=== PATIENT | female | born 1955 | race African-American/Black ===

== ENCOUNTER 2016-09-26 03:07 | Emergency (ER) | payer OTHER, MEDICAID ==
[~2016-09-26] VITALS: Ht 170.2 cm; Wt 50.0 kg
[~2016-09-26 03:07] MED LIST: CARV3 PO; CHOL200016 PO; ESCI20TA PO; FERR-89 PO; FOLI1 PO; FURO20 PO; LEVO50 PO; LISI2.5T2 PO; MAGOX PO; MIRT15 PO; MULT1CAP32 PO; OMEP20CA10 PO; POTA20TA11 PO; SPIR25TA4 PO; TRAZ-144 PO
[2016-09-26] MEDS ORDERED: TRAM50TA4 PO (03:34)
[2016-09-26] MEDS ORDERED: HYDR-309 PO (03:34)
[2016-09-26] MEDS ORDERED: KETOROLAC TROMETHAMINE 60 MG/2 ML VIAL IM ONE (04:30)
[2016-09-26 05:16] VITALS: BP 136/95
[2017-01-24] MEDS ORDERED: CEFO1VIA IV (16:10)
[2017-01-24] MEDS ORDERED: HEPA500017 SQ (16:12)
[2017-01-24] MEDS ORDERED: PROM5SYR2 PO (16:15)
== END 2016-09-26 05:44 | disposition home or self-care (01) ==
LOC: EMS 03:09
DX: Z76.0 Encounter for issue of repeat prescription (principal); G89.29 Other chronic pain; R51 Headache; F12.10 Cannabis abuse, uncomplicated; Z95.0 Presence of cardiac pacemaker; I50.9 Heart failure, unspecified; K21.9 Gastro-esophageal reflux disease without esophagitis; I10 Essential (primary) hypertension; E03.9 Hypothyroidism, unspecified; Z79.899 Other long term (current) drug therapy
CPT/HCPCS: 96372; 99283; J1885

== ENCOUNTER 2016-10-08 15:16 | Inpatient (IN) | payer OTHER ==
[~2016-10-08] VITALS: Ht 167.6 cm; Wt 53.5 kg
[~2016-10-08 15:16] MED LIST changes: +HYDR-309 PO; +TRAM50TA4 PO
[2016-10-08] MEDS ORDERED: SODIUM CHLORIDE 0.9% 1,000 ML IV ONE (16:45)
[2016-10-08] MEDS ORDERED: HYDROmorphone 2 MG/ML SYRINGE IVP ONE (16:45)
[2016-10-08 17:24] LABS: BASOPHILS # (AUTO) 0.03 K/uL (0.00-0.20); BASOPHILS % (AUTO) 0.6 % (0.0-2.0); EOSINOPHILS # (AUTO) 0.02 K/uL (0.00-0.70); EOSINOPHILS % (AUTO) 0.42 % (1.0-6.0); HEMATOCRIT 40.2 % (36-46); HEMOGLOBIN 13.1 g/dL (12.0-16.0); LYMPHOCYTES # (AUTO) 2.4 K/uL (1.0-4.8); LYMPHOCYTES % (AUTO) 51.6 % (22.0-44.0); MEAN CORPUSCULAR HEMOGLOBIN 29.2 pg (26.0-34.0); MEAN CORPUSCULAR HGB CONC 32.6 G/dL (31.0-37.0); MEAN CORPUSCULAR VOLUME 90 fL (80-100); MONOCYTES # (AUTO) 0.4 K/uL (0.1-1.0); NEUTROPHILS # (AUTO) 1.8 K/uL (1.8-7.7); NEUTROPHILS % (AUTO) 38.4 % (40.0-70.0); PLATELET COUNT (AUTO) 174 K/uL (150-450); RED BLOOD CELL COUNT(AUTO) 4.48 MIL/uL (4.00-5.20); RED CELL DISTRIBUTION WIDTH 17.2 % (11.5-14.5); WHITE BLOOD COUNT (AUTO) 4.7 K/uL (4.5-11.0)
[2016-10-08 17:31] LABS: INR 1.3 (0.9-1.1); PROTHROMBIN TIME 13.4 SEC (9.4-11.6)
[2016-10-08 17:35] LABS: ANION GAP 15 mmol/L (8-16); CALCIUM, TOTAL 7.7 mg/dL (8.8-10.5); CARBON DIOXIDE 18 mmol/L (22-29); CHLORIDE 106 mmol/L (98-107); CREATININE 0.88 mg/dL (0.60-1.30); GLOMERULAR FILTR. RATE CALC > 60 mL/min (>60); POTASSIUM 3.8 mmol/L (3.5-5.1); SODIUM SERUM 139 mmol/L (136-145); UREA NITROGEN, BLOOD 16 mg/dL (7-18)
[2016-10-08 17:39] LABS: ALANINE AMINOTRANSFERASE 54 U/L (12-78); ALBUMIN 3.5 g/dL (3.4-5.0); ASPARTATE AMINOTRANSFERASE 59 U/L (15-37); BILIRUBIN,TOTAL 1.5 mg/dL (0.1-1.0); TOTAL PROTEIN, SERUM 7.4 g/dL (6.4-8.2)
[2016-10-08 18:05] LABS: RBC MORPHOLOGY COMMENT ABNORMAL RBC MORPH
[2016-10-08] MEDS ORDERED: ONDANSETRON HCL 4 MG/2 ML VIAL IVP PRN (18:45)
[2016-10-08] MEDS ORDERED: ZOLPIDEM TARTRATE 5 MG TABLET PO PRN (18:45)
[2016-10-08] MEDS ORDERED: OxyCODONE HCL/ACETAMINOPHEN 5-325 MG TABLET PO PRN (18:45)
[2016-10-08 21:42] VITALS: BP 141/92
[2016-10-08 23:47] VITALS: BP 134/88
[2016-10-08] MEDS: HEPARIN SODIUM,PORCINE 5,000 UNITS/ML VIAL SQ SCH (23:51)
[2016-10-09 04:34] VITALS: BP 137/73
[2016-10-09] MEDS: HYDROmorphone 2 MG/ML SYRINGE IVP PRN ×5 (04:48→23:58)
[2016-10-09] MEDS: LEVOTHYROXINE SODIUM 50 MCG TABLET PO SCH (05:39)
[2016-10-09 07:08] VITALS: BP 109/69
[2016-10-09 07:13] LABS: BASOPHILS % (AUTO) 0.3 % (0.0-2.0); EOSINOPHILS % (AUTO) 0.4 % (1.0-6.0); HEMATOCRIT 41.7 % (36-46); HEMOGLOBIN 13.3 g/dL (12.0-16.0); LYMPHOCYTES # (AUTO) 1.7 K/uL (1.0-4.8); LYMPHOCYTES % (AUTO) 27.2 % (22.0-44.0); MEAN CORPUSCULAR HEMOGLOBIN 28.7 pg (26.0-34.0); MEAN CORPUSCULAR HGB CONC 31.8 G/dL (31.0-37.0); MEAN CORPUSCULAR VOLUME 90 fL (80-100); MONOCYTES # (AUTO) 0.6 K/uL (0.1-1.0); MONOCYTES % (AUTO) 9.9 % (2.0-9.0); NEUTROPHILS # (AUTO) 3.8 K/uL (1.8-7.7); NEUTROPHILS % (AUTO) 62.2 % (40.0-70.0); PLATELET COUNT (AUTO) 157 K/uL (150-450); RED BLOOD CELL COUNT(AUTO) 4.62 MIL/uL (4.00-5.20); RED CELL DISTRIBUTION WIDTH 17.5 % (11.5-14.5); WHITE BLOOD COUNT (AUTO) 6.1 K/uL (4.5-11.0)
[2016-10-09] MEDS: HEPARIN SODIUM,PORCINE 5,000 UNITS/ML VIAL SQ SCH ×3 (08:30→23:50)
[2016-10-09] MEDS: PANTOPRAZOLE SODIUM 40 MG DR TABLET PO SCH (08:30)
[2016-10-09] MEDS: FUROSEMIDE 20 MG TABLET PO SCH (08:30)
[2016-10-09] MEDS: FOLIC ACID 1 MG TABLET PO SCH (08:30)
[2016-10-09] MEDS: SPIRONOLACTONE 25 MG TABLET PO SCH (08:30)
[2016-10-09] MEDS: MAGNESIUM OXIDE 400 MG TABLET PO SCH (08:30)
[2016-10-09] MEDS: FERROUS SULFATE 325 MG EC TABLET PO SCH ×3 (08:30→17:18)
[2016-10-09] MEDS: CHOLECALCIFEROL (VIT D3) 2,000 UNITS TABLET PO SCH (08:31)
[2016-10-09] MEDS: LISINOPRIL 5 MG TABLET PO SCH (08:31)
[2016-10-09] MEDS: ESCITALOPRAM OXALATE 20 MG TABLET PO SCH (08:31)
[2016-10-09] MEDS: CARVEDILOL 3.125 MG TABLET PO SCH (08:31)
[2016-10-09 12:02] VITALS: BP 122/81
[2016-10-09 16:03] VITALS: BP 121/79
[2016-10-09 19:19] VITALS: BP 123/82
[2016-10-09] MEDS: TraZODone HCL 50 MG TABLET PO SCH (20:05)
[2016-10-09] MEDS: MIRTAZAPINE 15 MG TABLET PO SCH (20:06)
[2016-10-09] MEDS ORDERED: 0.9% SODIUM CHLORIDE 10 ML SYRINGE IVP PRN (21:15)
[2016-10-09 23:26] VITALS: BP 140/87
[2016-10-10 04:13] VITALS: BP 134/84
[2016-10-10] MEDS: HYDROmorphone 2 MG/ML SYRINGE IVP PRN ×3 (05:36→18:45)
[2016-10-10] MEDS: LEVOTHYROXINE SODIUM 50 MCG TABLET PO SCH (05:36)
[2016-10-10 07:44] VITALS: BP 146/89
[2016-10-10] MEDS: FERROUS SULFATE 325 MG EC TABLET PO SCH ×3 (08:00→17:30)
[2016-10-10] MEDS: HEPARIN SODIUM,PORCINE 5,000 UNITS/ML VIAL SQ SCH (08:00)
[2016-10-10] MEDS: PANTOPRAZOLE SODIUM 40 MG DR TABLET PO SCH (08:08)
[2016-10-10] MEDS: CHOLECALCIFEROL (VIT D3) 2,000 UNITS TABLET PO SCH (08:08)
[2016-10-10] MEDS: ESCITALOPRAM OXALATE 20 MG TABLET PO SCH (08:09)
[2016-10-10] MEDS: LISINOPRIL 5 MG TABLET PO SCH (08:09)
[2016-10-10] MEDS: FOLIC ACID 1 MG TABLET PO SCH (08:09)
[2016-10-10] MEDS: CARVEDILOL 3.125 MG TABLET PO SCH (08:09)
[2016-10-10] MEDS: MAGNESIUM OXIDE 400 MG TABLET PO SCH (08:09)
[2016-10-10] MEDS: FUROSEMIDE 20 MG TABLET PO SCH (08:09)
[2016-10-10] MEDS: SPIRONOLACTONE 25 MG TABLET PO SCH (08:10)
[2016-10-10] MEDS ORDERED: SODIUM CL IRRIG SOLN BAG 3,000 ML IRRIG ONE (09:06)
[2016-10-10] MEDS ORDERED: TRANEXAMIC ACID 1,000 MG in DEXTROSE 5%-WATER 50 ML IV ONE (09:30)
[2016-10-10] MEDS ORDERED: SODIUM CHLORIDE 0.9% 250 ML IV ONE (10:33)
[2016-10-10] MEDS ORDERED: VANCOMYCIN HCL 1 GM/VIAL ONE (11:13)
[2016-10-10] MEDS: BUPIVACAINE HCL/PF 0.5% 30 ML VIAL ONE ×2 (11:15→11:35)
[2016-10-10] MEDS ORDERED: MORPHINE SULFATE 4 MG/ML SYRINGE IVP ONE (12:00)
[2016-10-10] MEDS ORDERED: ROCURONIUM BROMIDE 10 MG/ML 5 ML VIAL IVP ONE (12:00)
[2016-10-10] MEDS ORDERED: FentaNYL CITRATE-PF 250 MCG/5 ML VIAL IVP ONE (12:00)
[2016-10-10] MEDS ORDERED: MIDAZOLAM HCL 2 MG/2 ML VIAL IVP ONE (12:00)
[2016-10-10] MEDS ORDERED: LIDOCAINE HCL/PF 2% 5 ML VIAL INJ ONE (12:00)
[2016-10-10] MEDS ORDERED: 0.9% SODIUM CHLORIDE 10 ML VIAL IVP ONE (12:00)
[2016-10-10] MEDS ORDERED: MORPHINE SULFATE/PF 0.5 MG/ML 10 ML AMP IVP ONE (12:00)
[2016-10-10] MEDS ORDERED: SUCCINYLCHOLINE CHLORIDE 20 MG/ML 10 ML VIAL IVP ONE (12:00)
[2016-10-10] MEDS ORDERED: PHENYLEPHRINE HCL 10 MG/ML VIAL IVP ONE (12:00)
[2016-10-10] MEDS ORDERED: FUROSEMIDE 40 MG/4 ML VIAL ONE (12:17)
[2016-10-10] MEDS ORDERED: SODIUM CHLORIDE 0.9% 1,000 ML IV ONE (12:33)
[2016-10-10 12:35] LABS: ABG A-A DIFF O2 454.3 mmHg (10-20.0); ABG BASE EXCESS -8.4 mmol/L (-2.0-3.0); ABG HCO3 17.7 mmol/L (22.0-26.0); ABG OXYHEMOGLOBIN 97.6 % (94.0-100.0); ABG PCO2 52 mmHg (35-45); TEMPERATURE, FAHRENHEIT, BG 99.6 FAHREN (96.0-98.6)
[2016-10-10 12:44] LABS: ABG PH 7.197 (7.35-7.450)
[2016-10-10 12:45] LABS: BASOPHILS % (AUTO) 0.2 % (0.0-2.0); EOSINOPHILS % (AUTO) 0.3 % (1.0-6.0); HEMATOCRIT 36.7 % (36-46); HEMOGLOBIN 11.6 g/dL (12.0-16.0); LYMPHOCYTES # (AUTO) 1.6 K/uL (1.0-4.8); LYMPHOCYTES % (AUTO) 14.1 % (22.0-44.0); MEAN CORPUSCULAR HEMOGLOBIN 28.9 pg (26.0-34.0); MEAN CORPUSCULAR HGB CONC 31.7 G/dL (31.0-37.0); MEAN CORPUSCULAR VOLUME 91 fL (80-100); MONOCYTES # (AUTO) 0.7 K/uL (0.1-1.0); MONOCYTES % (AUTO) 6.4 % (2.0-9.0); NEUTROPHILS # (AUTO) 9.1 K/uL (1.8-7.7); PLATELET COUNT (AUTO) 125 K/uL (150-450); RED BLOOD CELL COUNT(AUTO) 4.03 MIL/uL (4.00-5.20); RED CELL DISTRIBUTION WIDTH 16.8 % (11.5-14.5); WHITE BLOOD COUNT (AUTO) 11.5 K/uL (4.5-11.0)
[2016-10-10] MEDS: PHENYLEPHRINE 200 MG/D5%-WATER 250 ML IV PRN ×3 (14:06→14:27)
[2016-10-10 16:00] VITALS: BP 135/64
[2016-10-10] MEDS: CeFAZolin 2 GM/DEXTROSE 50 ML IV SCH ×2 (18:20→23:20)
[2016-10-10 18:45] VITALS: BP 108/57
[2016-10-10 19:00] VITALS: BP 98/49
[2016-10-10 20:00] VITALS: BP 93/65
[2016-10-10] MEDS: MIRTAZAPINE 15 MG TABLET PO SCH (21:44)
[2016-10-10] MEDS: TraZODone HCL 50 MG TABLET PO SCH (21:44)
[2016-10-11] VITALS (18 sets, daily range): BP systolic 73–164; BP diastolic 43–77
[2016-10-11] MEDS ORDERED: SODIUM CHLORIDE 0.9% 250 ML IV ONE (02:21)
[2016-10-11] MEDS: CeFAZolin 2 GM/DEXTROSE 50 ML IV SCH (05:06)
[2016-10-11 05:22] LABS: BASOPHILS # (AUTO) 0.01 K/uL (0.00-0.20); BASOPHILS % (AUTO) 0.1 % (0.0-2.0); EOSINOPHILS # (AUTO) 0.12 K/uL (0.00-0.70); EOSINOPHILS % (AUTO) 1.17 % (1.0-6.0); HEMATOCRIT 29.9 % (36-46); HEMOGLOBIN 9.8 g/dL (12.0-16.0); LYMPHOCYTES # (AUTO) 1.3 K/uL (1.0-4.8); LYMPHOCYTES % (AUTO) 12.9 % (22.0-44.0); MEAN CORPUSCULAR HEMOGLOBIN 29.5 pg (26.0-34.0); MEAN CORPUSCULAR HGB CONC 32.8 G/dL (31.0-37.0); MEAN CORPUSCULAR VOLUME 90 fL (80-100); MONOCYTES # (AUTO) 1.2 K/uL (0.1-1.0); MONOCYTES % (AUTO) 11.4 % (2.0-9.0); NEUTROPHILS # (AUTO) 7.5 K/uL (1.8-7.7); NEUTROPHILS % (AUTO) 74.4 % (40.0-70.0); PLATELET COUNT (AUTO) 103 K/uL (150-450); RED BLOOD CELL COUNT(AUTO) 3.32 MIL/uL (4.00-5.20); WHITE BLOOD COUNT (AUTO) 10.1 K/uL (4.5-11.0)
[2016-10-11] MEDS: ACETAMINOPHEN 325 MG TABLET PO PRN (05:26)
[2016-10-11] MEDS: LEVOTHYROXINE SODIUM 50 MCG TABLET PO SCH (05:26)
[2016-10-11 05:30] LABS: ANION GAP 10 mmol/L (8-16); CALCIUM, TOTAL 6.7 mg/dL (8.8-10.5); CARBON DIOXIDE 23 mmol/L (22-29); CHLORIDE 104 mmol/L (98-107); CREATININE 0.81 mg/dL (0.60-1.30); GLOMERULAR FILTR. RATE CALC > 60 mL/min (>60); POTASSIUM 3.6 mmol/L (3.5-5.1); SODIUM SERUM 137 mmol/L (136-145); UREA NITROGEN, BLOOD 12 mg/dL (7-18)
[2016-10-11] MEDS: PHENYLEPHRINE 200 MG/D5%-WATER 250 ML IV PRN ×2 (05:41→23:39)
[2016-10-11] MEDS: CHOLECALCIFEROL (VIT D3) 2,000 UNITS TABLET PO SCH (08:56)
[2016-10-11] MEDS: ESCITALOPRAM OXALATE 20 MG TABLET PO SCH (08:56)
[2016-10-11] MEDS: FOLIC ACID 1 MG TABLET PO SCH (08:56)
[2016-10-11] MEDS: FERROUS SULFATE 325 MG EC TABLET PO SCH ×3 (08:56→16:59)
[2016-10-11] MEDS: MAGNESIUM OXIDE 400 MG TABLET PO SCH (08:56)
[2016-10-11] MEDS: ENOXAPARIN SODIUM 40 MG/0.4 ML PF SYRINGE SQ SCH (08:57)
[2016-10-11] MEDS: PANTOPRAZOLE SODIUM 40 MG DR TABLET PO SCH (08:57)
[2016-10-11] MEDS: FUROSEMIDE 20 MG TABLET PO SCH (08:58)
[2016-10-11] MEDS: SPIRONOLACTONE 25 MG TABLET PO SCH (08:58)
[2016-10-11] MEDS: LISINOPRIL 5 MG TABLET PO SCH (08:58)
[2016-10-11] MEDS: CARVEDILOL 3.125 MG TABLET PO SCH (08:58)
[2016-10-11] MEDS: HYDROmorphone 2 MG/ML SYRINGE IVP PRN ×4 (10:45→21:16)
[2016-10-11] MEDS: OxyCODONE HCL/ACETAMINOPHEN 5-325 MG TABLET PO PRN ×2 (12:50→16:59)
[2016-10-11] MEDS: TraZODone HCL 50 MG TABLET PO SCH (21:10)
[2016-10-11] MEDS: MIRTAZAPINE 15 MG TABLET PO SCH (21:10)
[2016-10-12] VITALS (17 sets, daily range): BP systolic 91–134; BP diastolic 49–70
[2016-10-12] MEDS: HYDROmorphone 2 MG/ML SYRINGE IVP PRN ×3 (03:21→15:48)
[2016-10-12] MEDS: ACETAMINOPHEN 325 MG TABLET PO PRN ×2 (04:22→21:24)
[2016-10-12] MEDS: OxyCODONE HCL/ACETAMINOPHEN 5-325 MG TABLET PO PRN ×3 (05:29→20:23)
[2016-10-12 05:31] LABS: ANION GAP 8 mmol/L (8-16); BASOPHILS % (AUTO) 0.3 % (0.0-2.0); CALCIUM, TOTAL 7.2 mg/dL (8.8-10.5); CARBON DIOXIDE 25 mmol/L (22-29); CHLORIDE 101 mmol/L (98-107); CREATININE 0.86 mg/dL (0.60-1.30); EOSINOPHILS % (AUTO) 1.7 % (1.0-6.0); GLOMERULAR FILTR. RATE CALC > 60 mL/min (>60); HEMATOCRIT 25.5 % (36-46); HEMOGLOBIN 8.2 g/dL (12.0-16.0); LYMPHOCYTES # (AUTO) 1.1 K/uL (1.0-4.8); MEAN CORPUSCULAR HEMOGLOBIN 29.4 pg (26.0-34.0); MEAN CORPUSCULAR HGB CONC 32.2 G/dL (31.0-37.0); MEAN CORPUSCULAR VOLUME 91 fL (80-100); MONOCYTES # (AUTO) 1.3 K/uL (0.1-1.0); MONOCYTES % (AUTO) 17.3 % (2.0-9.0); NEUTROPHILS # (AUTO) 4.9 K/uL (1.8-7.7); NEUTROPHILS % (AUTO) 65.7 % (40.0-70.0); PLATELET COUNT (AUTO) 81 K/uL (150-450); POTASSIUM 3.9 mmol/L (3.5-5.1); RED CELL DISTRIBUTION WIDTH 16.9 % (11.5-14.5); SODIUM SERUM 134 mmol/L (136-145); UREA NITROGEN, BLOOD 10 mg/dL (7-18); WHITE BLOOD COUNT (AUTO) 7.5 K/uL (4.5-11.0)
[2016-10-12] MEDS: LEVOTHYROXINE SODIUM 50 MCG TABLET PO SCH (06:03)
[2016-10-12] MEDS: LISINOPRIL 5 MG TABLET PO SCH (08:42)
[2016-10-12] MEDS: ENOXAPARIN SODIUM 40 MG/0.4 ML PF SYRINGE SQ SCH (08:43)
[2016-10-12] MEDS: MAGNESIUM OXIDE 400 MG TABLET PO SCH (08:53)
[2016-10-12] MEDS: CHOLECALCIFEROL (VIT D3) 2,000 UNITS TABLET PO SCH (08:53)
[2016-10-12] MEDS: FUROSEMIDE 20 MG TABLET PO SCH (08:53)
[2016-10-12] MEDS: SPIRONOLACTONE 25 MG TABLET PO SCH (08:54)
[2016-10-12] MEDS: ESCITALOPRAM OXALATE 20 MG TABLET PO SCH (08:55)
[2016-10-12] MEDS: FOLIC ACID 1 MG TABLET PO SCH (08:56)
[2016-10-12] MEDS: FERROUS SULFATE 325 MG EC TABLET PO SCH ×3 (08:56→20:23)
[2016-10-12] MEDS: PANTOPRAZOLE SODIUM 40 MG DR TABLET PO SCH (08:56)
[2016-10-12] MEDS: CARVEDILOL 3.125 MG TABLET PO SCH (08:57)
[2016-10-12] MEDS ORDERED: FUROSEMIDE 20 MG/2 ML VIAL IVP ONE (13:30)
[2016-10-12] MEDS: MIRTAZAPINE 15 MG TABLET PO SCH (20:23)
[2016-10-12] MEDS: TraZODone HCL 50 MG TABLET PO SCH (21:00)
[2016-10-13] VITALS (19 sets, daily range): BP systolic 90–113; BP diastolic 47–80
[2016-10-13] MEDS ORDERED: SODIUM CHLORIDE 0.9% 250 ML IV ONE (02:30)
[2016-10-13] MEDS: OxyCODONE HCL/ACETAMINOPHEN 5-325 MG TABLET PO PRN ×5 (03:32→21:33)
[2016-10-13] MEDS: LEVOTHYROXINE SODIUM 50 MCG TABLET PO SCH (06:04)
[2016-10-13 07:20] LABS: BASOPHILS # (AUTO) 0.01 K/uL (0.00-0.20); BASOPHILS % (AUTO) 0.2 % (0.0-2.0); EOSINOPHILS # (AUTO) 0.13 K/uL (0.00-0.70); EOSINOPHILS % (AUTO) 1.81 % (1.0-6.0); HEMATOCRIT 32.2 % (36-46); HEMOGLOBIN 10.7 g/dL (12.0-16.0); LYMPHOCYTES # (AUTO) 1.5 K/uL (1.0-4.8); LYMPHOCYTES % (AUTO) 20.6 % (22.0-44.0); MEAN CORPUSCULAR HEMOGLOBIN 29.5 pg (26.0-34.0); MEAN CORPUSCULAR HGB CONC 33.2 G/dL (31.0-37.0); MEAN CORPUSCULAR VOLUME 89 fL (80-100); MONOCYTES # (AUTO) 1.2 K/uL (0.1-1.0); MONOCYTES % (AUTO) 17.1 % (2.0-9.0); NEUTROPHILS # (AUTO) 4.3 K/uL (1.8-7.7); NEUTROPHILS % (AUTO) 60.3 % (40.0-70.0); PLATELET COUNT (AUTO) 83 K/uL (150-450); RED BLOOD CELL COUNT(AUTO) 3.62 MIL/uL (4.00-5.20); RED CELL DISTRIBUTION WIDTH 16.9 % (11.5-14.5); WHITE BLOOD COUNT (AUTO) 7.1 K/uL (4.5-11.0)
[2016-10-13 08:06] LABS: ALANINE AMINOTRANSFERASE 14 U/L (12-78); ALBUMIN 2.1 g/dL (3.4-5.0); ANION GAP 10 mmol/L (8-16); ASPARTATE AMINOTRANSFERASE 18 U/L (15-37); BILIRUBIN,TOTAL 0.9 mg/dL (0.1-1.0); CALCIUM, TOTAL 7.6 mg/dL (8.8-10.5); CARBON DIOXIDE 26 mmol/L (22-29); CHLORIDE 104 mmol/L (98-107); CREATININE 0.74 mg/dL (0.60-1.30); GLOMERULAR FILTR. RATE CALC > 60 mL/min (>60); POTASSIUM 4.4 mmol/L (3.5-5.1); SODIUM SERUM 140 mmol/L (136-145); TOTAL PROTEIN, SERUM 5.5 g/dL (6.4-8.2); UREA NITROGEN, BLOOD 10 mg/dL (7-18)
[2016-10-13] MEDS: SPIRONOLACTONE 25 MG TABLET PO SCH (09:00)
[2016-10-13] MEDS: LISINOPRIL 5 MG TABLET PO SCH (09:00)
[2016-10-13] MEDS: FUROSEMIDE 20 MG TABLET PO SCH (09:00)
[2016-10-13] MEDS: FERROUS SULFATE 325 MG EC TABLET PO SCH ×3 (09:21→17:13)
[2016-10-13] MEDS: CARVEDILOL 3.125 MG TABLET PO SCH (09:21)
[2016-10-13] MEDS: FOLIC ACID 1 MG TABLET PO SCH (09:21)
[2016-10-13] MEDS: CHOLECALCIFEROL (VIT D3) 2,000 UNITS TABLET PO SCH (09:21)
[2016-10-13] MEDS: ESCITALOPRAM OXALATE 20 MG TABLET PO SCH (09:22)
[2016-10-13] MEDS: PANTOPRAZOLE SODIUM 40 MG DR TABLET PO SCH (09:22)
[2016-10-13] MEDS: MAGNESIUM OXIDE 400 MG TABLET PO SCH (09:22)
[2016-10-13] MEDS ORDERED: MAGNESIUM SULFATE 4 GM/WATER 100 ML IV PRN (19:15)
[2016-10-13] MEDS ORDERED: MAGNESIUM OXIDE 400 MG TABLET PO PRN (19:15)
[2016-10-13] MEDS: TraZODone HCL 50 MG TABLET PO SCH (21:00)
[2016-10-13] MEDS ORDERED: SODIUM CHLORIDE 0.9% 100 ML ONE (21:05)
[2016-10-13] MEDS: MIRTAZAPINE 15 MG TABLET PO SCH (21:33)
[2016-10-13] MEDS: MAGNESIUM SULFATE 2 GM in DEXTROSE 5%-WATER 50 ML IV PRN (21:45)
[2016-10-14] VITALS (7 sets, daily range): BP systolic 97–112; BP diastolic 46–72
[2016-10-14] MEDS: OxyCODONE HCL/ACETAMINOPHEN 5-325 MG TABLET PO PRN ×4 (02:01→14:51)
[2016-10-14] MEDS: LEVOTHYROXINE SODIUM 50 MCG TABLET PO SCH (06:14)
[2016-10-14] MEDS: MAGNESIUM OXIDE 400 MG TABLET PO SCH (08:13)
[2016-10-14] MEDS: FERROUS SULFATE 325 MG EC TABLET PO SCH ×3 (08:13→17:56)
[2016-10-14] MEDS: FUROSEMIDE 20 MG TABLET PO SCH (08:13)
[2016-10-14] MEDS: SPIRONOLACTONE 25 MG TABLET PO SCH (08:13)
[2016-10-14] MEDS: FOLIC ACID 1 MG TABLET PO SCH (08:14)
[2016-10-14] MEDS: PANTOPRAZOLE SODIUM 40 MG DR TABLET PO SCH (08:14)
[2016-10-14] MEDS: CHOLECALCIFEROL (VIT D3) 2,000 UNITS TABLET PO SCH (08:14)
[2016-10-14] MEDS: ESCITALOPRAM OXALATE 20 MG TABLET PO SCH (08:14)
[2016-10-14] MEDS: LISINOPRIL 5 MG TABLET PO SCH (12:35)
[2016-10-14] MEDS: CARVEDILOL 3.125 MG TABLET PO SCH (12:35)
[2016-10-14] MEDS: MIRTAZAPINE 15 MG TABLET PO SCH (19:57)
[2016-10-14] MEDS: TraZODone HCL 50 MG TABLET PO SCH (19:57)
[2016-10-14] MEDS: ACETAMINOPHEN 325 MG TABLET PO PRN (19:58)
[2016-10-15] MEDS: OxyCODONE HCL/ACETAMINOPHEN 5-325 MG TABLET PO PRN ×2 (04:25→15:42)
[2016-10-15 05:47] VITALS: BP 97/43
[2016-10-15 05:59] LABS: BASOPHILS % (AUTO) 0.6 % (0.0-2.0); EOSINOPHILS % (AUTO) 1.7 % (1.0-6.0); HEMATOCRIT 32.4 % (36-46); HEMOGLOBIN 10.4 g/dL (12.0-16.0); LYMPHOCYTES # (AUTO) 1.5 K/uL (1.0-4.8); LYMPHOCYTES % (AUTO) 19.6 % (22.0-44.0); MEAN CORPUSCULAR HEMOGLOBIN 28.7 pg (26.0-34.0); MEAN CORPUSCULAR HGB CONC 32.1 G/dL (31.0-37.0); MEAN CORPUSCULAR VOLUME 89 fL (80-100); MONOCYTES # (AUTO) 1.9 K/uL (0.1-1.0); MONOCYTES % (AUTO) 24.3 % (2.0-9.0); NEUTROPHILS # (AUTO) 4.2 K/uL (1.8-7.7); NEUTROPHILS % (AUTO) 53.8 % (40.0-70.0); PLATELET COUNT (AUTO) 157 K/uL (150-450); RED BLOOD CELL COUNT(AUTO) 3.62 MIL/uL (4.00-5.20); RED CELL DISTRIBUTION WIDTH 16.3 % (11.5-14.5); WHITE BLOOD COUNT (AUTO) 7.8 K/uL (4.5-11.0)
[2016-10-15] MEDS: LEVOTHYROXINE SODIUM 50 MCG TABLET PO SCH (06:16)
[2016-10-15 06:21] LABS: ALANINE AMINOTRANSFERASE 13 U/L (12-78); ALBUMIN 2.1 g/dL (3.4-5.0); ASPARTATE AMINOTRANSFERASE 19 U/L (15-37); CHLORIDE 99 mmol/L (98-107); CREATININE 0.82 mg/dL (0.60-1.30); GLOMERULAR FILTR. RATE CALC > 60 mL/min (>60); POTASSIUM 4.7 mmol/L (3.5-5.1); TOTAL PROTEIN, SERUM 6.1 g/dL (6.4-8.2); UREA NITROGEN, BLOOD 15 mg/dL (7-18)
[2016-10-15 07:15] VITALS: BP 92/62
[2016-10-15 07:27] LABS: ANION GAP 12 mmol/L (8-16); CARBON DIOXIDE 27 mmol/L (22-29); SODIUM SERUM 138 mmol/L (136-145)
[2016-10-15] MEDS: PANTOPRAZOLE SODIUM 40 MG DR TABLET PO SCH (08:39)
[2016-10-15] MEDS: FOLIC ACID 1 MG TABLET PO SCH (08:39)
[2016-10-15] MEDS: ACETAMINOPHEN 325 MG TABLET PO PRN ×2 (08:39→12:08)
[2016-10-15] MEDS: MAGNESIUM OXIDE 400 MG TABLET PO SCH (08:39)
[2016-10-15] MEDS: FERROUS SULFATE 325 MG EC TABLET PO SCH ×3 (08:39→18:02)
[2016-10-15] MEDS: CHOLECALCIFEROL (VIT D3) 2,000 UNITS TABLET PO SCH (08:40)
[2016-10-15] MEDS: ESCITALOPRAM OXALATE 20 MG TABLET PO SCH (08:40)
[2016-10-15] MEDS: LISINOPRIL 5 MG TABLET PO SCH (09:00)
[2016-10-15] MEDS: FUROSEMIDE 20 MG TABLET PO SCH (09:00)
[2016-10-15] MEDS: SPIRONOLACTONE 25 MG TABLET PO SCH (09:00)
[2016-10-15] MEDS: CARVEDILOL 3.125 MG TABLET PO SCH (09:00)
[2016-10-15 11:12] VITALS: BP 97/66
[2016-10-15] MEDS: MAGNESIUM SULFATE 2 GM in DEXTROSE 5%-WATER 50 ML IV PRN (15:27)
[2016-10-15 16:09] VITALS: BP 102/69
[2016-10-15] MEDS ORDERED: ENOXAPARIN SODIUM 40 MG/0.4 ML PF SYRINGE SQ ONE (19:00)
[2017-01-24] MEDS ORDERED: CEFO1VIA IV (16:10)
[2017-01-24] MEDS ORDERED: HEPA500017 SQ (16:12)
[2017-01-24] MEDS ORDERED: PROM5SYR2 PO (16:15)
== END 2016-10-15 19:15 | DRG 469 ==
LOC: EMS 15:18 → 6N 21:00 → ICU 10-10 15:37 → 5N 10-12 17:25 → 6N 10-14 18:45
PROVIDERS: ADMIT Hospitalist; ATTEND Hospitalist
PROC: 0LQK0ZZ Repair Left Hip Tendon, Open Approach (ICD-10-PCS; 2016-10-10)
PROC: 0SRS0JZ Replacement of Left Hip Joint, Femoral Surface with Synthetic Substitute, Open Approach (ICD-10-PCS; principal; 2016-10-10 10:40)
PROC: 30233N1 Transfusion of Nonautologous Red Blood Cells into Peripheral Vein, Percutaneous Approach (ICD-10-PCS; 2016-10-12)
DX: S72.002A Fracture of unspecified part of neck of left femur, initial encounter for closed fracture (principal); E43 Unspecified severe protein-calorie malnutrition; I50.22 Chronic systolic (congestive) heart failure; R64 Cachexia; Z68.1 Body mass index [BMI] 19.9 or less, adult; K74.60 Unspecified cirrhosis of liver; E03.9 Hypothyroidism, unspecified; Y90.7 Blood alcohol level of 200-239 mg/100 ml; D64.9 Anemia, unspecified; E11.9 Type 2 diabetes mellitus without complications; D69.6 Thrombocytopenia, unspecified; F12.90 Cannabis use, unspecified, uncomplicated; I25.10 Atherosclerotic heart disease of native coronary artery without angina pectoris; I25.5 Ischemic cardiomyopathy; I70.0 Atherosclerosis of aorta; K75.9 Inflammatory liver disease, unspecified; K21.9 Gastro-esophageal reflux disease without esophagitis; G89.29 Other chronic pain; F10.229 Alcohol dependence with intoxication, unspecified; B19.20 Unspecified viral hepatitis C without hepatic coma; I11.0 Hypertensive heart disease with heart failure; K80.20 Calculus of gallbladder without cholecystitis without obstruction; W18.39XA Other fall on same level, initial encounter; Z79.1 Long term (current) use of non-steroidal anti-inflammatories (NSAID); Z95.810 Presence of automatic (implantable) cardiac defibrillator; Z79.899 Other long term (current) drug therapy; Z98.890 Other specified postprocedural states; Y93.89 Activity, other specified; Y92.89 Other specified places as the place of occurrence of the external cause; Y99.8 Other external cause status
CPT/HCPCS: 51702; 73503; 73552; 82805; 83735; 86850; 86900; 86901; 86920; 87081; 88300; 93005; 93306; 96361; 96374; 97110; 97116; 97161; 97530; 99285; G0480; J0330; J0690; J1170; J1644; J1650; J1940; J2250; J2270; J2274; J2370; J3010; J3370; J3475; J3490; J7030; J7050; J7060; P9016

== ENCOUNTER 2016-10-16 01:24 | Emergency (ER) | payer OTHER, MEDICAID ==
[~2016-10-16] VITALS: Ht 170.2 cm; Wt 49.1 kg
[2016-10-16 02:34] LABS: EOSINOPHILS % (AUTO) 1.9 % (1.0-6.0); LYMPHOCYTES # (AUTO) 0.9 K/uL (1.0-4.8); MONOCYTES # (AUTO) 0.9 K/uL (0.1-1.0); NEUTROPHILS # (AUTO) 2.3 K/uL (1.8-7.7); RED CELL DISTRIBUTION WIDTH 16.1 % (11.5-14.5)
[2016-10-16 02:38] LABS: BASOPHILS % (AUTO) 0.4 % (0.0-2.0); HEMATOCRIT 49.5 % (36-46); LYMPHOCYTES % (AUTO) 22.4 % (22.0-44.0); MEAN CORPUSCULAR HEMOGLOBIN 28.6 pg (26.0-34.0); MEAN CORPUSCULAR HGB CONC 32.4 G/dL (31.0-37.0); MEAN CORPUSCULAR VOLUME 89 fL (80-100); MONOCYTES % (AUTO) 21.4 % (2.0-9.0); NEUTROPHILS % (AUTO) 53.9 % (40.0-70.0); PLATELET COUNT (AUTO) 123 K/uL (150-450); RED BLOOD CELL COUNT(AUTO) 5.59 MIL/uL (4.00-5.20); WHITE BLOOD COUNT (AUTO) 4.2 K/uL (4.5-11.0)
[2016-10-16 02:42] LABS: ANION GAP 4 mmol/L (8-16); CALCIUM, TOTAL 8.3 mg/dL (8.8-10.5); CARBON DIOXIDE 32 mmol/L (22-29); CHLORIDE 98 mmol/L (98-107); CREATININE 0.76 mg/dL (0.60-1.30); GLOMERULAR FILTR. RATE CALC > 60 mL/min (>60); POTASSIUM 4.6 mmol/L (3.5-5.1); SODIUM SERUM 134 mmol/L (136-145); UREA NITROGEN, BLOOD 15 mg/dL (7-18)
[2016-10-16 02:48] LABS: ALANINE AMINOTRANSFERASE 12 U/L (12-78); ALBUMIN 2.3 g/dL (3.4-5.0); ASPARTATE AMINOTRANSFERASE 19 U/L (15-37); BILIRUBIN,TOTAL 1.2 mg/dL (0.1-1.0); TOTAL PROTEIN, SERUM 6.6 g/dL (6.4-8.2)
[2016-10-16 02:50] LABS: LACTIC ACID 1.5 mmol/L (0.4-2.0)
[2016-10-16 03:01] LABS: B-TYPE NATRIURETIC PEPTIDE 112 pg/mL (0-100)
[2016-10-16] MEDS ORDERED: CefTRIAXone 1 GM/DEXTROSE 50 ML IV ONE (03:45)
[2016-10-16] MEDS ORDERED: ONDANSETRON HCL 4 MG/2 ML VIAL IVP ONE (03:45)
[2016-10-16] MEDS ORDERED: HYDROmorphone 2 MG/ML SYRINGE IVP ONE (03:45)
[2016-10-16 03:53] LABS: APPEARANCE,URINE CLEAR (CLEAR); GLUCOSE, URINE (UA) NEGATIVE (NEGATIVE); KETONES,URINE NEGATIVE (NEGATIVE); LEUKOCYTE ESTERASE ,URINE NEGATIVE (NEGATIVE); OCCULT BLOOD,URINE NEGATIVE (NEGATIVE); PH,URINE 7.5 (5.0-8.0); PROTEIN,URINE NEGATIVE (NEGATIVE)
[2016-10-16 04:15] LABS: RBC,URINE None Seen /HPF (0-2); WBC,URINE None Seen /HPF (0-5)
[2016-10-16 04:25] LABS: INR 1.2 (0.9-1.1); PROTHROMBIN TIME 12.4 SEC (9.4-11.6)
[2016-10-16] MEDS ORDERED: IOVERSOL 350 MG/ML 100 ML VIAL ONE (06:09)
[2016-10-16] MEDS ORDERED: SODIUM CHLORIDE 0.9% 100 ML ONE (06:09)
[2016-10-16] MEDS ORDERED: HYDROCODONE/ACETAMINOPHEN 5-325 MG TABLET PO ONE (12:00)
[2016-10-16 12:06] VITALS: BP 104/75
[2017-01-24] MEDS ORDERED: CEFO1VIA IV (16:10)
[2017-01-24] MEDS ORDERED: HEPA500017 SQ (16:12)
[2017-01-24] MEDS ORDERED: PROM5SYR2 PO (16:15)
== END 2016-10-16 13:38 | disposition home or self-care (01) ==
LOC: EMS 01:25
DX: J40 Bronchitis, not specified as acute or chronic (principal); R50.9 Fever, unspecified; F12.90 Cannabis use, unspecified, uncomplicated
CPT/HCPCS: 36415; 71010; 71275; 80053; 81001; 83605; 83690; 83880; 84484; 85025; 85379; 85610; 85730; 87040; 93005; 96365; 96375; 99285; J0696; J1170; J2405; J7050; Q9967

== ENCOUNTER 2016-11-05 05:47 | Emergency (ER) | payer OTHER, MEDICAID ==
[~2016-11-05] VITALS: Ht 170.2 cm; Wt 50.0 kg
[~2016-11-05 05:47] MED LIST changes: -FERR-89 PO; +FERS325 PO
[2016-11-05] MEDS ORDERED: ASPI81TA2 PO (06:05)
[2016-11-05] MEDS ORDERED: OxyCODONE HCL/ACETAMINOPHEN 5-325 MG TABLET PO ONE (07:15)
[2016-11-05 07:22] VITALS: BP 109/64
== END 2016-11-05 07:24 | disposition home or self-care (01) ==
LOC: EMS 05:50
DX: S72.002A Fracture of unspecified part of neck of left femur, initial encounter for closed fracture (principal); G89.29 Other chronic pain; I25.10 Atherosclerotic heart disease of native coronary artery without angina pectoris; E05.90 Thyrotoxicosis, unspecified without thyrotoxic crisis or storm; K21.9 Gastro-esophageal reflux disease without esophagitis; I11.0 Hypertensive heart disease with heart failure; I50.9 Heart failure, unspecified; F12.90 Cannabis use, unspecified, uncomplicated; Z79.82 Long term (current) use of aspirin; Z95.0 Presence of cardiac pacemaker; X58.XXXA Exposure to other specified factors, initial encounter; Y93.89 Activity, other specified; Y92.89 Other specified places as the place of occurrence of the external cause; Y99.8 Other external cause status
CPT/HCPCS: 99283

== ENCOUNTER 2017-02-14 09:00 | Emergency (ER) | payer OTHER ==
[~2017-02-14] VITALS: Ht 170.2 cm; Wt 47.7 kg
[~2017-02-14 09:00] MED LIST changes: +ASPI81TA2 PO; +CEFO1VIA IV; +FERR-89 PO; -FERS325 PO; -FURO20 PO; +HEPA500017 SQ; -HYDR-309 PO; +PROM5SYR2 PO; -SPIR25TA4 PO
[2017-02-14] MEDS ORDERED: HYDROCODONE/ACETAMINOPHEN 10-325 MG TABLET PO ONE (10:45)
[2017-02-14] MEDS ORDERED: ONDANSETRON HCL 4 MG TABLET PO ONE (10:45)
[2017-02-14 10:59] LABS: BASOPHILS % (AUTO) 0.9 % (0.0-2.0); EOSINOPHILS % (AUTO) 5.2 % (1.0-6.0); HEMATOCRIT 32.9 % (36-46); HEMOGLOBIN 10.9 g/dL (12.0-16.0); LYMPHOCYTES # (AUTO) 1.6 K/uL (1.0-4.8); LYMPHOCYTES % (AUTO) 28.7 % (22.0-44.0); MEAN CORPUSCULAR HEMOGLOBIN 28.4 pg (26.0-34.0); MEAN CORPUSCULAR HGB CONC 33.1 G/dL (31.0-37.0); MEAN CORPUSCULAR VOLUME 86 fL (80-100); MONOCYTES # (AUTO) 0.8 K/uL (0.1-1.0); MONOCYTES % (AUTO) 13.9 % (2.0-9.0); NEUTROPHILS # (AUTO) 2.9 K/uL (1.8-7.7); NEUTROPHILS % (AUTO) 51.3 % (40.0-70.0); PLATELET COUNT (AUTO) 184 K/uL (150-450); RED BLOOD CELL COUNT(AUTO) 3.83 MIL/uL (4.00-5.20); RED CELL DISTRIBUTION WIDTH 16.3 % (11.5-14.5); WHITE BLOOD COUNT (AUTO) 5.7 K/uL (4.5-11.0)
[2017-02-14 11:08] LABS: ANION GAP 5 mmol/L (8-16); CALCIUM, TOTAL 7.2 mg/dL (8.8-10.5); CARBON DIOXIDE 29 mmol/L (22-29); CHLORIDE 105 mmol/L (98-107); CREATININE 0.76 mg/dL (0.60-1.30); GLOMERULAR FILTR. RATE CALC > 60 mL/min (>60); SODIUM SERUM 139 mmol/L (136-145); UREA NITROGEN, BLOOD 6 mg/dL (7-18)
[2017-02-14 11:14] LABS: ALANINE AMINOTRANSFERASE 10 U/L (12-78); ALBUMIN 1.9 g/dL (3.4-5.0); ASPARTATE AMINOTRANSFERASE 16 U/L (15-37); BILIRUBIN,TOTAL 0.4 mg/dL (0.1-1.0); TOTAL PROTEIN, SERUM 6.2 g/dL (6.4-8.2)
[2017-02-14 11:59] LABS: ERYTHROCYTE SEDIMENTATION RATE 36 MM/HR (0-20)
[2017-02-14 12:15] VITALS: BP 108/72
== END 2017-02-14 13:07 | disposition home or self-care (01) ==
LOC: EMS 09:02
DX: S86.912A Strain of unspecified muscle(s) and tendon(s) at lower leg level, left leg, initial encounter (principal); S46.812A Strain of other muscles, fascia and tendons at shoulder and upper arm level, left arm, initial encounter; I11.0 Hypertensive heart disease with heart failure; I50.9 Heart failure, unspecified; Z95.0 Presence of cardiac pacemaker; K21.9 Gastro-esophageal reflux disease without esophagitis; F12.90 Cannabis use, unspecified, uncomplicated; Z79.82 Long term (current) use of aspirin; Z88.8 Allergy status to other drugs, medicaments and biological substances; Z79.899 Other long term (current) drug therapy; X58.XXXA Exposure to other specified factors, initial encounter; Y93.9 Activity, unspecified; Y92.9 Unspecified place or not applicable; Y99.9 Unspecified external cause status
CPT/HCPCS: 36415; 71020; 73562; 80053; 85025; 85651; 86140; 99285; Q0162

== ENCOUNTER 2017-02-21 13:52 | Emergency (ER) | payer OTHER ==
[~2017-02-21] VITALS: Ht 160 cm; Wt 63.6 kg
[2017-02-21] MEDS ORDERED: HYDROCODONE/ACETAMINOPHEN 5-325 MG TABLET PO ONE (17:00)
[2017-02-21 17:26] VITALS: BP 132/74
== END 2017-02-21 17:38 | disposition home or self-care (01) ==
LOC: EMS 13:55
DX: G89.29 Other chronic pain (principal); M25.552 Pain in left hip; F12.10 Cannabis abuse, uncomplicated; Z95.0 Presence of cardiac pacemaker; E03.9 Hypothyroidism, unspecified; I50.9 Heart failure, unspecified; K21.9 Gastro-esophageal reflux disease without esophagitis; I11.0 Hypertensive heart disease with heart failure; Z79.899 Other long term (current) drug therapy
CPT/HCPCS: 99283

== ENCOUNTER 2017-04-09 05:59 | Emergency (ER) | payer OTHER ==
[~2017-04-09] VITALS: Ht 170.2 cm; Wt 59.1 kg
[~2017-04-09 05:59] MED LIST changes: -ASPI81TA2 PO; -HEPA500017 SQ; -MAGOX PO; -POTA20TA11 PO; -PROM5SYR2 PO
[2017-04-09] MEDS ORDERED: TRAZ-144 PO (06:16)
[2017-04-09 06:22] LABS: GLUCOSE,POINT OF CARE 135 MG/DL (70-110)
[2017-04-09] MEDS ORDERED: DEXTROSE 5%-LACTATED RINGERS 1,000 ML IV ONE (06:45)
[2017-04-09 06:57] LABS: BASOPHILS # (AUTO) 0.02 K/uL (0.00-0.20); BASOPHILS % (AUTO) 0.5 % (0.0-2.0); EOSINOPHILS # (AUTO) 0.04 K/uL (0.00-0.70); EOSINOPHILS % (AUTO) 0.87 % (1.0-6.0); HEMATOCRIT 25.4 % (36-46); HEMOGLOBIN 8.4 g/dL (12.0-16.0); LYMPHOCYTES # (AUTO) 2.1 K/uL (1.0-4.8); LYMPHOCYTES % (AUTO) 50.9 % (22.0-44.0); MEAN CORPUSCULAR HEMOGLOBIN 30.5 pg (26.0-34.0); MEAN CORPUSCULAR HGB CONC 33.2 G/dL (31.0-37.0); MEAN CORPUSCULAR VOLUME 92 fL (80-100); MONOCYTES # (AUTO) 0.5 K/uL (0.1-1.0); MONOCYTES % (AUTO) 12.9 % (2.0-9.0); NEUTROPHILS # (AUTO) 1.4 K/uL (1.8-7.7); NEUTROPHILS % (AUTO) 34.8 % (40.0-70.0); PLATELET COUNT (AUTO) 88 K/uL (150-450); RED BLOOD CELL COUNT(AUTO) 2.77 MIL/uL (4.00-5.20); RED CELL DISTRIBUTION WIDTH 20.4 % (11.5-14.5); WHITE BLOOD COUNT (AUTO) 4.1 K/uL (4.5-11.0)
[2017-04-09 07:07] LABS: ANION GAP 18 mmol/L (8-16); CALCIUM, TOTAL 7.1 mg/dL (8.8-10.5); CARBON DIOXIDE 17 mmol/L (22-29); CHLORIDE 108 mmol/L (98-107); CREATININE 1.29 mg/dL (0.60-1.30); GLOMERULAR FILTR. RATE CALC 51 mL/min (>60); POTASSIUM 3.9 mmol/L (3.5-5.1); SODIUM SERUM 143 mmol/L (136-145); UREA NITROGEN, BLOOD 16 mg/dL (7-18)
[2017-04-09 07:09] LABS: INR 1.2 (0.9-1.1); PROTHROMBIN TIME 13.1 SEC (9.4-11.6)
[2017-04-09 07:13] LABS: ALANINE AMINOTRANSFERASE 23 U/L (12-78); ALBUMIN 2.5 g/dL (3.4-5.0); ASPARTATE AMINOTRANSFERASE 52 U/L (15-37); BILIRUBIN,TOTAL 0.4 mg/dL (0.1-1.0); CHOL/HDL RATIO 1.6 (3.9-5.7); TOTAL PROTEIN, SERUM 5.9 g/dL (6.4-8.2)
[2017-04-09] MEDS ORDERED: BARIUM SULFATE 0.1% SUSPENSION 450 ML BOTTLE PO ONE (07:15)
[2017-04-09] MEDS ORDERED: ONDANSETRON HCL 4 MG/2 ML VIAL IVP ONE (07:15)
[2017-04-09] MEDS ORDERED: MORPHINE SULFATE 4 MG/ML SYRINGE IVP ONE (07:15)
[2017-04-09] MEDS ORDERED: PANTOPRAZOLE SODIUM 40 MG/VIAL IVP ONE (08:45)
[2017-04-09] MEDS ORDERED: OCTREOTIDE ACETATE 100 MCG/ML VIAL IVP ONE (08:45)
[2017-04-09] MEDS ORDERED: IOVERSOL 350 MG/ML 100 ML VIAL ONE (08:49)
[2017-04-09] MEDS ORDERED: SODIUM CHLORIDE 0.9% 100 ML ONE (08:49)
[2017-04-09 09:35] LABS: APPEARANCE,URINE CLEAR (CLEAR); GLUCOSE, URINE (UA) NEGATIVE (NEGATIVE); KETONES,URINE NEGATIVE (NEGATIVE); LEUKOCYTE ESTERASE ,URINE SMALL (NEGATIVE); OCCULT BLOOD,URINE SMALL (NEGATIVE); PH,URINE 5.5 (5.0-8.0); PROTEIN,URINE NEGATIVE (NEGATIVE)
[2017-04-09 10:00] LABS: ADD UA MICROSCOPIC YES; FINE GRANULAR CASTS,URINE 0-2 /LPF (None Seen); SQUAMOUS EPITHELIAL CELL,UR Few /LPF (None Seen)
[2017-04-09 13:30] VITALS: BP 93/58
[2017-04-09 13:44] VITALS: BP 95/57
[2017-04-09 13:52] VITALS: BP 90/65
== END 2017-04-09 14:17 | disposition short-term general hospital (02) ==
LOC: EMS 06:01
DX: K92.2 Gastrointestinal hemorrhage, unspecified (principal); D64.9 Anemia, unspecified; D69.6 Thrombocytopenia, unspecified; K70.9 Alcoholic liver disease, unspecified; K83.8 Other specified diseases of biliary tract; I11.0 Hypertensive heart disease with heart failure; I50.9 Heart failure, unspecified; E03.9 Hypothyroidism, unspecified; F12.90 Cannabis use, unspecified, uncomplicated; K21.9 Gastro-esophageal reflux disease without esophagitis; Z95.0 Presence of cardiac pacemaker
CPT/HCPCS: 36415; 36430; 71010; 74177; 80053; 80061; 81001; 82271; 82962; 84484; 85025; 85610; 85730; 86850; 86900; 86901; 86920; 93005; 96365; 96366; 96375; 99291; C9113; J2270; J2354; J2405; J7050; P9016; Q9967

== ENCOUNTER 2017-05-12 05:25 | Inpatient (IN) | payer OTHER ==
[~2017-05-12] VITALS: Ht 170.2 cm; Wt 45.6 kg
[~2017-05-12 05:25] MED LIST changes: -CEFO1VIA IV; -TRAM50TA4 PO
[2017-05-12] MEDS ORDERED: SODIUM CHLORIDE 0.9% 1,000 ML IV ONE ×3 (05:45→08:30)
[2017-05-12 06:17] LABS: BASOPHILS # (AUTO) 0.03 K/uL (0.00-0.20); BASOPHILS % (AUTO) 0.4 % (0.0-2.0); EOSINOPHILS # (AUTO) 0.03 K/uL (0.00-0.70); EOSINOPHILS % (AUTO) 0.46 % (1.0-6.0); HEMATOCRIT 38.5 % (36-46); HEMOGLOBIN 12.9 g/dL (12.0-16.0); LYMPHOCYTES % (AUTO) 29.3 % (22.0-44.0); MEAN CORPUSCULAR HEMOGLOBIN 31.3 pg (26.0-34.0); MEAN CORPUSCULAR HGB CONC 33.6 G/dL (31.0-37.0); MEAN CORPUSCULAR VOLUME 93 fL (80-100); MONOCYTES # (AUTO) 0.4 K/uL (0.1-1.0); NEUTROPHILS # (AUTO) 4.4 K/uL (1.8-7.7); NEUTROPHILS % (AUTO) 63.9 % (40.0-70.0); PLATELET COUNT (AUTO) 95 K/uL (150-450); RED BLOOD CELL COUNT(AUTO) 4.13 MIL/uL (4.00-5.20); RED CELL DISTRIBUTION WIDTH 17.3 % (11.5-14.5); WHITE BLOOD COUNT (AUTO) 6.8 K/uL (4.5-11.0)
[2017-05-12 07:04] LABS: INR 1.2 (0.9-1.1); PROTHROMBIN TIME 12.5 SEC (9.4-11.6)
[2017-05-12 07:05] LABS: ANION GAP 14 mmol/L (8-16); CALCIUM, TOTAL 7.7 mg/dL (8.8-10.5); CARBON DIOXIDE 18 mmol/L (22-29); CHLORIDE 106 mmol/L (98-107); CREATININE 2.01 mg/dL (0.60-1.30); GLOMERULAR FILTR. RATE CALC 30 mL/min (>60); POTASSIUM 4.3 mmol/L (3.5-5.1); SODIUM SERUM 138 mmol/L (136-145); UREA NITROGEN, BLOOD 19 mg/dL (7-18)
[2017-05-12 07:11] LABS: ALANINE AMINOTRANSFERASE 24 U/L (12-78); ALBUMIN 2.8 g/dL (3.4-5.0); ASPARTATE AMINOTRANSFERASE 33 U/L (15-37); BILIRUBIN,TOTAL 0.7 mg/dL (0.1-1.0); CREATINE KINASE, TOTAL 35 U/L (26-192); TOTAL PROTEIN, SERUM 6.4 g/dL (6.4-8.2)
[2017-05-12 07:27] LABS: APPEARANCE,URINE TURBID (CLEAR); GLUCOSE, URINE (UA) NEGATIVE (NEGATIVE); KETONES,URINE 15 mg/dL (NEGATIVE); LEUKOCYTE ESTERASE ,URINE MODERATE (NEGATIVE); OCCULT BLOOD,URINE SMALL (NEGATIVE); PROTEIN,URINE POS 1+ (NEGATIVE)
[2017-05-12] MEDS ORDERED: ACETAMINOPHEN 325 MG TABLET PO ONE (07:30)
[2017-05-12 07:31] LABS: RBC MORPHOLOGY COMMENT ABNORMAL RBC MORPH
[2017-05-12 07:49] LABS: ADD UA MICROSCOPIC YES
[2017-05-12 07:52] LABS: RENAL EPITHELIAL CELLS,URINE Moderate /LPF (None Seen); SQUAMOUS EPITHELIAL CELL,UR Moderate /LPF (None Seen)
[2017-05-12] MEDS ORDERED: CefTRIAXone 1 GM/DEXTROSE 50 ML IV ONE (08:00)
[2017-05-12] MEDS ORDERED: ONDANSETRON HCL 4 MG/2 ML VIAL IVP PRN (08:30)
[2017-05-12] MEDS ORDERED: ACETAMINOPHEN 325 MG TABLET PO PRN ×2 (08:30→11:30)
[2017-05-12 10:32] VITALS: BP 97/63
[2017-05-12 11:40] VITALS: BP 98/68
[2017-05-12] MEDS ORDERED: INFLUENZA VIRUS VACCINE QVS 2017-18 (3YR+)/PF 60 MCG/0.5 ML SYRINGE IM ONE (12:00)
[2017-05-12] MEDS: FERROUS SULFATE 325 MG EC TABLET PO SCH ×2 (12:58→17:03)
[2017-05-12 15:20] VITALS: BP 105/76
[2017-05-12] MEDS: HYDROCODONE/ACETAMINOPHEN 5-325 MG TABLET PO PRN (15:35)
[2017-05-12] MEDS ORDERED: HEPARIN SODIUM,PORCINE 5,000 UNITS/ML VIAL SQ SCH (16:00)
[2017-05-12] MEDS: OMEPRAZOLE 20 MG CAPSULE PO SCH (17:03)
[2017-05-12] MEDS: MIRTAZAPINE 15 MG TABLET PO SCH (19:55)
[2017-05-12] MEDS: TraZODone HCL 50 MG TABLET PO SCH (19:55)
[2017-05-12 20:30] VITALS: BP 92/50
[2017-05-12 23:34] VITALS: BP 98/55
[2017-05-13 04:45] VITALS: BP 94/62
[2017-05-13] MEDS: HYDROCODONE/ACETAMINOPHEN 5-325 MG TABLET PO PRN ×2 (04:54→21:20)
[2017-05-13] MEDS: LEVOTHYROXINE SODIUM 50 MCG TABLET PO SCH (05:54)
[2017-05-13 07:35] VITALS: BP 90/51
[2017-05-13] MEDS: CHOLECALCIFEROL (VIT D3) 2,000 UNITS TABLET PO SCH (08:01)
[2017-05-13] MEDS: FOLIC ACID 1 MG TABLET PO SCH (08:01)
[2017-05-13] MEDS: FERROUS SULFATE 325 MG EC TABLET PO SCH ×3 (08:01→17:26)
[2017-05-13] MEDS: OMEPRAZOLE 20 MG CAPSULE PO SCH (08:01)
[2017-05-13] MEDS: ESCITALOPRAM OXALATE 20 MG TABLET PO SCH (08:01)
[2017-05-13] MEDS: CefTRIAXone 1 GM/DEXTROSE 50 ML IV SCH (08:29)
[2017-05-13] MEDS ORDERED: OMEPRAZOLE 20 MG CAPSULE PO SCH (09:00)
[2017-05-13 11:27] VITALS: BP 94/73
[2017-05-13 16:22] VITALS: BP 90/58
[2017-05-13 19:47] VITALS: BP 111/58
[2017-05-13] MEDS: MIRTAZAPINE 15 MG TABLET PO SCH (20:02)
[2017-05-13] MEDS: TraZODone HCL 50 MG TABLET PO SCH (20:02)
[2017-05-14] VITALS: BP 101/52
[2017-05-14 04:29] VITALS: BP 97/51
[2017-05-14] MEDS: LEVOTHYROXINE SODIUM 50 MCG TABLET PO SCH (07:05)
[2017-05-14 07:35] VITALS: BP 111/53
[2017-05-14] MEDS: HYDROCODONE/ACETAMINOPHEN 5-325 MG TABLET PO PRN ×3 (07:50→21:17)
[2017-05-14] MEDS: FERROUS SULFATE 325 MG EC TABLET PO SCH ×3 (07:50→17:51)
[2017-05-14] MEDS: CefTRIAXone 1 GM/DEXTROSE 50 ML IV SCH (07:50)
[2017-05-14] MEDS: OMEPRAZOLE 20 MG CAPSULE PO SCH (08:00)
[2017-05-14] MEDS: FOLIC ACID 1 MG TABLET PO SCH (08:00)
[2017-05-14] MEDS: ESCITALOPRAM OXALATE 20 MG TABLET PO SCH (08:00)
[2017-05-14] MEDS: CHOLECALCIFEROL (VIT D3) 2,000 UNITS TABLET PO SCH (08:00)
[2017-05-14 11:35] VITALS: BP 127/58
[2017-05-14 15:39] VITALS: BP 100/51
[2017-05-14 20:04] VITALS: BP 96/54
[2017-05-14] MEDS: MIRTAZAPINE 15 MG TABLET PO SCH (20:04)
[2017-05-14] MEDS: TraZODone HCL 50 MG TABLET PO SCH (20:05)
[2017-05-15 00:23] VITALS: BP 91/51
[2017-05-15 03:28] VITALS: BP 116/67
[2017-05-15] MEDS: HYDROCODONE/ACETAMINOPHEN 5-325 MG TABLET PO PRN ×3 (03:35→15:43)
[2017-05-15] MEDS: LEVOTHYROXINE SODIUM 50 MCG TABLET PO SCH (05:45)
[2017-05-15 07:33] VITALS: BP 105/57
[2017-05-15] MEDS: CefTRIAXone 1 GM/DEXTROSE 50 ML IV SCH (08:08)
[2017-05-15] MEDS: FERROUS SULFATE 325 MG EC TABLET PO SCH ×2 (08:09→11:46)
[2017-05-15] MEDS: ESCITALOPRAM OXALATE 20 MG TABLET PO SCH (08:09)
[2017-05-15] MEDS: OMEPRAZOLE 20 MG CAPSULE PO SCH (08:09)
[2017-05-15] MEDS: FOLIC ACID 1 MG TABLET PO SCH (08:09)
[2017-05-15] MEDS ORDERED: SODIUM CHLORIDE 0.9% 250 ML IV ONE (08:14)
[2017-05-15] MEDS ORDERED: MULTIVITAMINS, THERAPEUTIC TABLET PO SCH (09:00)
[2017-05-15] MEDS: CHOLECALCIFEROL (VIT D3) 2,000 UNITS TABLET PO SCH (09:23)
[2017-05-15 11:37] VITALS: BP 93/50
[2017-05-15] MEDS ORDERED: ACET-66 PO (14:51)
[2017-05-15] MEDS ORDERED: HYDR-4061 PO (14:53)
[2017-05-15] MEDS ORDERED: CEFT1FRO3 IV (14:54)
[2017-05-15 15:38] VITALS: BP 117/68
[2017-08-27] MEDS ORDERED: OMEP20 PO (11:56)
[2017-08-27] MEDS ORDERED: SLOWK8 PO (11:56)
[2017-08-27] MEDS ORDERED: MIRT15 PO (11:56)
[2017-08-27] MEDS ORDERED: FURO20 PO (12:08)
[2017-08-30] MEDS ORDERED: LOSA25TA21 PO (14:28)
[2017-08-30] MEDS ORDERED: CARV12 PO (14:29)
== END 2017-05-15 17:00 | DRG 280 ==
LOC: EMS 05:27 → 5S 09:24
PROVIDERS: ADMIT Family Medicine; ATTEND Family Medicine
PROC: 3E0234Z Introduction of Serum, Toxoid and Vaccine into Muscle, Percutaneous Approach (ICD-10-PCS; principal; 2017-05-12)
DX: I21.4 Non-ST elevation (NSTEMI) myocardial infarction (principal); N17.0 Acute kidney failure with tubular necrosis; I13.0 Hypertensive heart and chronic kidney disease with heart failure and stage 1 through stage 4 chronic kidney disease, or unspecified chronic kidney disease; I50.22 Chronic systolic (congestive) heart failure; N39.0 Urinary tract infection, site not specified; E86.0 Dehydration; E05.90 Thyrotoxicosis, unspecified without thyrotoxic crisis or storm; M19.90 Unspecified osteoarthritis, unspecified site; G89.4 Chronic pain syndrome; F10.20 Alcohol dependence, uncomplicated; K76.9 Liver disease, unspecified; K21.9 Gastro-esophageal reflux disease without esophagitis; N18.9 Chronic kidney disease, unspecified; E03.9 Hypothyroidism, unspecified; E78.5 Hyperlipidemia, unspecified; F12.90 Cannabis use, unspecified, uncomplicated; I25.10 Atherosclerotic heart disease of native coronary artery without angina pectoris; I25.5 Ischemic cardiomyopathy; Z95.810 Presence of automatic (implantable) cardiac defibrillator; Z23 Encounter for immunization
CPT/HCPCS: 51702; 83605; 87086; 90471; 93005; 93306; 96361; 96365; 96366; 96375; 97116; 97163; 97166; 97530; 99291; J0696; J7030; J7050

== ENCOUNTER 2017-06-03 11:01 | Inpatient (IN) | payer OTHER ==
[~2017-06-03] VITALS: Ht 170.2 cm; Wt 47.7 kg
[~2017-06-03 11:01] MED LIST changes: +ACET-66 PO; +CEFT1FRO3 IV; +HYDR-4061 PO; -LISI2.5T2 PO
[2017-06-03] MEDS ORDERED: SILVER SULFADIAZINE 1% 25 GM CREAM TP ONE (11:30)
[2017-06-03] MEDS ORDERED: HYDROmorphone 2 MG/ML SYRINGE IVP ONE (11:45)
[2017-06-03 12:11] LABS: EOSINOPHILS % (AUTO) 1.5 % (1.0-6.0); HEMATOCRIT 35.7 % (36-46); HEMOGLOBIN 11.6 g/dL (12.0-16.0); LYMPHOCYTES # (AUTO) 2.2 K/uL (1.0-4.8); LYMPHOCYTES % (AUTO) 34.1 % (22.0-44.0); MEAN CORPUSCULAR HEMOGLOBIN 30.4 pg (26.0-34.0); MEAN CORPUSCULAR HGB CONC 32.3 G/dL (31.0-37.0); MEAN CORPUSCULAR VOLUME 94 fL (80-100); MONOCYTES # (AUTO) 0.3 K/uL (0.1-1.0); MONOCYTES % (AUTO) 5.4 % (2.0-9.0); NEUTROPHILS # (AUTO) 3.7 K/uL (1.8-7.7); PLATELET COUNT (AUTO) 143 K/uL (150-450); RED CELL DISTRIBUTION WIDTH 16.4 % (11.5-14.5); WHITE BLOOD COUNT (AUTO) 6.4 K/uL (4.5-11.0)
[2017-06-03 12:32] LABS: B-TYPE NATRIURETIC PEPTIDE 434 pg/mL (0-100)
[2017-06-03 12:49] LABS: LACTIC ACID 2.1 mmol/L (0.4-2.0)
[2017-06-03 13:08] LABS: ANION GAP 9 mmol/L (8-16); CALCIUM, TOTAL 7.9 mg/dL (8.8-10.5); CARBON DIOXIDE 25 mmol/L (22-29); CHLORIDE 107 mmol/L (98-107); GLOMERULAR FILTR. RATE CALC > 60 mL/min (>60); POTASSIUM 4.9 mmol/L (3.5-5.1); SODIUM SERUM 141 mmol/L (136-145); UREA NITROGEN, BLOOD 7 mg/dL (7-18)
[2017-06-03 13:11] LABS: ALANINE AMINOTRANSFERASE 15 U/L (12-78); ALBUMIN 2.7 g/dL (3.4-5.0); ASPARTATE AMINOTRANSFERASE 19 U/L (15-37); BILIRUBIN,TOTAL 0.3 mg/dL (0.1-1.0); TOTAL PROTEIN, SERUM 6.2 g/dL (6.4-8.2)
[2017-06-03] MEDS ORDERED: ACETAMINOPHEN 325 MG TABLET PO PRN ×2 (13:30→16:45)
[2017-06-03] MEDS ORDERED: ONDANSETRON HCL 4 MG/2 ML VIAL IVP PRN (13:30)
[2017-06-03] MEDS ORDERED: VANCOMYCIN HCL 1 GM/D5% WATER 200 ML IV ONE (13:30)
[2017-06-03] MEDS ORDERED: 0.9% SODIUM CHLORIDE 10 ML SYRINGE IVP PRN ×2 (13:30→16:45)
[2017-06-03 14:07] LABS: REFLEX LACTIC ACID? YES YES
[2017-06-03] MEDS ORDERED: SODIUM CHLORIDE 0.9% 500 ML IV ONE (14:26)
[2017-06-03 15:20] VITALS: BP 152/84
[2017-06-03] MEDS ORDERED: -PHARMACY VACCINE NOTE- MISC ONE ×2 (16:00)
[2017-06-03] MEDS: CHOLECALCIFEROL (VIT D3) 1,000 UNITS TABLET PO SCH (16:45)
[2017-06-03] MEDS: OMEPRAZOLE 20 MG CAPSULE PO SCH (16:45)
[2017-06-03] MEDS ORDERED: VANCOMYCIN HCL 1 GM/D5% WATER 200 ML IV SCH (16:45)
[2017-06-03] MEDS: FOLIC ACID 1 MG TABLET PO SCH (16:45)
[2017-06-03] MEDS: ESCITALOPRAM OXALATE 20 MG TABLET PO SCH (16:45)
[2017-06-03] MEDS ORDERED: [UNRECOGNIZED DRUG - OTHER] IV SCH (16:45)
[2017-06-03] MEDS: LEVOTHYROXINE SODIUM 50 MCG TABLET PO SCH (16:45)
[2017-06-03 18:07] LABS: ANION GAP 6 mmol/L (8-16); CALCIUM, TOTAL 7.6 mg/dL (8.8-10.5); CARBON DIOXIDE 28 mmol/L (22-29); CHLORIDE 108 mmol/L (98-107); GLOMERULAR FILTR. RATE CALC > 60 mL/min (>60); POTASSIUM 4.5 mmol/L (3.5-5.1); SODIUM SERUM 142 mmol/L (136-145); UREA NITROGEN, BLOOD 6 mg/dL (7-18)
[2017-06-03] MEDS: CARVEDILOL 3.125 MG TABLET PO SCH (18:39)
[2017-06-03] MEDS: MULTIVITAMINS, THERAPEUTIC TABLET PO SCH (18:41)
[2017-06-03] MEDS: FERROUS SULFATE 325 MG EC TABLET PO SCH (18:41)
[2017-06-03] MEDS: HYDROCODONE/ACETAMINOPHEN 5-325 MG TABLET PO PRN (18:46)
[2017-06-03 19:47] VITALS: BP 98/62
[2017-06-03] MEDS: MIRTAZAPINE 15 MG TABLET PO SCH (20:46)
[2017-06-03] MEDS: TraZODone HCL 50 MG TABLET PO SCH (20:46)
[2017-06-03] MEDS: CefTRIAXone 1 GM/DEXTROSE 50 ML IV SCH (23:33)
[2017-06-04] VITALS (7 sets, daily range): BP systolic 98–111; BP diastolic 64–76
[2017-06-04] MEDS: HYDROCODONE/ACETAMINOPHEN 5-325 MG TABLET PO PRN ×3 (04:57→15:03)
[2017-06-04] MEDS: LEVOTHYROXINE SODIUM 50 MCG TABLET PO SCH (06:23)
[2017-06-04 07:32] LABS: BASOPHILS % (AUTO) 0.1 % (0.0-2.0); EOSINOPHILS % (AUTO) 2.1 % (1.0-6.0); HEMOGLOBIN 9.5 g/dL (12.0-16.0); LYMPHOCYTES # (AUTO) 2.2 K/uL (1.0-4.8); LYMPHOCYTES % (AUTO) 49.4 % (22.0-44.0); MEAN CORPUSCULAR HEMOGLOBIN 30.6 pg (26.0-34.0); MEAN CORPUSCULAR HGB CONC 32.8 G/dL (31.0-37.0); MEAN CORPUSCULAR VOLUME 93 fL (80-100); MONOCYTES # (AUTO) 0.4 K/uL (0.1-1.0); MONOCYTES % (AUTO) 9.9 % (2.0-9.0); NEUTROPHILS # (AUTO) 1.7 K/uL (1.8-7.7); NEUTROPHILS % (AUTO) 38.5 % (40.0-70.0); PLATELET COUNT (AUTO) 166 K/uL (150-450); RED BLOOD CELL COUNT(AUTO) 3.11 MIL/uL (4.00-5.20); RED CELL DISTRIBUTION WIDTH 15.7 % (11.5-14.5); WHITE BLOOD COUNT (AUTO) 4.5 K/uL (4.5-11.0)
[2017-06-04] MEDS: MULTIVITAMINS, THERAPEUTIC TABLET PO SCH (07:47)
[2017-06-04] MEDS: VANCOMYCIN HCL 750 MG in DEXTROSE 5%-WATER 150 ML IV SCH ×2 (07:47→20:15)
[2017-06-04] MEDS: ESCITALOPRAM OXALATE 20 MG TABLET PO SCH (07:47)
[2017-06-04] MEDS: OMEPRAZOLE 20 MG CAPSULE PO SCH (07:47)
[2017-06-04] MEDS: CHOLECALCIFEROL (VIT D3) 1,000 UNITS TABLET PO SCH (07:47)
[2017-06-04] MEDS: FOLIC ACID 1 MG TABLET PO SCH (07:48)
[2017-06-04] MEDS: CARVEDILOL 3.125 MG TABLET PO SCH (07:48)
[2017-06-04] MEDS: FERROUS SULFATE 325 MG EC TABLET PO SCH ×3 (07:48→18:22)
[2017-06-04 07:49] LABS: ANION GAP 6 mmol/L (8-16); CALCIUM, TOTAL 7.3 mg/dL (8.8-10.5); CARBON DIOXIDE 26 mmol/L (22-29); CHLORIDE 110 mmol/L (98-107); CREATININE 0.77 mg/dL (0.60-1.30); GLOMERULAR FILTR. RATE CALC > 60 mL/min (>60); POTASSIUM 4.5 mmol/L (3.5-5.1); SODIUM SERUM 142 mmol/L (136-145); UREA NITROGEN, BLOOD 6 mg/dL (7-18)
[2017-06-04] MEDS: MIRTAZAPINE 15 MG TABLET PO SCH (20:15)
[2017-06-04] MEDS: TraZODone HCL 50 MG TABLET PO SCH (20:15)
[2017-06-04] MEDS: CefTRIAXone 1 GM/DEXTROSE 50 ML IV SCH (22:24)
[2017-06-05 04:46] VITALS: BP 117/76
[2017-06-05] MEDS: HYDROCODONE/ACETAMINOPHEN 5-325 MG TABLET PO PRN ×3 (05:42→18:08)
[2017-06-05] MEDS: LEVOTHYROXINE SODIUM 50 MCG TABLET PO SCH (05:42)
[2017-06-05 07:30] LABS: ANION GAP 5 mmol/L (8-16); CALCIUM, TOTAL 7.4 mg/dL (8.8-10.5); CARBON DIOXIDE 27 mmol/L (22-29); CHLORIDE 111 mmol/L (98-107); CREATININE 0.81 mg/dL (0.60-1.30); GLOMERULAR FILTR. RATE CALC > 60 mL/min (>60); SODIUM SERUM 143 mmol/L (136-145); UREA NITROGEN, BLOOD 5 mg/dL (7-18)
[2017-06-05] MEDS: MULTIVITAMINS, THERAPEUTIC TABLET PO SCH (07:44)
[2017-06-05] MEDS: VANCOMYCIN HCL 750 MG in DEXTROSE 5%-WATER 150 ML IV SCH ×2 (07:45→19:52)
[2017-06-05] MEDS: FOLIC ACID 1 MG TABLET PO SCH (07:45)
[2017-06-05] MEDS: CHOLECALCIFEROL (VIT D3) 1,000 UNITS TABLET PO SCH (07:45)
[2017-06-05] MEDS: ESCITALOPRAM OXALATE 20 MG TABLET PO SCH (07:45)
[2017-06-05] MEDS: OMEPRAZOLE 20 MG CAPSULE PO SCH (07:45)
[2017-06-05] MEDS: FERROUS SULFATE 325 MG EC TABLET PO SCH ×3 (07:45→18:03)
[2017-06-05] MEDS: CARVEDILOL 3.125 MG TABLET PO SCH (07:45)
[2017-06-05 08:04] VITALS: BP 104/65
[2017-06-05] MEDS ORDERED: MAGNESIUM SULFATE 4 GM/WATER 100 ML IV PRN (11:15)
[2017-06-05] MEDS ORDERED: MAGNESIUM OXIDE 400 MG TABLET PO PRN (11:15)
[2017-06-05] MEDS ORDERED: MAGNESIUM SULFATE 2 GM in DEXTROSE 5%-WATER 50 ML IV PRN (11:15)
[2017-06-05 11:57] VITALS: BP 98/69
[2017-06-05 20:20] VITALS: BP 101/66
[2017-06-05] MEDS: TraZODone HCL 50 MG TABLET PO SCH (20:26)
[2017-06-05] MEDS: MIRTAZAPINE 15 MG TABLET PO SCH (20:26)
[2017-06-05] MEDS: CefTRIAXone 1 GM/DEXTROSE 50 ML IV SCH (22:57)
[2017-06-05 23:12] VITALS: BP 110/69
[2017-06-06 03:44] VITALS: BP 124/78
[2017-06-06] MEDS: HYDROCODONE/ACETAMINOPHEN 5-325 MG TABLET PO PRN ×4 (04:09→23:14)
[2017-06-06] MEDS: LEVOTHYROXINE SODIUM 50 MCG TABLET PO SCH (06:06)
[2017-06-06 07:10] VITALS: BP 106/68
[2017-06-06] MEDS: VANCOMYCIN HCL 750 MG in DEXTROSE 5%-WATER 150 ML IV SCH ×2 (07:57→19:51)
[2017-06-06] MEDS: OMEPRAZOLE 20 MG CAPSULE PO SCH (07:58)
[2017-06-06] MEDS: CHOLECALCIFEROL (VIT D3) 1,000 UNITS TABLET PO SCH (07:58)
[2017-06-06] MEDS: FERROUS SULFATE 325 MG EC TABLET PO SCH ×3 (07:58→17:09)
[2017-06-06] MEDS: ESCITALOPRAM OXALATE 20 MG TABLET PO SCH (07:58)
[2017-06-06] MEDS: MULTIVITAMINS, THERAPEUTIC TABLET PO SCH (07:58)
[2017-06-06] MEDS: CARVEDILOL 3.125 MG TABLET PO SCH (07:58)
[2017-06-06] MEDS: FOLIC ACID 1 MG TABLET PO SCH (07:59)
[2017-06-06 08:39] LABS: ANION GAP 6 mmol/L (8-16); CARBON DIOXIDE 25 mmol/L (22-29); CHLORIDE 111 mmol/L (98-107); CREATININE 0.88 mg/dL (0.60-1.30); GLOMERULAR FILTR. RATE CALC > 60 mL/min (>60); POTASSIUM 5.6 mmol/L (3.5-5.1); SODIUM SERUM 142 mmol/L (136-145); UREA NITROGEN, BLOOD 4 mg/dL (7-18)
[2017-06-06 11:28] VITALS: BP 112/80
[2017-06-06] MEDS ORDERED: SODIUM POLYSTYRENE SULFONATE 15 GM/60 ML SUSPENSION BOTTLE PO ONE (11:45)
[2017-06-06 16:04] VITALS: BP 97/60
[2017-06-06] MEDS: MIRTAZAPINE 15 MG TABLET PO SCH (20:13)
[2017-06-06] MEDS: TraZODone HCL 50 MG TABLET PO SCH (20:13)
[2017-06-06 20:27] VITALS: BP 101/66
[2017-06-06] MEDS ORDERED: SODIUM CHLORIDE 0.9% 500 ML IV ONE (21:58)
[2017-06-06 23:12] VITALS: BP 103/64
[2017-06-06] MEDS: CefTRIAXone 1 GM/DEXTROSE 50 ML IV SCH (23:15)
[2017-06-07 04:23] VITALS: BP 117/76
[2017-06-07] MEDS: LEVOTHYROXINE SODIUM 50 MCG TABLET PO SCH (06:10)
[2017-06-07] MEDS: HYDROCODONE/ACETAMINOPHEN 5-325 MG TABLET PO PRN ×2 (06:16→13:01)
[2017-06-07 07:00] LABS: ANION GAP 6 mmol/L (8-16); CALCIUM, TOTAL 7.8 mg/dL (8.8-10.5); CARBON DIOXIDE 26 mmol/L (22-29); CHLORIDE 111 mmol/L (98-107); GLOMERULAR FILTR. RATE CALC > 60 mL/min (>60); POTASSIUM 5.6 mmol/L (3.5-5.1); SODIUM SERUM 143 mmol/L (136-145); UREA NITROGEN, BLOOD 4 mg/dL (7-18)
[2017-06-07 07:40] VITALS: BP 124/77
[2017-06-07] MEDS: VANCOMYCIN HCL 750 MG in DEXTROSE 5%-WATER 150 ML IV SCH (09:03)
[2017-06-07] MEDS: OMEPRAZOLE 20 MG CAPSULE PO SCH (09:05)
[2017-06-07] MEDS: CHOLECALCIFEROL (VIT D3) 1,000 UNITS TABLET PO SCH (09:05)
[2017-06-07] MEDS: FERROUS SULFATE 325 MG EC TABLET PO SCH ×2 (09:06→13:36)
[2017-06-07] MEDS: CARVEDILOL 3.125 MG TABLET PO SCH (09:06)
[2017-06-07] MEDS: ESCITALOPRAM OXALATE 20 MG TABLET PO SCH (09:06)
[2017-06-07] MEDS: FOLIC ACID 1 MG TABLET PO SCH (09:06)
[2017-06-07] MEDS: MULTIVITAMINS, THERAPEUTIC TABLET PO SCH (09:06)
[2017-06-07 11:51] VITALS: BP 95/69
[2017-06-07] MEDS ORDERED: CEPH500 PO (14:44)
[2017-06-07 16:22] VITALS: BP 100/65
[2017-08-27] MEDS ORDERED: OMEP20 PO (11:56)
[2017-08-27] MEDS ORDERED: SLOWK8 PO (11:56)
[2017-08-27] MEDS ORDERED: MIRT15 PO (11:56)
[2017-08-27] MEDS ORDERED: FURO20 PO (12:08)
[2017-08-30] MEDS ORDERED: LOSA25TA21 PO (14:28)
[2017-08-30] MEDS ORDERED: CARV12 PO (14:29)
== END 2017-06-07 17:00 | disposition home or self-care (01) | DRG 603 ==
LOC: EMS 11:03 → 6N 13:49
PROVIDERS: ADMIT Family Medicine; ATTEND Family Medicine
DX: L03.116 Cellulitis of left lower limb (principal); I11.0 Hypertensive heart disease with heart failure; E44.0 Moderate protein-calorie malnutrition; I50.9 Heart failure, unspecified; F11.20 Opioid dependence, uncomplicated; Z68.1 Body mass index [BMI] 19.9 or less, adult; L03.115 Cellulitis of right lower limb; I25.10 Atherosclerotic heart disease of native coronary artery without angina pectoris; M19.90 Unspecified osteoarthritis, unspecified site; F10.20 Alcohol dependence, uncomplicated; K21.9 Gastro-esophageal reflux disease without esophagitis; E03.9 Hypothyroidism, unspecified; G89.4 Chronic pain syndrome; I49.9 Cardiac arrhythmia, unspecified; F12.90 Cannabis use, unspecified, uncomplicated; Z95.810 Presence of automatic (implantable) cardiac defibrillator; Z98.891 History of uterine scar from previous surgery; Z79.899 Other long term (current) drug therapy
CPT/HCPCS: 83605; 83735; 87040; 87081; 93005; 96374; 97161; 99285; G0480; J0696; J1170; J3370; J3475; J7040; J7060

== ENCOUNTER 2017-07-19 06:38 | Emergency (ER) | payer OTHER ==
[~2017-07-19] VITALS: Ht 170.2 cm; Wt 53.6 kg
[~2017-07-19 06:38] MED LIST changes: +CEPH500 PO; -HYDR-4061 PO
[2017-07-19] MEDS ORDERED: FURO20 PO (06:51)
[2017-07-19] MEDS ORDERED: IPRATROPIUM BROMIDE 0.5 MG/2.5 ML NEB SOLUTION NEB ONE (07:00)
[2017-07-19] MEDS ORDERED: ALBUTEROL SULFATE 2.5 MG/0.5 ML NEB SOLUTION NEB ONE (07:00)
[2017-07-19 07:30] LABS: BASOPHILS # (AUTO) 0.06 K/uL (0.00-0.20); BASOPHILS % (AUTO) 0.9 % (0.0-2.0); EOSINOPHILS # (AUTO) 0.05 K/uL (0.00-0.70); EOSINOPHILS % (AUTO) 0.73 % (1.0-6.0); HEMATOCRIT 32.4 % (36-46); HEMOGLOBIN 10.3 g/dL (12.0-16.0); LYMPHOCYTES # (AUTO) 1.4 K/uL (1.0-4.8); LYMPHOCYTES % (AUTO) 19.9 % (22.0-44.0); MEAN CORPUSCULAR HEMOGLOBIN 28.2 pg (26.0-34.0); MEAN CORPUSCULAR HGB CONC 31.9 G/dL (31.0-37.0); MEAN CORPUSCULAR VOLUME 88 fL (80-100); MONOCYTES # (AUTO) 0.5 K/uL (0.1-1.0); MONOCYTES % (AUTO) 7.7 % (2.0-9.0); NEUTROPHILS # (AUTO) 4.8 K/uL (1.8-7.7); NEUTROPHILS % (AUTO) 70.8 % (40.0-70.0); PLATELET COUNT (AUTO) 253 K/uL (150-450); RED BLOOD CELL COUNT(AUTO) 3.67 MIL/uL (4.00-5.20); RED CELL DISTRIBUTION WIDTH 16.4 % (11.5-14.5); WHITE BLOOD COUNT (AUTO) 6.8 K/uL (4.5-11.0)
[2017-07-19 07:34] LABS: ANION GAP 8 mmol/L (8-16); CALCIUM, TOTAL 7.1 mg/dL (8.8-10.5); CARBON DIOXIDE 29 mmol/L (22-29); CHLORIDE 108 mmol/L (98-107); CREATININE 0.63 mg/dL (0.60-1.30); GLOMERULAR FILTR. RATE CALC > 60 mL/min (>60); POTASSIUM 3.2 mmol/L (3.5-5.1); SODIUM SERUM 145 mmol/L (136-145); UREA NITROGEN, BLOOD 4 mg/dL (7-18)
[2017-07-19 07:36] LABS: INR 1.2 (0.9-1.1)
[2017-07-19 07:37] LABS: B-TYPE NATRIURETIC PEPTIDE 1390 pg/mL (0-100)
[2017-07-19 07:40] LABS: ALANINE AMINOTRANSFERASE 16 U/L (12-78); ALBUMIN 2.3 g/dL (3.4-5.0); ASPARTATE AMINOTRANSFERASE 24 U/L (15-37); BILIRUBIN,TOTAL 0.3 mg/dL (0.1-1.0); CREATINE KINASE, TOTAL 48 U/L (26-192)
[2017-07-19] MEDS ORDERED: FUROSEMIDE 20 MG TABLET PO ONE (08:30)
[2017-07-19] MEDS ORDERED: POTASSIUM CHLORIDE 20 MEQ ER TABLET PO ONE (08:45)
[2017-07-19 10:40] LABS: APPEARANCE,URINE CLEAR (CLEAR); GLUCOSE, URINE (UA) NEGATIVE (NEGATIVE); KETONES,URINE NEGATIVE (NEGATIVE); LEUKOCYTE ESTERASE ,URINE TRACE (NEGATIVE); OCCULT BLOOD,URINE NEGATIVE (NEGATIVE); PROTEIN,URINE NEGATIVE (NEGATIVE)
[2017-07-19 10:43] LABS: ADD UA MICROSCOPIC YES
[2017-07-19 10:44] LABS: RBC,URINE 0-2 /HPF (0-2); SQUAMOUS EPITHELIAL CELL,UR Few /LPF (None Seen); WBC,URINE 0-2 /HPF (0-5)
[2017-07-19 11:17] VITALS: BP 131/81
[2017-08-27] MEDS ORDERED: MIRT15 PO (11:56)
[2017-08-27] MEDS ORDERED: OMEP20 PO (11:56)
[2017-08-27] MEDS ORDERED: SLOWK8 PO (11:56)
[2017-08-27] MEDS ORDERED: FURO20 PO (12:08)
[2017-08-30] MEDS ORDERED: LOSA25TA21 PO (14:28)
[2017-08-30] MEDS ORDERED: CARV12 PO (14:29)
== END 2017-07-19 11:59 | disposition home or self-care (01) ==
LOC: EMS 06:41
DX: E87.6 Hypokalemia (principal); J98.9 Respiratory disorder, unspecified; I11.0 Hypertensive heart disease with heart failure; I50.9 Heart failure, unspecified; K21.9 Gastro-esophageal reflux disease without esophagitis; F12.90 Cannabis use, unspecified, uncomplicated; E03.9 Hypothyroidism, unspecified; Z95.0 Presence of cardiac pacemaker
CPT/HCPCS: 93005; 94640; 99285

== ENCOUNTER 2017-10-25 11:08 | Emergency (ER) | payer OTHER, MEDICAID ==
[~2017-10-25] VITALS: Ht 170.2 cm; Wt 46.6 kg
[~2017-10-25 11:08] MED LIST changes: -ACET-66 PO; +CARV12 PO; -CARV3 PO; -CEFT1FRO3 IV; -CEPH500 PO; -FERR-89 PO; +FURO20 PO; +LOSA25TA21 PO; -MULT1CAP32 PO; +OMEP20 PO; -OMEP20CA10 PO; +SLOWK8 PO; -TRAZ-144 PO
[2017-10-25] MEDS ORDERED: CARV10CR PO (11:20)
[2017-10-25 12:17] LABS: BASOPHILS % (AUTO) 0.8 % (0.0-2.0); EOSINOPHILS % (AUTO) 1.6 % (1.0-6.0); HEMATOCRIT 38.7 % (36-46); HEMOGLOBIN 12.5 g/dL (12.0-16.0); LYMPHOCYTES # (AUTO) 1.1 K/uL (1.0-4.8); LYMPHOCYTES % (AUTO) 51.2 % (22.0-44.0); MEAN CORPUSCULAR HEMOGLOBIN 29.5 pg (26.0-34.0); MEAN CORPUSCULAR HGB CONC 32.4 G/dL (31.0-37.0); MEAN CORPUSCULAR VOLUME 91 fL (80-100); MONOCYTES # (AUTO) 0.5 K/uL (0.1-1.0); MONOCYTES % (AUTO) 21.2 % (2.0-9.0); NEUTROPHILS # (AUTO) 0.5 K/uL (1.8-7.7); NEUTROPHILS % (AUTO) 25.2 % (40.0-70.0); PLATELET COUNT (AUTO) 92 K/uL (150-450); RED BLOOD CELL COUNT(AUTO) 4.25 MIL/uL (4.00-5.20); RED CELL DISTRIBUTION WIDTH 17.8 % (11.5-14.5)
[2017-10-25 12:30] LABS: ANION GAP 13 mmol/L (8-16); CALCIUM, TOTAL 7.4 mg/dL (8.8-10.5); CARBON DIOXIDE 25 mmol/L (22-29); CHLORIDE 109 mmol/L (98-107); CREATININE 0.74 mg/dL (0.60-1.30); GLOMERULAR FILTR. RATE CALC > 60 mL/min (>60); GLUCOSE,RANDOM 86 mg/dL (70-110); INR 1.2 (0.9-1.1); POTASSIUM 3.6 mmol/L (3.5-5.1); PROTHROMBIN TIME 12.9 SEC (9.4-11.6); SODIUM SERUM 147 mmol/L (136-145); UREA NITROGEN, BLOOD 5 mg/dL (7-18)
[2017-10-25 12:36] LABS: ALANINE AMINOTRANSFERASE 46 U/L (12-78); ALBUMIN 2.8 g/dL (3.4-5.0); ALKALINE PHOSPHATASE 127 U/L (46-116); ASPARTATE AMINOTRANSFERASE 102 U/L (15-37); BILIRUBIN,TOTAL 0.7 mg/dL (0.1-1.0); LIPASE 27 U/L (73-393); TOTAL PROTEIN, SERUM 6.9 g/dL (6.4-8.2)
[2017-10-25 12:44] LABS: B-TYPE NATRIURETIC PEPTIDE 311 pg/mL (0-100)
[2017-10-25 12:56] LABS: THYROID STIMULATING HORMONE 0.25 uIU/mL (0.36-3.74)
[2017-10-25] MEDS ORDERED: ACETAMINOPHEN 500 MG TABLET PO ONE (13:30)
[2017-10-25] MEDS ORDERED: IBUPROFEN 600 MG TABLET PO ONE (16:00)
[2017-10-25 16:36] LABS: APPEARANCE,URINE CLOUDY (CLEAR); BILIRUBIN,URINE NEGATIVE (NEGATIVE); GLUCOSE, URINE (UA) NEGATIVE (NEGATIVE); KETONES,URINE NEGATIVE (NEGATIVE); LEUKOCYTE ESTERASE ,URINE TRACE (NEGATIVE); NITRATE,URINE NEGATIVE (NEGATIVE); OCCULT BLOOD,URINE MODERATE (NEGATIVE); PH,URINE 5.5 (5.0-8.0); PROTEIN,URINE NEGATIVE (NEGATIVE)
[2017-10-25 16:40] LABS: AMPHET/METH SCREEN,URINE NEGATIVE (NEGATIVE); BARBITURATE SCREEN, URINE NEGATIVE (NEGATIVE); BENZODIAZEPINES SCREEN,URINE NEGATIVE (NEGATIVE); CANNABINOID SCREEN,URINE POSITIVE (NEGATIVE); COCAINE SCREEN,URINE NEGATIVE (NEGATIVE); METHADONE SCREEN, URINE NEGATIVE (NEGATIVE); OPIATE SCREEN,URINE NEGATIVE (NEGATIVE)
[2017-10-25 16:41] LABS: PHENCYCLIDINE SCREEN,URINE NEGATIVE (NEGATIVE)
[2017-10-25 17:00] LABS: RBC,URINE 0-2 /HPF (0-2)
[2017-10-25 17:01] LABS: BACTERIA,URINE Rare /HPF (None Seen); SQUAMOUS EPITHELIAL CELL,UR Few /LPF (None Seen); WBC,URINE 0-2 /HPF (0-5)
[2017-10-25 17:10] VITALS: BP 134/80
== END 2017-10-25 17:48 | disposition home or self-care (01) ==
LOC: EMS 11:12
DX: K64.4 Residual hemorrhoidal skin tags (principal); K62.3 Rectal prolapse; K62.5 Hemorrhage of anus and rectum; I11.0 Hypertensive heart disease with heart failure; I50.9 Heart failure, unspecified; E03.9 Hypothyroidism, unspecified; K21.9 Gastro-esophageal reflux disease without esophagitis; F12.90 Cannabis use, unspecified, uncomplicated
CPT/HCPCS: 36415; 74022; 80053; 80307; 81001; 83690; 83880; 84443; 85025; 85610; 85730; 93005; 99285; G0480

== ENCOUNTER 2017-11-21 21:38 | Emergency (ER) | payer OTHER ==
[~2017-11-21] VITALS: Ht 157.5 cm; Wt 61.4 kg
[~2017-11-21 21:38] MED LIST changes: +CARV10CR PO; -CARV12 PO
[2017-11-22] MEDS ORDERED: BACITRACIN 0.9 GM PACKET OINTMENT TP ONE (01:00)
[2017-11-22 01:44] VITALS: BP 125/73
== END 2017-11-22 01:50 | disposition home or self-care (01) ==
LOC: EMS 21:40
DX: S91.201A Unspecified open wound of right great toe with damage to nail, initial encounter (principal); I11.0 Hypertensive heart disease with heart failure; I50.9 Heart failure, unspecified; K21.9 Gastro-esophageal reflux disease without esophagitis; E05.90 Thyrotoxicosis, unspecified without thyrotoxic crisis or storm; G89.29 Other chronic pain; F12.90 Cannabis use, unspecified, uncomplicated; Z95.0 Presence of cardiac pacemaker; W20.8XXA Other cause of strike by thrown, projected or falling object, initial encounter; Y93.89 Activity, other specified; Y92.89 Other specified places as the place of occurrence of the external cause; Y99.8 Other external cause status
CPT/HCPCS: 99284

== ENCOUNTER 2017-11-28 04:43 | Inpatient (IN) | payer OTHER ==
[~2017-11-28] VITALS: Ht 170.2 cm; Wt 47.5 kg
[2017-11-28 05:13] LABS: BASOPHILS % (AUTO) 0.4 % (0.0-2.0); EOSINOPHILS % (AUTO) 0.5 % (1.0-6.0); HEMOGLOBIN 11.7 g/dL (12.0-16.0); LYMPHOCYTES # (AUTO) 4.3 K/uL (1.0-4.8); LYMPHOCYTES % (AUTO) 73.9 % (22.0-44.0); MEAN CORPUSCULAR HGB CONC 31.7 G/dL (31.0-37.0); MEAN CORPUSCULAR VOLUME 95 fL (80-100); MONOCYTES # (AUTO) 0.4 K/uL (0.1-1.0); MONOCYTES % (AUTO) 6.1 % (2.0-9.0); NEUTROPHILS # (AUTO) 1.1 K/uL (1.8-7.7); NEUTROPHILS % (AUTO) 19.1 % (40.0-70.0); PLATELET COUNT (AUTO) 131 K/uL (150-450); RED BLOOD CELL COUNT(AUTO) 3.92 MIL/uL (4.00-5.20); RED CELL DISTRIBUTION WIDTH 16.2 % (11.5-14.5)
[2017-11-28 05:23] LABS: ANION GAP 19 mmol/L (8-16); CALCIUM, TOTAL 6.3 mg/dL (8.8-10.5); CARBON DIOXIDE 17 mmol/L (22-29); CHLORIDE 109 mmol/L (98-107); CREATININE 1.08 mg/dL (0.60-1.30); GLOMERULAR FILTR. RATE CALC > 60 mL/min (>60); GLUCOSE,RANDOM 252 mg/dL (70-110); INR 1.4 (0.9-1.1); POTASSIUM 4.6 mmol/L (3.5-5.1); PROTHROMBIN TIME 14.4 SEC (9.4-11.6); SODIUM SERUM 145 mmol/L (136-145); UREA NITROGEN, BLOOD 10 mg/dL (7-18)
[2017-11-28 05:30] LABS: ALANINE AMINOTRANSFERASE 59 U/L (12-78); ALBUMIN 2.4 g/dL (3.4-5.0); ALKALINE PHOSPHATASE 113 U/L (46-116); ASPARTATE AMINOTRANSFERASE 194 U/L (15-37); BILIRUBIN,TOTAL 0.8 mg/dL (0.1-1.0); TOTAL PROTEIN, SERUM 6.1 g/dL (6.4-8.2)
[2017-11-28] MEDS ORDERED: IPRATROPIUM BROMIDE 0.5 MG/2.5 ML NEB SOLUTION NEB ONE (05:30)
[2017-11-28] MEDS ORDERED: ALBUTEROL SULFATE 2.5 MG/0.5 ML NEB SOLUTION NEB ONE (05:30)
[2017-11-28] MEDS ORDERED: CefTRIAXone SODIUM 1 GM in DEXTROSE 5%-WATER 10 ML IV ONE (05:30)
[2017-11-28 05:32] LABS: B-TYPE NATRIURETIC PEPTIDE 2100 pg/mL (0-100)
[2017-11-28 05:48] LABS: ABG BASE EXCESS -17.3 mmol/L (-2.0-3.0); ABG CARBOXYHEMOGLOBIN 1.5 % (0.0-1.5); ABG HCO3 12.1 mmol/L (22.0-26.0); ABG METHEMOGLOBIN 0.6 % (0.0-1.5); ABG OXYGEN CONTENT 15.8 mL/dL (15.0-23.0); ABG OXYGEN SATURATION 91.6 % (95.0-98.0); ABG OXYHEMOGLOBIN 89.7 % (94.0-100.0); ABG PCO2 35 mmHg (35-45); ABG TOTAL HEMOGLOBIN 12.5 G/dL (12.0-18.0); PO2, ARTERIAL BG 81.9 mmHg (79.0-87.0); SOURCE, BLOOD GAS ARTERIAL; TEMPERATURE, FAHRENHEIT, BG 98.4 FAHREN (96.0-98.6)
[2017-11-28 05:49] LABS: ABG PH 7.142 (7.35-7.450); O2 DEVICE,BLOOD GAS BIPAP (ROOM AIR); SITE, BLOOD GAS RT RADIAL
[2017-11-28] MEDS ORDERED: AZITHROMYCIN 500 MG/NS 250 ML IV ONE (06:15)
[2017-11-28] MEDS ORDERED: FUROSEMIDE 40 MG/4 ML VIAL IVP ONE (06:15)
[2017-11-28] MEDS ORDERED: MORPHINE SULFATE 2 MG/ML SYRINGE IVP ONE (06:45)
[2017-11-28] MEDS ORDERED: ONDANSETRON HCL 4 MG/2 ML VIAL IVP ONE (07:15)
[2017-11-28] MEDS ORDERED: PHENYLEPHRINE 200 MG/D5%-WATER 250 ML IV PRN (07:28)
[2017-11-28 07:42] LABS: LACTIC ACID 5.7 mmol/L (0.4-2.0)
[2017-11-28 07:55] LABS: APPEARANCE,URINE CLEAR (CLEAR); BILIRUBIN,URINE NEGATIVE (NEGATIVE); GLUCOSE, URINE (UA) NEGATIVE (NEGATIVE); KETONES,URINE NEGATIVE (NEGATIVE); LEUKOCYTE ESTERASE ,URINE NEGATIVE (NEGATIVE); NITRATE,URINE NEGATIVE (NEGATIVE); OCCULT BLOOD,URINE NEGATIVE (NEGATIVE); PROTEIN,URINE NEGATIVE (NEGATIVE); UROBILINOGEN,URINE 0.2 mg/dL (<=1.0)
[2017-11-28 08:06] LABS: INFLUENZA TYPE A NEGATIVE FOR TYPE A (NEGATIVE); INFLUENZA TYPE B NEGATIVE FOR TYPE B (NEGATIVE)
[2017-11-28 08:10] LABS: ABG A-A DIFF O2 421.4 mmHg (10-20.0); ABG BASE EXCESS -18.5 mmol/L (-2.0-3.0); ABG CARBOXYHEMOGLOBIN 1.5 % (0.0-1.5); ABG HCO3 11.5 mmol/L (22.0-26.0); ABG METHEMOGLOBIN 0.5 % (0.0-1.5); ABG OXYGEN SATURATION 99.7 % (95.0-98.0); ABG OXYHEMOGLOBIN 97.7 % (94.0-100.0); ABG PCO2 33 mmHg (35-45); ABG PH 7.127 (7.35-7.450); ABG TOTAL HEMOGLOBIN 11.9 G/dL (12.0-18.0); O2 DEVICE,BLOOD GAS VENTILATOR (ROOM AIR); PEEP,BG 5 cm H2O; PO2, ARTERIAL BG 259.2 mmHg (79.0-87.0); SITE, BLOOD GAS RT RADIAL; SOURCE, BLOOD GAS ARTERIAL; VT, ABG 450 ml
[2017-11-28 08:10] LABS: BACTERIA,URINE None Seen /HPF (None Seen); RBC,URINE None Seen /HPF (0-2); WBC,URINE None Seen /HPF (0-5)
[2017-11-28] MEDS ORDERED: PROPOFOL 1000 MG/ISO-OSM 100 ML IV PRN (08:36)
[2017-11-28] MEDS ORDERED: *CLINICAL-LEVOFLOXACIN IVPB DOSING CLINICAL ONE (11:45)
[2017-11-28 12:00] VITALS: BP 121/94
[2017-11-28] MEDS ORDERED: ETOMIDATE 2 MG/ML 10 ML VIAL IVP ONE (12:00)
[2017-11-28] MEDS ORDERED: SUCCINYLCHOLINE CHLORIDE 20 MG/ML 10 ML VIAL IVP ONE (12:00)
[2017-11-28] MEDS ORDERED: SODIUM CHLORIDE 0.9% 250 ML IV ONE ×2 (12:06→23:24)
[2017-11-28] MEDS: PIPERACILLIN/TAZO 3.375 GM/D5W 50 ML IV SCH ×3 (12:13→23:24)
[2017-11-28] MEDS: LEVOFLOXACIN 750 MG/D5% WATER 150 ML IV SCH (12:14)
[2017-11-28 12:48] LABS: CREATINE KINASE, TOTAL 148 U/L (26-192)
[2017-11-28] MEDS: PROPOFOL 1000 MG/ISO-OSM 100 ML IV PRN ×3 (13:16→20:44)
[2017-11-28 16:00] VITALS: BP 111/84
[2017-11-28 18:52] LABS: AMPHET/METH SCREEN,URINE NEGATIVE (NEGATIVE); BARBITURATE SCREEN, URINE NEGATIVE (NEGATIVE); BENZODIAZEPINES SCREEN,URINE NEGATIVE (NEGATIVE); CANNABINOID SCREEN,URINE POSITIVE (NEGATIVE); COCAINE SCREEN,URINE NEGATIVE (NEGATIVE); METHADONE SCREEN, URINE NEGATIVE (NEGATIVE); OPIATE SCREEN,URINE NEGATIVE (NEGATIVE)
[2017-11-28 18:59] LABS: PHENCYCLIDINE SCREEN,URINE NEGATIVE (NEGATIVE)
[2017-11-28 20:00] VITALS: BP 108/78
[2017-11-28 20:24] LABS: CREATINE KINASE MB 2.1 ng/mL (0-5); CREATINE KINASE, TOTAL 114 U/L (26-192)
[2017-11-29] VITALS: BP 118/92
[2017-11-29] MEDS ORDERED: 0.9% SODIUM CHLORIDE 10 ML SYRINGE IVP PRN (01:00)
[2017-11-29] MEDS: PROPOFOL 1000 MG/ISO-OSM 100 ML IV PRN ×5 (01:31→20:30)
[2017-11-29 04:00] VITALS: BP 99/76
[2017-11-29] MEDS: PIPERACILLIN/TAZO 3.375 GM/D5W 50 ML IV SCH ×3 (05:21→18:24)
[2017-11-29 05:22] LABS: BASOPHILS % (AUTO) 0.5 % (0.0-2.0); EOSINOPHILS % (AUTO) 0.5 % (1.0-6.0); HEMATOCRIT 35.3 % (36-46); HEMOGLOBIN 11.3 g/dL (12.0-16.0); LYMPHOCYTES # (AUTO) 1.9 K/uL (1.0-4.8); LYMPHOCYTES % (AUTO) 20.6 % (22.0-44.0); MEAN CORPUSCULAR HEMOGLOBIN 30.5 pg (26.0-34.0); MEAN CORPUSCULAR HGB CONC 32.1 G/dL (31.0-37.0); MEAN CORPUSCULAR VOLUME 95 fL (80-100); MONOCYTES # (AUTO) 0.7 K/uL (0.1-1.0); MONOCYTES % (AUTO) 7.2 % (2.0-9.0); NEUTROPHILS # (AUTO) 6.6 K/uL (1.8-7.7); NEUTROPHILS % (AUTO) 71.2 % (40.0-70.0); RED BLOOD CELL COUNT(AUTO) 3.71 MIL/uL (4.00-5.20); RED CELL DISTRIBUTION WIDTH 15.8 % (11.5-14.5)
[2017-11-29 06:40] LABS: ALANINE AMINOTRANSFERASE 43 U/L (12-78); ALKALINE PHOSPHATASE 82 U/L (46-116); ANION GAP 17 mmol/L (8-16); BILIRUBIN,TOTAL 0.7 mg/dL (0.1-1.0); CARBON DIOXIDE 18 mmol/L (22-29); CHLORIDE 110 mmol/L (98-107); CREATINE KINASE MB 1.4 ng/mL (0-5); CREATINE KINASE, TOTAL 101 U/L (26-192); CREATININE 1.51 mg/dL (0.60-1.30); GLOMERULAR FILTR. RATE CALC 42 mL/min (>60); GLUCOSE,RANDOM 121 mg/dL (70-110); PHOSPHORUS 5.9 mg/dL (2.5-4.9); SODIUM SERUM 145 mmol/L (136-145); THYROID STIMULATING HORMONE 3.21 uIU/mL (0.36-3.74); TOTAL PROTEIN, SERUM 5.2 g/dL (6.4-8.2); UREA NITROGEN, BLOOD 11 mg/dL (7-18)
[2017-11-29 07:10] LABS: ASPARTATE AMINOTRANSFERASE 104 U/L (15-37); B-TYPE NATRIURETIC PEPTIDE 2360 pg/mL (0-100)
[2017-11-29 07:39] LABS: CALCIUM, TOTAL 5.7 mg/dL (8.8-10.5)
[2017-11-29 07:40] LABS: PLATELET COUNT (AUTO) 99 K/uL (150-450)
[2017-11-29 08:00] VITALS: BP 116/87
[2017-11-29] MEDS: FUROSEMIDE 40 MG/4 ML VIAL IVP SCH ×2 (10:01→20:29)
[2017-11-29 12:00] VITALS: BP 140/96
[2017-11-29 12:38] LABS: ABG A-A DIFF O2 98.5 mmHg (10-20.0); ABG CARBOXYHEMOGLOBIN 1.1 % (0.0-1.5); ABG HCO3 20.8 mmol/L (22.0-26.0); ABG METHEMOGLOBIN 0.5 % (0.0-1.5); ABG OXYGEN CONTENT 16.5 mL/dL (15.0-23.0); ABG OXYGEN SATURATION 98.7 % (95.0-98.0); ABG OXYHEMOGLOBIN 97.1 % (94.0-100.0); ABG PCO2 23 mmHg (35-45); ABG PH 7.493 (7.35-7.450); ABG TOTAL HEMOGLOBIN 11.9 G/dL (12.0-18.0); O2 DEVICE,BLOOD GAS VENTILATOR (ROOM AIR); PO2, ARTERIAL BG 124.7 mmHg (79.0-87.0); SITE, BLOOD GAS RT RADIAL; SOURCE, BLOOD GAS ARTERIAL; TEMPERATURE, FAHRENHEIT, BG 97.6 FAHREN (96.0-98.6)
[2017-11-29 12:39] LABS: PEEP,BG 5 cm H2O; VT, ABG 450 ml
[2017-11-29] MEDS ORDERED: SODIUM CHLORIDE 0.9% 250 ML IV ONE ×2 (14:15→20:23)
[2017-11-29] MEDS: LEVOFLOXACIN 750 MG/D5% WATER 150 ML IV SCH (15:04)
[2017-11-29 16:00] VITALS: BP 136/87
[2017-11-29] MEDS ORDERED: SODIUM CHLORIDE 0.9% 2,000 ML IV ONE (18:39)
[2017-11-29 20:00] VITALS: BP 123/88
[2017-11-30] VITALS: BP 134/91
[2017-11-30] MEDS: PIPERACILLIN/TAZO 3.375 GM/D5W 50 ML IV SCH ×5 (00:49→23:43)
[2017-11-30] MEDS: PROPOFOL 1000 MG/ISO-OSM 100 ML IV PRN ×5 (00:50→22:31)
[2017-11-30 04:00] VITALS: BP 136/94
[2017-11-30 05:12] LABS: BASOPHILS % (AUTO) 0.3 % (0.0-2.0); EOSINOPHILS % (AUTO) 1.4 % (1.0-6.0); HEMATOCRIT 35.5 % (36-46); HEMOGLOBIN 11.8 g/dL (12.0-16.0); LYMPHOCYTES # (AUTO) 1.6 K/uL (1.0-4.8); LYMPHOCYTES % (AUTO) 23.1 % (22.0-44.0); MEAN CORPUSCULAR HEMOGLOBIN 30.2 pg (26.0-34.0); MEAN CORPUSCULAR HGB CONC 33.4 G/dL (31.0-37.0); MEAN CORPUSCULAR VOLUME 91 fL (80-100); MONOCYTES # (AUTO) 0.5 K/uL (0.1-1.0); MONOCYTES % (AUTO) 7.7 % (2.0-9.0); NEUTROPHILS # (AUTO) 4.7 K/uL (1.8-7.7); NEUTROPHILS % (AUTO) 67.5 % (40.0-70.0); PLATELET COUNT (AUTO) 90 K/uL (150-450); RED BLOOD CELL COUNT(AUTO) 3.91 MIL/uL (4.00-5.20); RED CELL DISTRIBUTION WIDTH 15.6 % (11.5-14.5)
[2017-11-30 07:17] LABS: ALBUMIN 2.1 g/dL (3.4-5.0); BILIRUBIN,TOTAL 0.8 mg/dL (0.1-1.0); CALCIUM, TOTAL 6.1 mg/dL (8.8-10.5); CREATININE 1.17 mg/dL (0.60-1.30); TOTAL PROTEIN, SERUM 5.6 g/dL (6.4-8.2)
[2017-11-30 07:21] LABS: MAGNESIUM 0.8 mg/dL (1.80-2.40); POTASSIUM 2.9 mmol/L (3.5-5.1)
[2017-11-30] MEDS ORDERED: POTASSIUM CHLORIDE 20 MEQ ER TABLET PO PRN (07:30)
[2017-11-30] MEDS ORDERED: POTASSIUM CHLORIDE 10% 40 MEQ/30 ML LIQUID UDCUP NG PRN (07:30)
[2017-11-30] MEDS: POTASSIUM CHL 10 MEQ/WATER 50 ML IV PRN ×4 (07:39→12:40)
[2017-11-30 08:00] VITALS: BP 139/95
[2017-11-30] MEDS ORDERED: MAGNESIUM SULFATE 4 GM/WATER 100 ML IV ONE (08:00)
[2017-11-30 08:06] LABS: ABG BASE EXCESS -3.2 mmol/L (-2.0-3.0); ABG CARBOXYHEMOGLOBIN 0.7 % (0.0-1.5); ABG HCO3 23.3 mmol/L (22.0-26.0); ABG METHEMOGLOBIN 0.1 % (0.0-1.5); ABG OXYGEN SATURATION 99.2 % (95.0-98.0); ABG OXYHEMOGLOBIN 98.4 % (94.0-100.0); ABG PCO2 22 mmHg (35-45); ABG PH 7.558 (7.35-7.450); ABG TOTAL HEMOGLOBIN 12.1 G/dL (12.0-18.0); PO2, ARTERIAL BG 147.1 mmHg (79.0-87.0); SOURCE, BLOOD GAS ARTERIAL; TEMPERATURE, FAHRENHEIT, BG 98.6 FAHREN (96.0-98.6)
[2017-11-30 08:09] LABS: O2 DEVICE,BLOOD GAS VENTILATOR (ROOM AIR); SITE, BLOOD GAS RT RADIAL; VT, ABG 450 ml
[2017-11-30 08:10] LABS: PEEP,BG 5 cm H2O
[2017-11-30] MEDS: FUROSEMIDE 20 MG/2 ML VIAL IVP SCH (10:38)
[2017-11-30 12:00] VITALS: BP 120/86
[2017-11-30] MEDS: LEVOFLOXACIN 750 MG/D5% WATER 150 ML IV SCH (14:35)
[2017-11-30 16:00] VITALS: BP 133/90
[2017-11-30 20:00] VITALS: BP 117/74
[2017-11-30 23:09] LABS: C.DIFF GDH ANTIGEN, Stool Negative (Negative)
[2017-11-30 23:10] LABS: C.DIFF TOXINS A&B, Stool Negative (Negative)
[2017-12-01] VITALS: BP 119/88
[2017-12-01] MEDS: PROPOFOL 1000 MG/ISO-OSM 100 ML IV PRN ×5 (02:34→21:51)
[2017-12-01 04:00] VITALS: BP 143/93
[2017-12-01 05:36] LABS: ALANINE AMINOTRANSFERASE 21 U/L (12-78); ALKALINE PHOSPHATASE 73 U/L (46-116); ANION GAP 16 mmol/L (8-16); ASPARTATE AMINOTRANSFERASE 30 U/L (15-37); BILIRUBIN,TOTAL 0.7 mg/dL (0.1-1.0); CALCIUM, TOTAL 6.3 mg/dL (8.8-10.5); CARBON DIOXIDE 21 mmol/L (22-29); CHLORIDE 106 mmol/L (98-107); CREATININE 0.97 mg/dL (0.60-1.30); GLOMERULAR FILTR. RATE CALC > 60 mL/min (>60); GLUCOSE,RANDOM 86 mg/dL (70-110); POTASSIUM 3.4 mmol/L (3.5-5.1); SODIUM SERUM 143 mmol/L (136-145); TOTAL PROTEIN, SERUM 5.8 g/dL (6.4-8.2); UREA NITROGEN, BLOOD 7 mg/dL (7-18)
[2017-12-01] MEDS: PIPERACILLIN/TAZO 3.375 GM/D5W 50 ML IV SCH ×3 (05:53→16:57)
[2017-12-01 06:00] LABS: BASOPHILS % (AUTO) 0.3 % (0.0-2.0); EOSINOPHILS % (AUTO) 2.9 % (1.0-6.0); HEMATOCRIT 36.1 % (36-46); LYMPHOCYTES # (AUTO) 1.6 K/uL (1.0-4.8); LYMPHOCYTES % (AUTO) 29.7 % (22.0-44.0); MEAN CORPUSCULAR HEMOGLOBIN 30.2 pg (26.0-34.0); MEAN CORPUSCULAR HGB CONC 33.2 G/dL (31.0-37.0); MEAN CORPUSCULAR VOLUME 91 fL (80-100); MONOCYTES # (AUTO) 0.5 K/uL (0.1-1.0); MONOCYTES % (AUTO) 9.2 % (2.0-9.0); NEUTROPHILS # (AUTO) 3.1 K/uL (1.8-7.7); NEUTROPHILS % (AUTO) 57.9 % (40.0-70.0); PLATELET COUNT (AUTO) 88 K/uL (150-450); RED BLOOD CELL COUNT(AUTO) 3.97 MIL/uL (4.00-5.20); RED CELL DISTRIBUTION WIDTH 16.1 % (11.5-14.5)
[2017-12-01 08:00] VITALS: BP 125/84
[2017-12-01] MEDS ORDERED: MAGNESIUM SULFATE 4 GM/WATER 100 ML IV PRN (08:00)
[2017-12-01] MEDS ORDERED: MAGNESIUM GLUCONATE 1 GM/5 ML LIQUID 22 ML UDCUP GT PRN (08:00)
[2017-12-01] MEDS: MAGNESIUM OXIDE 400 MG TABLET PO PRN ×3 (08:59→16:57)
[2017-12-01] MEDS: FUROSEMIDE 20 MG/2 ML VIAL IVP SCH (08:59)
[2017-12-01] MEDS: POTASSIUM CHLORIDE 10% 40 MEQ/30 ML LIQUID UDCUP NG PRN (08:59)
[2017-12-01 09:11] LABS: B-TYPE NATRIURETIC PEPTIDE 981 pg/mL (0-100)
[2017-12-01] MEDS: LEVOFLOXACIN 750 MG/D5% WATER 150 ML IV SCH (11:50)
[2017-12-01 12:00] VITALS: BP 120/76
[2017-12-01 13:43] LABS: ABG A-A DIFF O2 77.1 mmHg (10-20.0); ABG BASE EXCESS 0.3 mmol/L (-2.0-3.0); ABG CARBOXYHEMOGLOBIN 0.9 % (0.0-1.5); ABG HCO3 25.2 mmol/L (22.0-26.0); ABG METHEMOGLOBIN 0.3 % (0.0-1.5); ABG OXYGEN CONTENT 17.3 mL/dL (15.0-23.0); ABG OXYGEN SATURATION 98.2 % (95.0-98.0); ABG PCO2 33 mmHg (35-45); ABG PH 7.476 (7.35-7.450); ABG TOTAL HEMOGLOBIN 12.5 G/dL (12.0-18.0); PO2, ARTERIAL BG 134.4 mmHg (79.0-87.0); SOURCE, BLOOD GAS ARTERIAL; TEMPERATURE, FAHRENHEIT, BG 97.9 FAHREN (96.0-98.6)
[2017-12-01 13:44] LABS: O2 DEVICE,BLOOD GAS VENTILATOR (ROOM AIR); PEEP,BG 5 cm H2O; SITE, BLOOD GAS LFT BRACHIAL; VT, ABG 450 ml
[2017-12-01] MEDS ORDERED: SODIUM CHLORIDE 0.9% 250 ML IV ONE (14:16)
[2017-12-01 16:00] VITALS: BP 102/72
[2017-12-01 20:00] VITALS: BP 106/64
[2017-12-02] VITALS: BP 106/65
[2017-12-02] MEDS: PIPERACILLIN/TAZO 3.375 GM/D5W 50 ML IV SCH ×5 (00:32→23:31)
[2017-12-02] MEDS: PROPOFOL 1000 MG/ISO-OSM 100 ML IV PRN ×2 (03:57→08:48)
[2017-12-02 04:00] VITALS: BP 101/71
[2017-12-02 05:26] LABS: BASOPHILS % (AUTO) 0.5 % (0.0-2.0); EOSINOPHILS % (AUTO) 3.6 % (1.0-6.0); HEMATOCRIT 35.4 % (36-46); HEMOGLOBIN 11.7 g/dL (12.0-16.0); LYMPHOCYTES # (AUTO) 1.6 K/uL (1.0-4.8); LYMPHOCYTES % (AUTO) 36.3 % (22.0-44.0); MEAN CORPUSCULAR HEMOGLOBIN 29.7 pg (26.0-34.0); MEAN CORPUSCULAR VOLUME 90 fL (80-100); MONOCYTES # (AUTO) 0.5 K/uL (0.1-1.0); MONOCYTES % (AUTO) 12.2 % (2.0-9.0); NEUTROPHILS # (AUTO) 2.1 K/uL (1.8-7.7); NEUTROPHILS % (AUTO) 47.4 % (40.0-70.0); PLATELET COUNT (AUTO) 89 K/uL (150-450); RED BLOOD CELL COUNT(AUTO) 3.92 MIL/uL (4.00-5.20); RED CELL DISTRIBUTION WIDTH 16.1 % (11.5-14.5)
[2017-12-02 05:41] LABS: ALANINE AMINOTRANSFERASE 19 U/L (12-78); ALBUMIN 1.9 g/dL (3.4-5.0); ALKALINE PHOSPHATASE 69 U/L (46-116); ANION GAP 12 mmol/L (8-16); ASPARTATE AMINOTRANSFERASE 26 U/L (15-37); BILIRUBIN,TOTAL 0.6 mg/dL (0.1-1.0); CALCIUM, TOTAL 6.9 mg/dL (8.8-10.5); CARBON DIOXIDE 23 mmol/L (22-29); CHLORIDE 106 mmol/L (98-107); CREATININE 0.98 mg/dL (0.60-1.30); GLOMERULAR FILTR. RATE CALC > 60 mL/min (>60); GLUCOSE,RANDOM 115 mg/dL (70-110); POTASSIUM 3.3 mmol/L (3.5-5.1); SODIUM SERUM 141 mmol/L (136-145); TOTAL PROTEIN, SERUM 5.8 g/dL (6.4-8.2); UREA NITROGEN, BLOOD 7 mg/dL (7-18)
[2017-12-02] MEDS: POTASSIUM CHLORIDE 10% 40 MEQ/30 ML LIQUID UDCUP NG PRN (06:20)
[2017-12-02] MEDS ORDERED: SODIUM CHLORIDE 0.9% 250 ML IV ONE (07:29)
[2017-12-02 08:00] VITALS: BP 119/77
[2017-12-02] MEDS: FUROSEMIDE 20 MG/2 ML VIAL IVP SCH (08:45)
[2017-12-02 12:00] VITALS: BP 131/90
[2017-12-02] MEDS: LEVOFLOXACIN 750 MG/D5% WATER 150 ML IV SCH (12:06)
[2017-12-02 12:20] LABS: ABG A-A DIFF O2 64.5 mmHg (10-20.0); ABG BASE EXCESS -1.5 mmol/L (-2.0-3.0); ABG CARBOXYHEMOGLOBIN 0.7 % (0.0-1.5); ABG HCO3 23.8 mmol/L (22.0-26.0); ABG METHEMOGLOBIN 0.1 % (0.0-1.5); ABG OXYGEN CONTENT 17.9 mL/dL (15.0-23.0); ABG OXYHEMOGLOBIN 98.2 % (94.0-100.0); ABG PCO2 33 mmHg (35-45); ABG PH 7.449 (7.35-7.450); ABG TOTAL HEMOGLOBIN 12.8 G/dL (12.0-18.0); PO2, ARTERIAL BG 146.5 mmHg (79.0-87.0); SOURCE, BLOOD GAS ARTERIAL; TEMPERATURE, FAHRENHEIT, BG 98.6 FAHREN (96.0-98.6)
[2017-12-02 12:21] LABS: CPAP, BG 0 cm H2O; O2 DEVICE,BLOOD GAS VENTILATOR (ROOM AIR); PEEP,BG 0 cm H2O; PRESSURE SUPPORT, BG 8 cm H2O; SITE, BLOOD GAS RT RADIAL; SPONTANEOUS VT, BG 590 ml; VENT MODE, BG SPONTANEOUS (ROOM AIR)
[2017-12-02 16:00] VITALS: BP 108/70
[2017-12-02 20:00] VITALS: BP 110/69
[2017-12-02] MEDS: ACETAMINOPHEN 325 MG TABLET PO PRN (21:36)
[2017-12-03] VITALS (7 sets, daily range): BP systolic 102–136; BP diastolic 61–76
[2017-12-03 05:33] LABS: BASOPHILS % (AUTO) 0.2 % (0.0-2.0); EOSINOPHILS % (AUTO) 4.2 % (1.0-6.0); HEMATOCRIT 36.3 % (36-46); HEMOGLOBIN 11.8 g/dL (12.0-16.0); LYMPHOCYTES # (AUTO) 1.4 K/uL (1.0-4.8); LYMPHOCYTES % (AUTO) 30.5 % (22.0-44.0); MEAN CORPUSCULAR HEMOGLOBIN 29.6 pg (26.0-34.0); MEAN CORPUSCULAR HGB CONC 32.5 G/dL (31.0-37.0); MEAN CORPUSCULAR VOLUME 91 fL (80-100); MONOCYTES # (AUTO) 0.9 K/uL (0.1-1.0); MONOCYTES % (AUTO) 20.3 % (2.0-9.0); NEUTROPHILS # (AUTO) 2.1 K/uL (1.8-7.7); NEUTROPHILS % (AUTO) 44.8 % (40.0-70.0); PLATELET COUNT (AUTO) 82 K/uL (150-450); RED BLOOD CELL COUNT(AUTO) 3.99 MIL/uL (4.00-5.20); RED CELL DISTRIBUTION WIDTH 15.8 % (11.5-14.5)
[2017-12-03 05:45] LABS: ALANINE AMINOTRANSFERASE 16 U/L (12-78); ALBUMIN 2.1 g/dL (3.4-5.0); ALKALINE PHOSPHATASE 63 U/L (46-116); ANION GAP 10 mmol/L (8-16); ASPARTATE AMINOTRANSFERASE 27 U/L (15-37); BILIRUBIN,TOTAL 0.9 mg/dL (0.1-1.0); CALCIUM, TOTAL 7.7 mg/dL (8.8-10.5); CARBON DIOXIDE 24 mmol/L (22-29); CHLORIDE 107 mmol/L (98-107); CREATININE 0.79 mg/dL (0.60-1.30); GLOMERULAR FILTR. RATE CALC > 60 mL/min (>60); GLUCOSE,RANDOM 88 mg/dL (70-110); POTASSIUM 3.5 mmol/L (3.5-5.1); SODIUM SERUM 141 mmol/L (136-145); TOTAL PROTEIN, SERUM 6.2 g/dL (6.4-8.2); UREA NITROGEN, BLOOD 4 mg/dL (7-18)
[2017-12-03] MEDS: PIPERACILLIN/TAZO 3.375 GM/D5W 50 ML IV SCH ×4 (06:06→23:44)
[2017-12-03] MEDS: FUROSEMIDE 20 MG/2 ML VIAL IVP SCH (09:17)
[2017-12-03] MEDS: MAGNESIUM SULFATE 2 GM in DEXTROSE 5%-WATER 50 ML IV PRN (09:20)
[2017-12-03] MEDS: LEVOFLOXACIN 750 MG/D5% WATER 150 ML IV SCH (12:13)
[2017-12-03 13:37] LABS: C.DIFF TOXINS A&B, Stool Negative (Negative)
[2017-12-03 13:41] LABS: C.DIFF GDH ANTIGEN, Stool Positive (Negative)
[2017-12-03] MEDS: ACETAMINOPHEN 325 MG TABLET PO PRN (15:49)
[2017-12-03] MEDS ORDERED: SODIUM CHLORIDE 0.9% 100 ML ONE (17:09)
[2017-12-04 04:39] VITALS: BP 114/70
[2017-12-04] MEDS: PIPERACILLIN/TAZO 3.375 GM/D5W 50 ML IV SCH ×4 (05:52→23:21)
[2017-12-04 07:37] VITALS: BP 109/63
[2017-12-04] MEDS: ACETAMINOPHEN 325 MG TABLET PO PRN (07:50)
[2017-12-04] MEDS: FUROSEMIDE 20 MG/2 ML VIAL IVP SCH (07:51)
[2017-12-04] MEDS ORDERED: SODIUM CHLORIDE 0.9% 250 ML IV ONE (08:35)
[2017-12-04] MEDS: MAGNESIUM SULFATE 2 GM in DEXTROSE 5%-WATER 50 ML IV PRN (08:38)
[2017-12-04 11:26] VITALS: BP 102/66
[2017-12-04] MEDS: LEVOFLOXACIN 750 MG/D5% WATER 150 ML IV SCH (12:58)
[2017-12-04 15:50] VITALS: BP 121/69
[2017-12-04 19:52] VITALS: BP 136/71
[2017-12-04 23:34] VITALS: BP 113/73
[2017-12-05 05:10] VITALS: BP 107/64
[2017-12-05] MEDS: PIPERACILLIN/TAZO 3.375 GM/D5W 50 ML IV SCH ×3 (05:30→19:05)
[2017-12-05 07:21] VITALS: BP 125/65
[2017-12-05 07:48] LABS: BASOPHILS % (AUTO) 0.6 % (0.0-2.0); EOSINOPHILS % (AUTO) 2.6 % (1.0-6.0); HEMOGLOBIN 11.9 g/dL (12.0-16.0); LYMPHOCYTES # (AUTO) 1.5 K/uL (1.0-4.8); LYMPHOCYTES % (AUTO) 29.9 % (22.0-44.0); MEAN CORPUSCULAR HEMOGLOBIN 29.8 pg (26.0-34.0); MEAN CORPUSCULAR HGB CONC 33.1 G/dL (31.0-37.0); MEAN CORPUSCULAR VOLUME 90 fL (80-100); MONOCYTES % (AUTO) 20.5 % (2.0-9.0); NEUTROPHILS # (AUTO) 2.4 K/uL (1.8-7.7); NEUTROPHILS % (AUTO) 46.4 % (40.0-70.0); PLATELET COUNT (AUTO) 97 K/uL (150-450); RED BLOOD CELL COUNT(AUTO) 3.99 MIL/uL (4.00-5.20); RED CELL DISTRIBUTION WIDTH 15.3 % (11.5-14.5)
[2017-12-05] MEDS: FUROSEMIDE 20 MG/2 ML VIAL IVP SCH (08:02)
[2017-12-05 08:03] LABS: ANION GAP 10 mmol/L (8-16); CALCIUM, TOTAL 8.2 mg/dL (8.8-10.5); CARBON DIOXIDE 25 mmol/L (22-29); CHLORIDE 104 mmol/L (98-107); CREATININE 0.81 mg/dL (0.60-1.30); GLOMERULAR FILTR. RATE CALC > 60 mL/min (>60); GLUCOSE,RANDOM 96 mg/dL (70-110); POTASSIUM 3.2 mmol/L (3.5-5.1); SODIUM SERUM 139 mmol/L (136-145); UREA NITROGEN, BLOOD 7 mg/dL (7-18)
[2017-12-05] MEDS: CARVEDILOL 3.125 MG TABLET PO SCH ×2 (09:34→21:00)
[2017-12-05] MEDS: VALSARTAN 40 MG TABLET PO SCH ×2 (11:30→21:00)
[2017-12-05 11:45] VITALS: BP 93/56
[2017-12-05] MEDS: ACETAMINOPHEN 325 MG TABLET PO PRN (13:18)
[2017-12-05] MEDS: LEVOFLOXACIN 750 MG/D5% WATER 150 ML IV SCH (13:19)
[2017-12-05 15:17] VITALS: BP 103/53
[2017-12-05 19:24] VITALS: BP 102/70
[2017-12-06] MEDS: PIPERACILLIN/TAZO 3.375 GM/D5W 50 ML IV SCH ×3 (00:13→12:09)
[2017-12-06 00:14] VITALS: BP 97/59
[2017-12-06 05:44] VITALS: BP 97/59
[2017-12-06 06:48] LABS: BASOPHILS % (AUTO) 0.6 % (0.0-2.0); EOSINOPHILS % (AUTO) 2.8 % (1.0-6.0); HEMATOCRIT 36.8 % (36-46); LYMPHOCYTES # (AUTO) 1.8 K/uL (1.0-4.8); LYMPHOCYTES % (AUTO) 38.8 % (22.0-44.0); MEAN CORPUSCULAR HEMOGLOBIN 29.7 pg (26.0-34.0); MEAN CORPUSCULAR HGB CONC 32.7 G/dL (31.0-37.0); MEAN CORPUSCULAR VOLUME 91 fL (80-100); MONOCYTES % (AUTO) 21.1 % (2.0-9.0); NEUTROPHILS # (AUTO) 1.7 K/uL (1.8-7.7); NEUTROPHILS % (AUTO) 36.7 % (40.0-70.0); PLATELET COUNT (AUTO) 105 K/uL (150-450); RED BLOOD CELL COUNT(AUTO) 4.06 MIL/uL (4.00-5.20); RED CELL DISTRIBUTION WIDTH 15.7 % (11.5-14.5)
[2017-12-06 07:28] LABS: ALANINE AMINOTRANSFERASE 12 U/L (12-78); ALKALINE PHOSPHATASE 56 U/L (46-116); ANION GAP 11 mmol/L (8-16); ASPARTATE AMINOTRANSFERASE 22 U/L (15-37); BILIRUBIN,TOTAL 0.8 mg/dL (0.1-1.0); CARBON DIOXIDE 26 mmol/L (22-29); CHLORIDE 102 mmol/L (98-107); GLOMERULAR FILTR. RATE CALC > 60 mL/min (>60); GLUCOSE,RANDOM 91 mg/dL (70-110); POTASSIUM 3.4 mmol/L (3.5-5.1); SODIUM SERUM 139 mmol/L (136-145); TOTAL PROTEIN, SERUM 6.6 g/dL (6.4-8.2); UREA NITROGEN, BLOOD 12 mg/dL (7-18)
[2017-12-06 07:54] VITALS: BP 118/63
[2017-12-06] MEDS: FUROSEMIDE 20 MG/2 ML VIAL IVP SCH (09:00)
[2017-12-06] MEDS: CARVEDILOL 3.125 MG TABLET PO SCH (09:00)
[2017-12-06] MEDS ORDERED: VALSARTAN 40 MG TABLET PO SCH (09:00)
[2017-12-06] MEDS: POTASSIUM CHLORIDE 10% 40 MEQ/30 ML LIQUID UDCUP NG PRN (09:18)
[2017-12-06] MEDS ORDERED: SODIUM CHLORIDE 0.9% 250 ML IV ONE (11:31)
[2017-12-06 12:08] VITALS: BP 91/51
[2017-12-06] MEDS: LEVOFLOXACIN 750 MG/D5% WATER 150 ML IV SCH (13:59)
[2017-12-06 15:42] VITALS: BP 94/68
== END 2017-12-06 17:17 | DRG 870 ==
LOC: EMS 04:44 → ICU 07:15 → 5S 12-03 15:25
PROVIDERS: ADMIT Family Medicine; ATTEND Family Medicine
PROC: 5A1955Z Respiratory Ventilation, Greater than 96 Consecutive Hours (ICD-10-PCS; principal; 2017-11-28)
PROC: 0BH17EZ Insertion of Endotracheal Airway into Trachea, Via Natural or Artificial Opening (ICD-10-PCS; 2017-11-28)
PROC: 5A09357 Assistance with Respiratory Ventilation, Less than 24 Consecutive Hours, Continuous Positive Airway Pressure (ICD-10-PCS; 2017-11-28)
DX: A41.9 Sepsis, unspecified organism (principal); I21.4 Non-ST elevation (NSTEMI) myocardial infarction; J96.01 Acute respiratory failure with hypoxia; N17.0 Acute kidney failure with tubular necrosis; E43 Unspecified severe protein-calorie malnutrition; R65.21 Severe sepsis with septic shock; R57.0 Cardiogenic shock; J18.9 Pneumonia, unspecified organism; E87.2 Acidosis; K86.1 Other chronic pancreatitis; I50.23 Acute on chronic systolic (congestive) heart failure; I47.2 Ventricular tachycardia; I42.9 Cardiomyopathy, unspecified; Z68.1 Body mass index [BMI] 19.9 or less, adult; B19.20 Unspecified viral hepatitis C without hepatic coma; E11.9 Type 2 diabetes mellitus without complications; E87.6 Hypokalemia; G89.4 Chronic pain syndrome; I11.0 Hypertensive heart disease with heart failure; M19.90 Unspecified osteoarthritis, unspecified site; E05.90 Thyrotoxicosis, unspecified without thyrotoxic crisis or storm; F12.90 Cannabis use, unspecified, uncomplicated; K70.30 Alcoholic cirrhosis of liver without ascites; I25.10 Atherosclerotic heart disease of native coronary artery without angina pectoris; E03.9 Hypothyroidism, unspecified; F10.21 Alcohol dependence, in remission; I34.0 Nonrheumatic mitral (valve) insufficiency; I07.1 Rheumatic tricuspid insufficiency; K21.9 Gastro-esophageal reflux disease without esophagitis; Z82.49 Family history of ischemic heart disease and other diseases of the circulatory system; Z91.14 Patient's other noncompliance with medication regimen; Z95.810 Presence of automatic (implantable) cardiac defibrillator; Z87.01 Personal history of pneumonia (recurrent)
CPT/HCPCS: 31500; 51702; 71250; 80307; 82805; 83036; 83605; 83735; 84100; 84132; 84145; 84443; 87040; 87070; 87081; 87205; 87324; 87449; 87804; 92526; 92610; 93005; 93306; 93970; 94002; 94003; 94640; 94660; 96365; 96366; 96367; 96375; 97110; 97116; 97162; 97166; 97530; 97535; 99291; J0330; J0456; J0696; J1250; J1940; J1956; J2270; J2370; J2405; J2543; J2704; J3475; J3480; J3490; J7030; J7050; J7060

== ENCOUNTER 2018-01-24 03:51 | Inpatient (IN) | payer OTHER ==
[2018-01-24] VITALS (8 sets, daily range): BP systolic 96–121; BP diastolic 60–81
[~2018-01-24] VITALS: Ht 170.2 cm; Wt 52.0 kg
[~2018-01-24 03:51] MED LIST changes: -LOSA25TA21 PO
[2018-01-24 05:02] LABS: APPEARANCE,URINE CLOUDY (CLEAR); BILIRUBIN,URINE NEGATIVE (NEGATIVE); GLUCOSE, URINE (UA) NEGATIVE (NEGATIVE); KETONES,URINE NEGATIVE (NEGATIVE); LEUKOCYTE ESTERASE ,URINE SMALL (NEGATIVE); NITRATE,URINE NEGATIVE (NEGATIVE); OCCULT BLOOD,URINE NEGATIVE (NEGATIVE); PROTEIN,URINE NEGATIVE (NEGATIVE); UROBILINOGEN,URINE 0.2 mg/dL (<=1.0)
[2018-01-24 05:09] LABS: BASOPHILS % (AUTO) 0.5 % (0.0-2.0); EOSINOPHILS % (AUTO) 2.6 % (1.0-6.0); HEMATOCRIT 35.1 % (36-46); HEMOGLOBIN 11.4 g/dL (12.0-16.0); LYMPHOCYTES # (AUTO) 2.2 K/uL (1.0-4.8); LYMPHOCYTES % (AUTO) 41.7 % (22.0-44.0); MEAN CORPUSCULAR HEMOGLOBIN 28.3 pg (26.0-34.0); MEAN CORPUSCULAR HGB CONC 32.6 G/dL (31.0-37.0); MEAN CORPUSCULAR VOLUME 87 fL (80-100); MONOCYTES # (AUTO) 0.5 K/uL (0.1-1.0); MONOCYTES % (AUTO) 9.8 % (2.0-9.0); NEUTROPHILS # (AUTO) 2.4 K/uL (1.8-7.7); NEUTROPHILS % (AUTO) 45.4 % (40.0-70.0); PLATELET COUNT (AUTO) 233 K/uL (150-450); RED BLOOD CELL COUNT(AUTO) 4.04 MIL/uL (4.00-5.20); RED CELL DISTRIBUTION WIDTH 15.4 % (11.5-14.5)
[2018-01-24 05:15] LABS: ANION GAP 8 mmol/L (8-16); CALCIUM, TOTAL 7.3 mg/dL (8.8-10.5); CARBON DIOXIDE 26 mmol/L (22-29); CHLORIDE 110 mmol/L (98-107); CREATININE 0.77 mg/dL (0.60-1.30); GLOMERULAR FILTR. RATE CALC > 60 mL/min (>60); GLUCOSE,RANDOM 103 mg/dL (70-110); POTASSIUM 4.1 mmol/L (3.5-5.1); SODIUM SERUM 144 mmol/L (136-145); UREA NITROGEN, BLOOD 11 mg/dL (7-18)
[2018-01-24 05:16] LABS: BACTERIA,URINE Rare /HPF (None Seen); RBC,URINE 0-2 /HPF (0-2); SQUAMOUS EPITHELIAL CELL,UR Few /LPF (None Seen)
[2018-01-24 05:19] LABS: INR 1.2 (0.9-1.1); PROTHROMBIN TIME 12.6 SEC (9.4-11.6)
[2018-01-24 05:22] LABS: ALANINE AMINOTRANSFERASE 40 U/L (12-78); ALBUMIN 2.6 g/dL (3.4-5.0); ALKALINE PHOSPHATASE 126 U/L (46-116); ASPARTATE AMINOTRANSFERASE 42 U/L (15-37); BILIRUBIN,TOTAL 0.5 mg/dL (0.1-1.0); CREATINE KINASE, TOTAL 52 U/L (26-192); TOTAL PROTEIN, SERUM 7.1 g/dL (6.4-8.2)
[2018-01-24 05:33] LABS: B-TYPE NATRIURETIC PEPTIDE 1380 pg/mL (0-100)
[2018-01-24] MEDS ORDERED: FUROSEMIDE 40 MG/4 ML VIAL IVP ONE (06:15)
[2018-01-24] MEDS ORDERED: NITROGLYCERIN 2% (1 GM=INCH) PACKET TP ONE (06:15)
[2018-01-24] MEDS ORDERED: MORPHINE SULFATE 2 MG/ML SYRINGE IM PRN (08:30)
[2018-01-24] MEDS ORDERED: FUROSEMIDE 40 MG/4 ML VIAL IVP SCH ×2 (09:00→21:00)
[2018-01-24] MEDS ORDERED: MORPHINE SULFATE 4 MG/ML SYRINGE IM PRN (09:27)
[2018-01-24] MEDS ORDERED: MORPHINE SULFATE 4 MG/ML SYRINGE IVP PRN (09:45)
[2018-01-24] MEDS ORDERED: POTASSIUM CHL 10 MEQ/WATER 50 ML IV PRN ×2 (10:30)
[2018-01-24] MEDS ORDERED: POTASSIUM CHLORIDE 10% 40 MEQ/30 ML LIQUID UDCUP PO PRN ×2 (10:30)
[2018-01-24] MEDS ORDERED: POTASSIUM CHLORIDE 20 MEQ ER TABLET PO PRN ×2 (10:30)
[2018-01-24] MEDS: ASPIRIN 81 MG EC TABLET PO SCH (11:08)
[2018-01-24] MEDS: ATORVASTATIN CALCIUM 40 MG TABLET PO SCH (11:08)
[2018-01-24] MEDS ORDERED: BISACODYL 10 MG RECTAL RECTAL SUPPOSITORY PR PRN (12:30)
[2018-01-24] MEDS ORDERED: ZOLPIDEM TARTRATE 5 MG TABLET PO PRN (12:30)
[2018-01-24] MEDS ORDERED: MAGNESIUM HYDROXIDE SUSPENSION 30 ML UDCUP PO PRN (12:30)
[2018-01-24] MEDS ORDERED: ONDANSETRON HCL 4 MG/2 ML VIAL IVP PRN (12:30)
[2018-01-24] MEDS: HEPARIN SODIUM,PORCINE 5,000 UNITS/ML VIAL SQ SCH (15:42)
[2018-01-24] MEDS: MORPHINE SULFATE 4 MG/ML SYRINGE IVP PRN ×2 (16:13→22:18)
[2018-01-24] MEDS: MIRTAZAPINE 15 MG TABLET PO SCH (20:40)
[2018-01-24] MEDS: FUROSEMIDE 40 MG/4 ML VIAL IVP SCH (20:40)
[2018-01-24] MEDS: DOCUSATE SODIUM 100 MG CAPSULE PO SCH (20:42)
[2018-01-24] MEDS ORDERED: MIRTAZAPINE 15 MG TABLET PO SCH (21:00)
[2018-01-25] VITALS (7 sets, daily range): BP systolic 91–126; BP diastolic 62–84
[2018-01-25] MEDS: HEPARIN SODIUM,PORCINE 5,000 UNITS/ML VIAL SQ SCH ×3 (00:31→16:00)
[2018-01-25] MEDS: MORPHINE SULFATE 4 MG/ML SYRINGE IVP PRN ×2 (04:41→11:00)
[2018-01-25 05:22] LABS: BASOPHILS % (AUTO) 0.3 % (0.0-2.0); EOSINOPHILS % (AUTO) 3.4 % (1.0-6.0); HEMATOCRIT 30.8 % (36-46); HEMOGLOBIN 10.1 g/dL (12.0-16.0); LYMPHOCYTES # (AUTO) 3.3 K/uL (1.0-4.8); LYMPHOCYTES % (AUTO) 55.1 % (22.0-44.0); MEAN CORPUSCULAR HEMOGLOBIN 28.6 pg (26.0-34.0); MEAN CORPUSCULAR HGB CONC 32.8 G/dL (31.0-37.0); MEAN CORPUSCULAR VOLUME 87 fL (80-100); MONOCYTES # (AUTO) 0.9 K/uL (0.1-1.0); MONOCYTES % (AUTO) 15.6 % (2.0-9.0); NEUTROPHILS # (AUTO) 1.5 K/uL (1.8-7.7); NEUTROPHILS % (AUTO) 25.6 % (40.0-70.0); PLATELET COUNT (AUTO) 197 K/uL (150-450); RED BLOOD CELL COUNT(AUTO) 3.53 MIL/uL (4.00-5.20); RED CELL DISTRIBUTION WIDTH 15.3 % (11.5-14.5)
[2018-01-25 05:33] LABS: ALANINE AMINOTRANSFERASE 30 U/L (12-78); ALBUMIN 2.2 g/dL (3.4-5.0); ALKALINE PHOSPHATASE 104 U/L (46-116); ANION GAP 5 mmol/L (8-16); ASPARTATE AMINOTRANSFERASE 30 U/L (15-37); BILIRUBIN,TOTAL 0.4 mg/dL (0.1-1.0); CALCIUM, TOTAL 7.4 mg/dL (8.8-10.5); CARBON DIOXIDE 31 mmol/L (22-29); CHLORIDE 107 mmol/L (98-107); CREATININE 0.84 mg/dL (0.60-1.30); GLOMERULAR FILTR. RATE CALC > 60 mL/min (>60); GLUCOSE,RANDOM 99 mg/dL (70-110); POTASSIUM 3.8 mmol/L (3.5-5.1); SODIUM SERUM 143 mmol/L (136-145); TOTAL PROTEIN, SERUM 6.1 g/dL (6.4-8.2); UREA NITROGEN, BLOOD 8 mg/dL (7-18)
[2018-01-25] MEDS: LEVOTHYROXINE SODIUM 50 MCG TABLET PO SCH (05:43)
[2018-01-25] MEDS ORDERED: LEVOTHYROXINE SODIUM 50 MCG TABLET PO SCH (06:30)
[2018-01-25] MEDS: CHOLECALCIFEROL (VIT D3) 1,000 UNITS TABLET PO SCH (08:52)
[2018-01-25] MEDS: ATORVASTATIN CALCIUM 40 MG TABLET PO SCH (08:52)
[2018-01-25] MEDS: CARVEDILOL PHOSPHATE 10 MG CR CAPSULE PO SCH (08:53)
[2018-01-25] MEDS: POTASSIUM CHLORIDE 8 MEQ ER TABLET PO SCH (08:53)
[2018-01-25] MEDS: OMEPRAZOLE 20 MG CAPSULE PO SCH (08:53)
[2018-01-25] MEDS: ESCITALOPRAM OXALATE 20 MG TABLET PO SCH (08:53)
[2018-01-25] MEDS: FOLIC ACID 1 MG TABLET PO SCH (08:53)
[2018-01-25] MEDS: DOCUSATE SODIUM 100 MG CAPSULE PO SCH ×2 (08:53→20:36)
[2018-01-25] MEDS: ASPIRIN 81 MG EC TABLET PO SCH (08:54)
[2018-01-25] MEDS: HYDROCODONE/ACETAMINOPHEN 5-325 MG TABLET PO PRN ×3 (08:55→20:37)
[2018-01-25] MEDS: FUROSEMIDE 40 MG/4 ML VIAL IVP SCH ×2 (08:55→20:36)
[2018-01-25] MEDS ORDERED: ESCITALOPRAM OXALATE 20 MG TABLET PO SCH (09:00)
[2018-01-25] MEDS ORDERED: OMEPRAZOLE 20 MG CAPSULE PO SCH (09:00)
[2018-01-25] MEDS ORDERED: CHOLECALCIFEROL (VIT D3) 1,000 UNITS TABLET PO SCH (09:00)
[2018-01-25] MEDS ORDERED: PANTOPRAZOLE SODIUM 40 MG DR TABLET PO SCH (09:00)
[2018-01-25] MEDS ORDERED: FOLIC ACID 1 MG TABLET PO SCH (09:00)
[2018-01-25] MEDS ORDERED: CARVEDILOL PHOSPHATE 10 MG CR CAPSULE PO SCH (09:00)
[2018-01-25] MEDS ORDERED: MAGNESIUM SULFATE 2 GM/WATER 50 ML IV ONE (10:00)
[2018-01-25] MEDS: LISINOPRIL 5 MG TABLET PO SCH (11:15)
[2018-01-25] MEDS ORDERED: SODIUM CHLORIDE 0.9% 250 ML IV ONE (11:22)
[2018-01-25] MEDS: MIRTAZAPINE 15 MG TABLET PO SCH (20:36)
[2018-01-25] MEDS: ACETAMINOPHEN 325 MG TABLET PO PRN (23:59)
[2018-01-26] VITALS (8 sets, daily range): BP systolic 88–99; BP diastolic 55–69
[2018-01-26] MEDS: HYDROCODONE/ACETAMINOPHEN 5-325 MG TABLET PO PRN ×4 (04:49→20:32)
[2018-01-26 05:44] LABS: BASOPHILS % (AUTO) 0.4 % (0.0-2.0); EOSINOPHILS % (AUTO) 5.8 % (1.0-6.0); HEMATOCRIT 33.2 % (36-46); HEMOGLOBIN 11.1 g/dL (12.0-16.0); LYMPHOCYTES # (AUTO) 2.1 K/uL (1.0-4.8); LYMPHOCYTES % (AUTO) 51.6 % (22.0-44.0); MEAN CORPUSCULAR HGB CONC 33.3 G/dL (31.0-37.0); MEAN CORPUSCULAR VOLUME 87 fL (80-100); MONOCYTES # (AUTO) 0.6 K/uL (0.1-1.0); MONOCYTES % (AUTO) 14.5 % (2.0-9.0); NEUTROPHILS # (AUTO) 1.1 K/uL (1.8-7.7); NEUTROPHILS % (AUTO) 27.7 % (40.0-70.0); PLATELET COUNT (AUTO) 204 K/uL (150-450); RED BLOOD CELL COUNT(AUTO) 3.81 MIL/uL (4.00-5.20); RED CELL DISTRIBUTION WIDTH 15.2 % (11.5-14.5)
[2018-01-26] MEDS: LEVOTHYROXINE SODIUM 50 MCG TABLET PO SCH (06:18)
[2018-01-26 06:23] LABS: ALANINE AMINOTRANSFERASE 39 U/L (12-78); ALBUMIN 2.3 g/dL (3.4-5.0); ALKALINE PHOSPHATASE 121 U/L (46-116); ANION GAP 5 mmol/L (8-16); ASPARTATE AMINOTRANSFERASE 48 U/L (15-37); BILIRUBIN,TOTAL 0.4 mg/dL (0.1-1.0); CALCIUM, TOTAL 7.8 mg/dL (8.8-10.5); CARBON DIOXIDE 31 mmol/L (22-29); CHLORIDE 105 mmol/L (98-107); CREATININE 0.99 mg/dL (0.60-1.30); GLOMERULAR FILTR. RATE CALC > 60 mL/min (>60); GLUCOSE,RANDOM 98 mg/dL (70-110); POTASSIUM 4.1 mmol/L (3.5-5.1); SODIUM SERUM 141 mmol/L (136-145); TOTAL PROTEIN, SERUM 6.4 g/dL (6.4-8.2); UREA NITROGEN, BLOOD 9 mg/dL (7-18)
[2018-01-26] MEDS: CHOLECALCIFEROL (VIT D3) 1,000 UNITS TABLET PO SCH (09:18)
[2018-01-26] MEDS: ASPIRIN 81 MG EC TABLET PO SCH (09:18)
[2018-01-26] MEDS: CARVEDILOL PHOSPHATE 10 MG CR CAPSULE PO SCH (09:18)
[2018-01-26] MEDS: ATORVASTATIN CALCIUM 40 MG TABLET PO SCH (09:18)
[2018-01-26] MEDS: LISINOPRIL 5 MG TABLET PO SCH (09:19)
[2018-01-26] MEDS: FOLIC ACID 1 MG TABLET PO SCH (09:19)
[2018-01-26] MEDS: ESCITALOPRAM OXALATE 20 MG TABLET PO SCH (09:19)
[2018-01-26] MEDS: OMEPRAZOLE 20 MG CAPSULE PO SCH (09:19)
[2018-01-26] MEDS: POTASSIUM CHLORIDE 8 MEQ ER TABLET PO SCH (09:19)
[2018-01-26] MEDS: DOCUSATE SODIUM 100 MG CAPSULE PO SCH ×2 (09:20→20:23)
[2018-01-26] MEDS: FUROSEMIDE 40 MG/4 ML VIAL IVP SCH ×2 (09:20→20:22)
[2018-01-26] MEDS: HEPARIN SODIUM,PORCINE 5,000 UNITS/ML VIAL SQ SCH ×3 (09:23→17:33)
[2018-01-26] MEDS: MIRTAZAPINE 15 MG TABLET PO SCH (20:22)
[2018-01-27] VITALS (9 sets, daily range): BP systolic 83–110; BP diastolic 44–66
[2018-01-27] MEDS: HEPARIN SODIUM,PORCINE 5,000 UNITS/ML VIAL SQ SCH ×3 (00:12→16:11)
[2018-01-27] MEDS: HYDROCODONE/ACETAMINOPHEN 5-325 MG TABLET PO PRN ×4 (03:21→20:35)
[2018-01-27] MEDS: LEVOTHYROXINE SODIUM 50 MCG TABLET PO SCH (05:51)
[2018-01-27 06:00] LABS: BASOPHILS % (AUTO) 0.3 % (0.0-2.0); EOSINOPHILS % (AUTO) 4.9 % (1.0-6.0); HEMATOCRIT 34.4 % (36-46); HEMOGLOBIN 11.2 g/dL (12.0-16.0); LYMPHOCYTES # (AUTO) 2.7 K/uL (1.0-4.8); LYMPHOCYTES % (AUTO) 51.8 % (22.0-44.0); MEAN CORPUSCULAR HEMOGLOBIN 28.6 pg (26.0-34.0); MEAN CORPUSCULAR HGB CONC 32.7 G/dL (31.0-37.0); MEAN CORPUSCULAR VOLUME 88 fL (80-100); MONOCYTES # (AUTO) 0.7 K/uL (0.1-1.0); MONOCYTES % (AUTO) 13.2 % (2.0-9.0); NEUTROPHILS # (AUTO) 1.5 K/uL (1.8-7.7); NEUTROPHILS % (AUTO) 29.8 % (40.0-70.0); PLATELET COUNT (AUTO) 208 K/uL (150-450); RED BLOOD CELL COUNT(AUTO) 3.93 MIL/uL (4.00-5.20)
[2018-01-27 06:06] LABS: ALBUMIN 2.3 g/dL (3.4-5.0); BILIRUBIN,TOTAL 0.3 mg/dL (0.1-1.0); CALCIUM, TOTAL 7.7 mg/dL (8.8-10.5); CREATININE 1.12 mg/dL (0.60-1.30); MAGNESIUM 1.6 mg/dL (1.80-2.40); POTASSIUM 4.9 mmol/L (3.5-5.1); TOTAL PROTEIN, SERUM 6.3 g/dL (6.4-8.2)
[2018-01-27] MEDS ORDERED: MAGNESIUM SULFATE 4 GM/WATER 100 ML IV ONE (08:00)
[2018-01-27] MEDS: CARVEDILOL PHOSPHATE 10 MG CR CAPSULE PO SCH (08:03)
[2018-01-27] MEDS: FUROSEMIDE 40 MG/4 ML VIAL IVP SCH (08:03)
[2018-01-27] MEDS: LISINOPRIL 5 MG TABLET PO SCH (08:04)
[2018-01-27] MEDS: OMEPRAZOLE 20 MG CAPSULE PO SCH (08:41)
[2018-01-27] MEDS: ATORVASTATIN CALCIUM 40 MG TABLET PO SCH (08:41)
[2018-01-27] MEDS: CHOLECALCIFEROL (VIT D3) 1,000 UNITS TABLET PO SCH (08:41)
[2018-01-27] MEDS: FOLIC ACID 1 MG TABLET PO SCH (08:41)
[2018-01-27] MEDS: POTASSIUM CHLORIDE 8 MEQ ER TABLET PO SCH (08:42)
[2018-01-27] MEDS: DOCUSATE SODIUM 100 MG CAPSULE PO SCH ×2 (08:42→20:35)
[2018-01-27] MEDS: ASPIRIN 81 MG EC TABLET PO SCH (08:42)
[2018-01-27] MEDS: ESCITALOPRAM OXALATE 20 MG TABLET PO SCH (08:43)
[2018-01-27] MEDS ORDERED: SODIUM CHLORIDE 0.9% 250 ML IV ONE (08:48)
[2018-01-27] MEDS ORDERED: MAGNESIUM OXIDE 400 MG TABLET PO SCH (09:00)
[2018-01-27] MEDS: MIRTAZAPINE 15 MG TABLET PO SCH (20:35)
[2018-01-28] MEDS: HEPARIN SODIUM,PORCINE 5,000 UNITS/ML VIAL SQ SCH ×4 (00:12→23:05)
[2018-01-28 03:13] VITALS: BP 108/71
[2018-01-28] MEDS: HYDROCODONE/ACETAMINOPHEN 5-325 MG TABLET PO PRN (03:19)
[2018-01-28] MEDS: LEVOTHYROXINE SODIUM 50 MCG TABLET PO SCH (06:24)
[2018-01-28 06:31] LABS: BASOPHILS % (AUTO) 0.6 % (0.0-2.0); HEMOGLOBIN 11.3 g/dL (12.0-16.0); LYMPHOCYTES # (AUTO) 2.7 K/uL (1.0-4.8); LYMPHOCYTES % (AUTO) 49.4 % (22.0-44.0); MEAN CORPUSCULAR HEMOGLOBIN 28.2 pg (26.0-34.0); MEAN CORPUSCULAR HGB CONC 32.4 G/dL (31.0-37.0); MEAN CORPUSCULAR VOLUME 87 fL (80-100); MONOCYTES # (AUTO) 0.8 K/uL (0.1-1.0); MONOCYTES % (AUTO) 14.3 % (2.0-9.0); NEUTROPHILS # (AUTO) 1.6 K/uL (1.8-7.7); NEUTROPHILS % (AUTO) 30.7 % (40.0-70.0); PLATELET COUNT (AUTO) 209 K/uL (150-450); RED BLOOD CELL COUNT(AUTO) 4.02 MIL/uL (4.00-5.20); RED CELL DISTRIBUTION WIDTH 15.2 % (11.5-14.5)
[2018-01-28 06:41] LABS: ALANINE AMINOTRANSFERASE 42 U/L (12-78); ALBUMIN 2.3 g/dL (3.4-5.0); ALKALINE PHOSPHATASE 134 U/L (46-116); ANION GAP 3 mmol/L (8-16); ASPARTATE AMINOTRANSFERASE 43 U/L (15-37); BILIRUBIN,TOTAL 0.4 mg/dL (0.1-1.0); CARBON DIOXIDE 30 mmol/L (22-29); CHLORIDE 105 mmol/L (98-107); CREATININE 1.05 mg/dL (0.60-1.30); GLOMERULAR FILTR. RATE CALC > 60 mL/min (>60); GLUCOSE,RANDOM 95 mg/dL (70-110); SODIUM SERUM 138 mmol/L (136-145); TOTAL PROTEIN, SERUM 6.7 g/dL (6.4-8.2); UREA NITROGEN, BLOOD 12 mg/dL (7-18)
[2018-01-28 06:57] LABS: POTASSIUM 5.9 mmol/L (3.5-5.1)
[2018-01-28 07:30] VITALS: BP 91/57
[2018-01-28] MEDS: MAGNESIUM OXIDE 400 MG TABLET PO SCH (07:54)
[2018-01-28] MEDS: ATORVASTATIN CALCIUM 40 MG TABLET PO SCH (07:54)
[2018-01-28] MEDS: OMEPRAZOLE 20 MG CAPSULE PO SCH (07:54)
[2018-01-28] MEDS: ASPIRIN 81 MG EC TABLET PO SCH (07:55)
[2018-01-28] MEDS: ESCITALOPRAM OXALATE 20 MG TABLET PO SCH (07:55)
[2018-01-28] MEDS: CHOLECALCIFEROL (VIT D3) 1,000 UNITS TABLET PO SCH (07:55)
[2018-01-28] MEDS: FOLIC ACID 1 MG TABLET PO SCH (07:55)
[2018-01-28] MEDS: POTASSIUM CHLORIDE 8 MEQ ER TABLET PO SCH (07:56)
[2018-01-28] MEDS: CARVEDILOL PHOSPHATE 10 MG CR CAPSULE PO SCH (07:57)
[2018-01-28] MEDS: DOCUSATE SODIUM 100 MG CAPSULE PO SCH ×3 (09:00→20:01)
[2018-01-28] MEDS: FUROSEMIDE 40 MG/4 ML VIAL IVP SCH (09:35)
[2018-01-28 11:54] VITALS: BP 95/61
[2018-01-28] MEDS ORDERED: INSULIN REGULAR, HUMAN 100 UNITS/ML IVP ONE (13:00)
[2018-01-28] MEDS ORDERED: DEXTROSE 50%-WATER 25 GM/50 ML SYRINGE IVP ONE (13:15)
[2018-01-28 15:48] VITALS: BP 89/57
[2018-01-28] MEDS ORDERED: SODIUM POLYSTYRENE SULFONATE 15 GM/60 ML SUSPENSION BOTTLE PO ONE (19:30)
[2018-01-28 19:35] VITALS: BP 97/52
[2018-01-28] MEDS: MIRTAZAPINE 15 MG TABLET PO SCH (19:56)
[2018-01-29 00:26] VITALS: BP 96/56
[2018-01-29] MEDS: LEVOTHYROXINE SODIUM 50 MCG TABLET PO SCH (04:46)
[2018-01-29 06:25] LABS: ANION GAP 2 mmol/L (8-16); CALCIUM, TOTAL 7.9 mg/dL (8.8-10.5); CARBON DIOXIDE 32 mmol/L (22-29); CHLORIDE 102 mmol/L (98-107); CREATININE 1.02 mg/dL (0.60-1.30); GLOMERULAR FILTR. RATE CALC > 60 mL/min (>60); GLUCOSE,RANDOM 97 mg/dL (70-110); POTASSIUM 5.2 mmol/L (3.5-5.1); SODIUM SERUM 136 mmol/L (136-145); UREA NITROGEN, BLOOD 12 mg/dL (7-18)
[2018-01-29 07:45] VITALS: BP 90/57
[2018-01-29] MEDS: HEPARIN SODIUM,PORCINE 5,000 UNITS/ML VIAL SQ SCH ×2 (08:09→16:26)
[2018-01-29] MEDS: FOLIC ACID 1 MG TABLET PO SCH (08:09)
[2018-01-29] MEDS: FUROSEMIDE 40 MG/4 ML VIAL IVP SCH (08:09)
[2018-01-29] MEDS: MAGNESIUM OXIDE 400 MG TABLET PO SCH (08:09)
[2018-01-29] MEDS: ATORVASTATIN CALCIUM 40 MG TABLET PO SCH (08:09)
[2018-01-29] MEDS: CHOLECALCIFEROL (VIT D3) 1,000 UNITS TABLET PO SCH (08:10)
[2018-01-29] MEDS: OMEPRAZOLE 20 MG CAPSULE PO SCH (08:10)
[2018-01-29] MEDS: ASPIRIN 81 MG EC TABLET PO SCH (08:10)
[2018-01-29] MEDS: DOCUSATE SODIUM 100 MG CAPSULE PO SCH ×2 (08:52→20:30)
[2018-01-29] MEDS: CARVEDILOL PHOSPHATE 10 MG CR CAPSULE PO SCH (08:52)
[2018-01-29] MEDS: ESCITALOPRAM OXALATE 20 MG TABLET PO SCH (08:55)
[2018-01-29 11:22] VITALS: BP 98/61
[2018-01-29 15:52] VITALS: BP 102/63
[2018-01-29] MEDS: ACETAMINOPHEN 325 MG TABLET PO PRN (16:26)
[2018-01-29 19:30] VITALS: BP 99/62
[2018-01-29] MEDS: MIRTAZAPINE 15 MG TABLET PO SCH (20:25)
[2018-01-29 23:43] VITALS: BP 116/76
[2018-01-30] MEDS: HEPARIN SODIUM,PORCINE 5,000 UNITS/ML VIAL SQ SCH ×4 (01:00→23:44)
[2018-01-30 04:12] VITALS: BP 114/72
[2018-01-30] MEDS: HYDROCODONE/ACETAMINOPHEN 5-325 MG TABLET PO PRN ×3 (04:16→15:21)
[2018-01-30] MEDS: LEVOTHYROXINE SODIUM 50 MCG TABLET PO SCH (05:45)
[2018-01-30 06:42] LABS: ALANINE AMINOTRANSFERASE 40 U/L (12-78); ALBUMIN 2.5 g/dL (3.4-5.0); ALKALINE PHOSPHATASE 130 U/L (46-116); ANION GAP 4 mmol/L (8-16); ASPARTATE AMINOTRANSFERASE 42 U/L (15-37); BILIRUBIN,TOTAL 0.3 mg/dL (0.1-1.0); CALCIUM, TOTAL 8.3 mg/dL (8.8-10.5); CARBON DIOXIDE 30 mmol/L (22-29); CHLORIDE 102 mmol/L (98-107); CREATININE 1.03 mg/dL (0.60-1.30); GLOMERULAR FILTR. RATE CALC > 60 mL/min (>60); GLUCOSE,RANDOM 99 mg/dL (70-110); POTASSIUM 5.1 mmol/L (3.5-5.1); SODIUM SERUM 136 mmol/L (136-145); TOTAL PROTEIN, SERUM 7.1 g/dL (6.4-8.2); UREA NITROGEN, BLOOD 12 mg/dL (7-18)
[2018-01-30 07:30] VITALS: BP 92/60
[2018-01-30] MEDS: FOLIC ACID 1 MG TABLET PO SCH (08:36)
[2018-01-30] MEDS: FUROSEMIDE 40 MG/4 ML VIAL IVP SCH ×2 (08:36→19:54)
[2018-01-30] MEDS: ASPIRIN 81 MG EC TABLET PO SCH (08:37)
[2018-01-30] MEDS: OMEPRAZOLE 20 MG CAPSULE PO SCH (08:37)
[2018-01-30] MEDS: MAGNESIUM OXIDE 400 MG TABLET PO SCH (08:37)
[2018-01-30] MEDS: CHOLECALCIFEROL (VIT D3) 1,000 UNITS TABLET PO SCH (08:37)
[2018-01-30] MEDS: ESCITALOPRAM OXALATE 20 MG TABLET PO SCH (08:38)
[2018-01-30] MEDS: ATORVASTATIN CALCIUM 40 MG TABLET PO SCH (08:38)
[2018-01-30] MEDS: CARVEDILOL PHOSPHATE 10 MG CR CAPSULE PO SCH (08:38)
[2018-01-30] MEDS: DOCUSATE SODIUM 100 MG CAPSULE PO SCH ×2 (08:41→19:54)
[2018-01-30 11:16] VITALS: BP 111/72
[2018-01-30] MEDS ORDERED: SODIUM CHLORIDE 0.9% 2,000 ML IV ONE (12:54)
[2018-01-30 15:06] VITALS: BP 97/67
[2018-01-30] MEDS ORDERED: ASPI-1182 PO (17:58)
[2018-01-30] MEDS ORDERED: ATOR40TA28 PO (17:58)
[2018-01-30 19:53] VITALS: BP 100/70
[2018-01-30] MEDS: MIRTAZAPINE 15 MG TABLET PO SCH (19:55)
[2018-01-30 23:48] VITALS: BP 114/68
[2018-01-31 04:14] VITALS: BP 102/63
[2018-01-31] MEDS: LEVOTHYROXINE SODIUM 50 MCG TABLET PO SCH (05:44)
[2018-01-31 07:04] LABS: BASOPHILS % (AUTO) 1.2 % (0.0-2.0); EOSINOPHILS % (AUTO) 1.6 % (1.0-6.0); HEMATOCRIT 38.8 % (36-46); HEMOGLOBIN 12.8 g/dL (12.0-16.0); LYMPHOCYTES # (AUTO) 3.2 K/uL (1.0-4.8); MEAN CORPUSCULAR HEMOGLOBIN 28.2 pg (26.0-34.0); MEAN CORPUSCULAR HGB CONC 32.9 G/dL (31.0-37.0); MEAN CORPUSCULAR VOLUME 86 fL (80-100); MONOCYTES # (AUTO) 0.9 K/uL (0.1-1.0); MONOCYTES % (AUTO) 13.3 % (2.0-9.0); NEUTROPHILS # (AUTO) 2.2 K/uL (1.8-7.7); NEUTROPHILS % (AUTO) 33.9 % (40.0-70.0); PLATELET COUNT (AUTO) 222 K/uL (150-450); RED BLOOD CELL COUNT(AUTO) 4.53 MIL/uL (4.00-5.20); RED CELL DISTRIBUTION WIDTH 16.2 % (11.5-14.5)
[2018-01-31 07:17] LABS: ALANINE AMINOTRANSFERASE 40 U/L (12-78); ALBUMIN 2.7 g/dL (3.4-5.0); ALKALINE PHOSPHATASE 144 U/L (46-116); ANION GAP 4 mmol/L (8-16); ASPARTATE AMINOTRANSFERASE 50 U/L (15-37); BILIRUBIN,TOTAL 0.4 mg/dL (0.1-1.0); CALCIUM, TOTAL 8.5 mg/dL (8.8-10.5); CARBON DIOXIDE 31 mmol/L (22-29); CHLORIDE 102 mmol/L (98-107); CREATININE 1.08 mg/dL (0.60-1.30); GLOMERULAR FILTR. RATE CALC > 60 mL/min (>60); GLUCOSE,RANDOM 89 mg/dL (70-110); POTASSIUM 4.7 mmol/L (3.5-5.1); SODIUM SERUM 137 mmol/L (136-145); TOTAL PROTEIN, SERUM 7.7 g/dL (6.4-8.2); UREA NITROGEN, BLOOD 15 mg/dL (7-18)
[2018-01-31 07:21] VITALS: BP 104/68
[2018-01-31] MEDS: ASPIRIN 81 MG EC TABLET PO SCH (08:30)
[2018-01-31] MEDS: FOLIC ACID 1 MG TABLET PO SCH (08:30)
[2018-01-31] MEDS: HEPARIN SODIUM,PORCINE 5,000 UNITS/ML VIAL SQ SCH (08:30)
[2018-01-31] MEDS: HYDROCODONE/ACETAMINOPHEN 5-325 MG TABLET PO PRN (08:30)
[2018-01-31] MEDS: ATORVASTATIN CALCIUM 40 MG TABLET PO SCH (08:30)
[2018-01-31] MEDS: CARVEDILOL PHOSPHATE 10 MG CR CAPSULE PO SCH (08:31)
[2018-01-31] MEDS: OMEPRAZOLE 20 MG CAPSULE PO SCH (08:31)
[2018-01-31] MEDS: DOCUSATE SODIUM 100 MG CAPSULE PO SCH (08:31)
[2018-01-31] MEDS: CHOLECALCIFEROL (VIT D3) 1,000 UNITS TABLET PO SCH (08:31)
[2018-01-31] MEDS: MAGNESIUM OXIDE 400 MG TABLET PO SCH (08:31)
[2018-01-31] MEDS: ESCITALOPRAM OXALATE 20 MG TABLET PO SCH (08:31)
[2018-01-31] MEDS: FUROSEMIDE 40 MG/4 ML VIAL IVP SCH (08:32)
== END 2018-01-31 11:15 | disposition home or self-care (01) | DRG 291 ==
LOC: EMS 03:52 → ICU 07:34 → 5N 01-27 05:41
PROVIDERS: ADMIT Internal Medicine; ATTEND Internal Medicine
PROC: 5A09357 Assistance with Respiratory Ventilation, Less than 24 Consecutive Hours, Continuous Positive Airway Pressure (ICD-10-PCS; principal; 2018-01-24)
DX: I13.0 Hypertensive heart and chronic kidney disease with heart failure and stage 1 through stage 4 chronic kidney disease, or unspecified chronic kidney disease (principal); J96.01 Acute respiratory failure with hypoxia; E43 Unspecified severe protein-calorie malnutrition; I50.43 Acute on chronic combined systolic (congestive) and diastolic (congestive) heart failure; I47.2 Ventricular tachycardia; Z68.1 Body mass index [BMI] 19.9 or less, adult; K21.9 Gastro-esophageal reflux disease without esophagitis; E03.9 Hypothyroidism, unspecified; G89.29 Other chronic pain; E11.22 Type 2 diabetes mellitus with diabetic chronic kidney disease; F10.21 Alcohol dependence, in remission; E55.9 Vitamin D deficiency, unspecified; B19.20 Unspecified viral hepatitis C without hepatic coma; E83.42 Hypomagnesemia; E87.5 Hyperkalemia; I08.1 Rheumatic disorders of both mitral and tricuspid valves; I42.9 Cardiomyopathy, unspecified; N18.9 Chronic kidney disease, unspecified; F12.90 Cannabis use, unspecified, uncomplicated; Z95.810 Presence of automatic (implantable) cardiac defibrillator; Z79.899 Other long term (current) drug therapy; Z87.01 Personal history of pneumonia (recurrent)
CPT/HCPCS: 51702; 83605; 83735; 84132; 87040; 87081; 93005; 94660; 96365; 96375; 99285; J1250; J1644; J1815; J1940; J2270; J3475; J7030; J7050

== ENCOUNTER 2018-05-23 06:10 | Inpatient (IN) | payer OTHER ==
[~2018-05-23] VITALS: Ht 165.1 cm; Wt 49.3 kg
[~2018-05-23 06:10] MED LIST changes: +ASPI-1182 PO; +ATOR40TA28 PO; -CHOL200016 PO; +CHOL200059 PO; -SLOWK8 PO
[2018-05-23 07:14] LABS: INFLUENZA TYPE A NEGATIVE FOR TYPE A (NEGATIVE); INFLUENZA TYPE B NEGATIVE FOR TYPE B (NEGATIVE)
[2018-05-23] MEDS ORDERED: FUROSEMIDE 40 MG/4 ML VIAL IVP ONE (07:15)
[2018-05-23 07:43] LABS: BASOPHILS % (AUTO) 0.9 % (0.0-2.0); HEMOGLOBIN 9.8 g/dL (12.0-16.0); LYMPHOCYTES # (AUTO) 1.3 K/uL (1.0-4.8); LYMPHOCYTES % (AUTO) 43.1 % (22.0-44.0); MEAN CORPUSCULAR HEMOGLOBIN 29.4 pg (26.0-34.0); MEAN CORPUSCULAR HGB CONC 31.7 G/dL (31.0-37.0); MEAN CORPUSCULAR VOLUME 93 fL (80-100); MONOCYTES # (AUTO) 0.4 K/uL (0.1-1.0); MONOCYTES % (AUTO) 13.1 % (2.0-9.0); NEUTROPHILS # (AUTO) 1.2 K/uL (1.8-7.7); NEUTROPHILS % (AUTO) 41.9 % (40.0-70.0); PLATELET COUNT (AUTO) 177 K/uL (150-450); RED BLOOD CELL COUNT(AUTO) 3.35 MIL/uL (4.00-5.20); RED CELL DISTRIBUTION WIDTH 20.8 % (11.5-14.5)
[2018-05-23] MEDS ORDERED: ONDANSETRON HCL 4 MG/2 ML VIAL IVP ONE (07:45)
[2018-05-23] MEDS ORDERED: MORPHINE SULFATE 2 MG/ML SYRINGE IVP ONE (07:45)
[2018-05-23 07:57] LABS: INR 1.4 (0.9-1.1); PROTHROMBIN TIME 14.1 SEC (9.4-11.6)
[2018-05-23 08:00] LABS: ANION GAP 10 mmol/L (8-16); CALCIUM, TOTAL 7.4 mg/dL (8.8-10.5); CARBON DIOXIDE 22 mmol/L (22-29); CHLORIDE 111 mmol/L (98-107); CREATININE 0.89 mg/dL (0.60-1.30); GLOMERULAR FILTR. RATE CALC > 60 mL/min (>60); GLUCOSE,RANDOM 120 mg/dL (70-110); SODIUM SERUM 143 mmol/L (136-145); UREA NITROGEN, BLOOD 7 mg/dL (7-18)
[2018-05-23] MEDS ORDERED: CARVEDILOL PHOSPHATE 10 MG CR CAPSULE PO ONE (08:00)
[2018-05-23 08:06] LABS: ALANINE AMINOTRANSFERASE 29 U/L (12-78); ALBUMIN 2.9 g/dL (3.4-5.0); ALKALINE PHOSPHATASE 101 U/L (46-116); ASPARTATE AMINOTRANSFERASE 63 U/L (15-37); BILIRUBIN,TOTAL 0.6 mg/dL (0.1-1.0); CREATINE KINASE, TOTAL ONLY 45 U/L (26-192); TOTAL PROTEIN, SERUM 6.8 g/dL (6.4-8.2)
[2018-05-23 08:09] LABS: B-TYPE NATRIURETIC PEPTIDE 923 pg/mL (0-100)
[2018-05-23 08:23] LABS: APPEARANCE,URINE CLEAR (CLEAR); BILIRUBIN,URINE NEGATIVE (NEGATIVE); GLUCOSE, URINE (UA) NEGATIVE (NEGATIVE); KETONES,URINE NEGATIVE (NEGATIVE); LEUKOCYTE ESTERASE ,URINE TRACE (NEGATIVE); NITRATE,URINE NEGATIVE (NEGATIVE); OCCULT BLOOD,URINE NEGATIVE (NEGATIVE); PROTEIN,URINE NEGATIVE (NEGATIVE); UROBILINOGEN,URINE 0.2 mg/dL (<=1.0)
[2018-05-23 08:33] LABS: BACTERIA,URINE None Seen /HPF (None Seen); RBC,URINE None Seen /HPF (0-2); SQUAMOUS EPITHELIAL CELL,UR Few /LPF (None Seen); WBC,URINE 0-2 /HPF (0-5)
[2018-05-23] MEDS ORDERED: FERR-89 PO (13:06)
[2018-05-23] MEDS ORDERED: -PHARMACY VACCINE NOTE- MISC ONE (13:45)
[2018-05-23 13:55] VITALS: BP 109/87
[2018-05-23] MEDS ORDERED: ACETAMINOPHEN 325 MG TABLET PO PRN ×2 (15:30→16:30)
[2018-05-23] MEDS ORDERED: MORPHINE SULFATE 2 MG/ML SYRINGE IVP PRN ×2 (16:00→16:30)
[2018-05-23] MEDS ORDERED: BISACODYL 10 MG RECTAL RECTAL SUPPOSITORY PR PRN (16:30)
[2018-05-23] MEDS ORDERED: IPRATROPIUM BROMIDE 0.5 MG/2.5 ML NEB SOLUTION NEB PRN (16:30)
[2018-05-23] MEDS ORDERED: MAGNESIUM HYDROXIDE SUSPENSION 30 ML UDCUP PO PRN (16:30)
[2018-05-23] MEDS ORDERED: ALBUTEROL SULFATE 2.5 MG/0.5 ML NEB SOLUTION NEB PRN (16:30)
[2018-05-23] MEDS ORDERED: ONDANSETRON HCL 4 MG/2 ML VIAL IVP PRN (16:30)
[2018-05-23 19:33] VITALS: BP 100/62
[2018-05-23] MEDS: MIRTAZAPINE 15 MG TABLET PO SCH (20:00)
[2018-05-23] MEDS: FUROSEMIDE 40 MG/4 ML VIAL IVP SCH (20:00)
[2018-05-23] MEDS: HYDROCODONE/ACETAMINOPHEN 5-325 MG TABLET PO PRN (20:01)
[2018-05-23] MEDS: ATORVASTATIN CALCIUM 40 MG TABLET PO SCH (20:01)
[2018-05-23] MEDS: DOCUSATE SODIUM 100 MG CAPSULE PO SCH (20:03)
[2018-05-23] MEDS: HEPARIN SODIUM,PORCINE 5,000 UNITS/ML VIAL SQ SCH (23:15)
[2018-05-23 23:26] VITALS: BP 102/62
[2018-05-24] VITALS (8 sets, daily range): BP systolic 94–113; BP diastolic 60–76
[2018-05-24] MEDS: HYDROCODONE/ACETAMINOPHEN 5-325 MG TABLET PO PRN ×3 (03:39→18:56)
[2018-05-24] MEDS: LEVOTHYROXINE SODIUM 50 MCG TABLET PO SCH (05:27)
[2018-05-24] MEDS: OMEPRAZOLE 20 MG CAPSULE PO SCH (08:44)
[2018-05-24] MEDS: FOLIC ACID 1 MG TABLET PO SCH (08:44)
[2018-05-24] MEDS: CHOLECALCIFEROL (VIT D3) 2,000 UNITS TABLET PO SCH (08:44)
[2018-05-24] MEDS: HEPARIN SODIUM,PORCINE 5,000 UNITS/ML VIAL SQ SCH ×3 (08:44→23:25)
[2018-05-24] MEDS: ASPIRIN 81 MG EC TABLET PO SCH (08:45)
[2018-05-24] MEDS: ESCITALOPRAM OXALATE 20 MG TABLET PO SCH (08:45)
[2018-05-24] MEDS: DOCUSATE SODIUM 100 MG CAPSULE PO SCH ×2 (08:45→21:00)
[2018-05-24] MEDS: FUROSEMIDE 40 MG/4 ML VIAL IVP SCH ×2 (08:54→21:16)
[2018-05-24] MEDS ORDERED: PANTOPRAZOLE SODIUM 40 MG/VIAL IVP SCH (09:00)
[2018-05-24] MEDS: CARVEDILOL PHOSPHATE 10 MG CR CAPSULE PO SCH (10:09)
[2018-05-24] MEDS: MIRTAZAPINE 15 MG TABLET PO SCH (21:16)
[2018-05-24] MEDS: ATORVASTATIN CALCIUM 40 MG TABLET PO SCH (21:16)
[2018-05-24] MEDS: ZOLPIDEM TARTRATE 5 MG TABLET PO PRN (22:43)
[2018-05-25] VITALS (7 sets, daily range): BP systolic 90–108; BP diastolic 59–71
[2018-05-25] MEDS: LEVOTHYROXINE SODIUM 50 MCG TABLET PO SCH (05:31)
[2018-05-25 06:52] LABS: BASOPHILS % (AUTO) 0.6 % (0.0-2.0); EOSINOPHILS % (AUTO) 1.3 % (1.0-6.0); HEMATOCRIT 30.9 % (36-46); HEMOGLOBIN 9.8 g/dL (12.0-16.0); LYMPHOCYTES # (AUTO) 2.4 K/uL (1.0-4.8); LYMPHOCYTES % (AUTO) 65.2 % (22.0-44.0); MEAN CORPUSCULAR HEMOGLOBIN 29.2 pg (26.0-34.0); MEAN CORPUSCULAR HGB CONC 31.8 G/dL (31.0-37.0); MEAN CORPUSCULAR VOLUME 92 fL (80-100); MONOCYTES # (AUTO) 0.6 K/uL (0.1-1.0); MONOCYTES % (AUTO) 17.6 % (2.0-9.0); NEUTROPHILS # (AUTO) 0.6 K/uL (1.8-7.7); NEUTROPHILS % (AUTO) 15.3 % (40.0-70.0); PLATELET COUNT (AUTO) 145 K/uL (150-450); RED BLOOD CELL COUNT(AUTO) 3.37 MIL/uL (4.00-5.20); RED CELL DISTRIBUTION WIDTH 20.9 % (11.5-14.5)
[2018-05-25 07:16] LABS: ALANINE AMINOTRANSFERASE 30 U/L (12-78); ALBUMIN 2.5 g/dL (3.4-5.0); ALKALINE PHOSPHATASE 92 U/L (46-116); ANION GAP 5 mmol/L (8-16); ASPARTATE AMINOTRANSFERASE 45 U/L (15-37); BILIRUBIN,TOTAL 0.5 mg/dL (0.1-1.0); CALCIUM, TOTAL 6.2 mg/dL (8.8-10.5); CARBON DIOXIDE 30 mmol/L (22-29); CHLORIDE 99 mmol/L (98-107); CREATININE 0.96 mg/dL (0.60-1.30); GLOMERULAR FILTR. RATE CALC > 60 mL/min (>60); GLUCOSE,RANDOM 80 mg/dL (70-110); POTASSIUM 4.3 mmol/L (3.5-5.1); SODIUM SERUM 134 mmol/L (136-145); TOTAL PROTEIN, SERUM 6.2 g/dL (6.4-8.2); UREA NITROGEN, BLOOD 5 mg/dL (7-18)
[2018-05-25] MEDS: HEPARIN SODIUM,PORCINE 5,000 UNITS/ML VIAL SQ SCH ×3 (08:00→23:21)
[2018-05-25] MEDS: CARVEDILOL PHOSPHATE 10 MG CR CAPSULE PO SCH (08:15)
[2018-05-25] MEDS: FUROSEMIDE 40 MG/4 ML VIAL IVP SCH (08:15)
[2018-05-25] MEDS: ESCITALOPRAM OXALATE 20 MG TABLET PO SCH (08:18)
[2018-05-25] MEDS: CHOLECALCIFEROL (VIT D3) 2,000 UNITS TABLET PO SCH (08:18)
[2018-05-25] MEDS: OMEPRAZOLE 20 MG CAPSULE PO SCH (08:18)
[2018-05-25] MEDS: ASPIRIN 81 MG EC TABLET PO SCH (08:18)
[2018-05-25] MEDS: DOCUSATE SODIUM 100 MG CAPSULE PO SCH ×2 (08:18→21:00)
[2018-05-25] MEDS: FOLIC ACID 1 MG TABLET PO SCH (08:18)
[2018-05-25] MEDS: HYDROCODONE/ACETAMINOPHEN 5-325 MG TABLET PO PRN ×2 (13:47→18:42)
[2018-05-25] MEDS: MIRTAZAPINE 15 MG TABLET PO SCH (21:03)
[2018-05-25] MEDS: FUROSEMIDE 40 MG TABLET PO SCH (21:03)
[2018-05-25] MEDS: ATORVASTATIN CALCIUM 40 MG TABLET PO SCH (21:04)
[2018-05-25] MEDS: ZOLPIDEM TARTRATE 5 MG TABLET PO PRN (21:04)
[2018-05-26] VITALS (7 sets, daily range): BP systolic 105–139; BP diastolic 58–76
[2018-05-26] MEDS: HYDROCODONE/ACETAMINOPHEN 5-325 MG TABLET PO PRN ×4 (04:34→20:28)
[2018-05-26 06:05] LABS: BASOPHILS % (AUTO) 0.5 % (0.0-2.0); EOSINOPHILS % (AUTO) 1.4 % (1.0-6.0); HEMATOCRIT 30.3 % (36-46); HEMOGLOBIN 9.8 g/dL (12.0-16.0); LYMPHOCYTES # (AUTO) 2.5 K/uL (1.0-4.8); LYMPHOCYTES % (AUTO) 66.6 % (22.0-44.0); MEAN CORPUSCULAR HEMOGLOBIN 29.6 pg (26.0-34.0); MEAN CORPUSCULAR HGB CONC 32.2 G/dL (31.0-37.0); MEAN CORPUSCULAR VOLUME 92 fL (80-100); MONOCYTES # (AUTO) 0.6 K/uL (0.1-1.0); MONOCYTES % (AUTO) 16.5 % (2.0-9.0); NEUTROPHILS # (AUTO) 0.6 K/uL (1.8-7.7); PLATELET COUNT (AUTO) 148 K/uL (150-450); RED CELL DISTRIBUTION WIDTH 21.1 % (11.5-14.5)
[2018-05-26] MEDS: LEVOTHYROXINE SODIUM 50 MCG TABLET PO SCH (06:18)
[2018-05-26 06:25] LABS: % IRON SATURATION 11.5 % (22-44)
[2018-05-26 06:26] LABS: ALANINE AMINOTRANSFERASE 26 U/L (12-78); ALBUMIN 2.4 g/dL (3.4-5.0); ALKALINE PHOSPHATASE 95 U/L (46-116); ANION GAP 7 mmol/L (8-16); ASPARTATE AMINOTRANSFERASE 33 U/L (15-37); BILIRUBIN,TOTAL 0.4 mg/dL (0.1-1.0); CARBON DIOXIDE 29 mmol/L (22-29); CHLORIDE 97 mmol/L (98-107); CREATININE 0.95 mg/dL (0.60-1.30); GLOMERULAR FILTR. RATE CALC > 60 mL/min (>60); GLUCOSE,RANDOM 114 mg/dL (70-110); POTASSIUM 3.9 mmol/L (3.5-5.1); SODIUM SERUM 133 mmol/L (136-145); TOTAL PROTEIN, SERUM 5.9 g/dL (6.4-8.2); UREA NITROGEN, BLOOD 5 mg/dL (7-18)
[2018-05-26] MEDS: CARVEDILOL PHOSPHATE 10 MG CR CAPSULE PO SCH (08:08)
[2018-05-26] MEDS: FOLIC ACID 1 MG TABLET PO SCH (08:08)
[2018-05-26] MEDS: ESCITALOPRAM OXALATE 20 MG TABLET PO SCH (08:08)
[2018-05-26] MEDS: CHOLECALCIFEROL (VIT D3) 2,000 UNITS TABLET PO SCH (08:08)
[2018-05-26] MEDS: OMEPRAZOLE 20 MG CAPSULE PO SCH (08:08)
[2018-05-26] MEDS: DOCUSATE SODIUM 100 MG CAPSULE PO SCH ×2 (08:08→20:25)
[2018-05-26] MEDS: ASPIRIN 81 MG EC TABLET PO SCH (08:08)
[2018-05-26] MEDS: FUROSEMIDE 40 MG TABLET PO SCH ×2 (08:08→20:26)
[2018-05-26] MEDS: HEPARIN SODIUM,PORCINE 5,000 UNITS/ML VIAL SQ SCH ×3 (08:09→23:56)
[2018-05-26 12:14] LABS: POTASSIUM 4.4 mmol/L (3.5-5.1)
[2018-05-26 12:17] LABS: MAGNESIUM 0.9 mg/dL (1.80-2.40)
[2018-05-26] MEDS ORDERED: MAGNESIUM SULFATE 4 GM/WATER 100 ML IV ONE (13:15)
[2018-05-26] MEDS ORDERED: SODIUM CHLORIDE 0.9% 100 ML ONE (13:53)
[2018-05-26] MEDS ORDERED: MAGNESIUM OXIDE 400 MG TABLET PO ONE ×2 (14:15→18:00)
[2018-05-26] MEDS: ATORVASTATIN CALCIUM 40 MG TABLET PO SCH (20:27)
[2018-05-26] MEDS: ZOLPIDEM TARTRATE 5 MG TABLET PO PRN (20:27)
[2018-05-26] MEDS: MIRTAZAPINE 15 MG TABLET PO SCH (20:28)
[2018-05-27] MEDS: HYDROCODONE/ACETAMINOPHEN 5-325 MG TABLET PO PRN ×3 (02:53→14:25)
[2018-05-27 04:07] VITALS: BP 112/68
[2018-05-27] MEDS: LEVOTHYROXINE SODIUM 50 MCG TABLET PO SCH (05:57)
[2018-05-27 06:19] LABS: BASOPHILS % (AUTO) 0.5 % (0.0-2.0); EOSINOPHILS % (AUTO) 1.4 % (1.0-6.0); HEMATOCRIT 28.7 % (36-46); HEMOGLOBIN 9.3 g/dL (12.0-16.0); LYMPHOCYTES # (AUTO) 2.1 K/uL (1.0-4.8); LYMPHOCYTES % (AUTO) 56.6 % (22.0-44.0); MEAN CORPUSCULAR HEMOGLOBIN 29.6 pg (26.0-34.0); MEAN CORPUSCULAR HGB CONC 32.4 G/dL (31.0-37.0); MEAN CORPUSCULAR VOLUME 91 fL (80-100); MONOCYTES # (AUTO) 0.6 K/uL (0.1-1.0); MONOCYTES % (AUTO) 16.2 % (2.0-9.0); NEUTROPHILS # (AUTO) 0.9 K/uL (1.8-7.7); NEUTROPHILS % (AUTO) 25.3 % (40.0-70.0); PLATELET COUNT (AUTO) 143 K/uL (150-450); RED BLOOD CELL COUNT(AUTO) 3.14 MIL/uL (4.00-5.20); RED CELL DISTRIBUTION WIDTH 20.9 % (11.5-14.5)
[2018-05-27 06:31] LABS: ALBUMIN 2.3 g/dL (3.4-5.0); BILIRUBIN,TOTAL 0.3 mg/dL (0.1-1.0); CALCIUM, TOTAL 6.7 mg/dL (8.8-10.5); CREATININE 1.14 mg/dL (0.60-1.30); MAGNESIUM 1.9 mg/dL (1.80-2.40); TOTAL PROTEIN, SERUM 5.7 g/dL (6.4-8.2)
[2018-05-27 07:44] VITALS: BP 99/67
[2018-05-27] MEDS: HEPARIN SODIUM,PORCINE 5,000 UNITS/ML VIAL SQ SCH ×2 (07:46→16:00)
[2018-05-27] MEDS: FUROSEMIDE 40 MG TABLET PO SCH (07:47)
[2018-05-27] MEDS: ASPIRIN 81 MG EC TABLET PO SCH (08:00)
[2018-05-27] MEDS: CARVEDILOL PHOSPHATE 10 MG CR CAPSULE PO SCH (08:00)
[2018-05-27] MEDS: FOLIC ACID 1 MG TABLET PO SCH (08:00)
[2018-05-27] MEDS: OMEPRAZOLE 20 MG CAPSULE PO SCH (08:01)
[2018-05-27] MEDS: ESCITALOPRAM OXALATE 20 MG TABLET PO SCH (08:01)
[2018-05-27] MEDS: CHOLECALCIFEROL (VIT D3) 2,000 UNITS TABLET PO SCH (08:01)
[2018-05-27] MEDS: DOCUSATE SODIUM 100 MG CAPSULE PO SCH (08:02)
[2018-05-27] MEDS ORDERED: MORPHINE SULFATE 4 MG/ML SYRINGE IVP PRN ×2 (11:15)
[2018-05-27 11:38] VITALS: BP 94/61
[2018-05-27 15:31] VITALS: BP 101/62
== END 2018-05-27 17:00 | disposition home or self-care (01) | DRG 291 ==
LOC: EMS 06:10 → 5S 10:24
PROVIDERS: ADMIT Hospitalist; ATTEND Hospitalist
PROC: 3E02340 Introduction of Influenza Vaccine into Muscle, Percutaneous Approach (ICD-10-PCS; principal; 2018-05-23)
PROC: 5A09357 Assistance with Respiratory Ventilation, Less than 24 Consecutive Hours, Continuous Positive Airway Pressure (ICD-10-PCS; 2018-05-23)
DX: I13.0 Hypertensive heart and chronic kidney disease with heart failure and stage 1 through stage 4 chronic kidney disease, or unspecified chronic kidney disease (principal); J96.01 Acute respiratory failure with hypoxia; I50.23 Acute on chronic systolic (congestive) heart failure; N18.9 Chronic kidney disease, unspecified; D64.9 Anemia, unspecified; D72.819 Decreased white blood cell count, unspecified; E03.9 Hypothyroidism, unspecified; E11.22 Type 2 diabetes mellitus with diabetic chronic kidney disease; E78.5 Hyperlipidemia, unspecified; I08.1 Rheumatic disorders of both mitral and tricuspid valves; E05.90 Thyrotoxicosis, unspecified without thyrotoxic crisis or storm; F12.90 Cannabis use, unspecified, uncomplicated; J44.9 Chronic obstructive pulmonary disease, unspecified; K21.9 Gastro-esophageal reflux disease without esophagitis; Z82.49 Family history of ischemic heart disease and other diseases of the circulatory system; Z82.5 Family history of asthma and other chronic lower respiratory diseases; Z95.810 Presence of automatic (implantable) cardiac defibrillator; Z79.82 Long term (current) use of aspirin; Z79.899 Other long term (current) drug therapy; Z23 Encounter for immunization
CPT/HCPCS: 71250; 83540; 83550; 83605; 83735; 84132; 87804; 90686; 93005; 94660; 96374; 96375; 99291; C9113; G0378; J1644; J1940; J2270; J2405; J3475; J7050

== ENCOUNTER 2018-06-02 08:45 | Emergency (ER) | payer OTHER ==
[~2018-06-02] VITALS: Ht 170.2 cm; Wt 81.8 kg
[~2018-06-02 08:45] MED LIST changes: +FERR-89 PO
[2018-06-02] MEDS ORDERED: HYDROCODONE/ACETAMINOPHEN 5-325 MG TABLET PO ONE (09:15)
[2018-06-02 09:45] LABS: BASOPHILS % (AUTO) 0.5 % (0.0-2.0); EOSINOPHILS % (AUTO) 0.7 % (1.0-6.0); HEMATOCRIT 29.9 % (36-46); HEMOGLOBIN 9.4 g/dL (12.0-16.0); LYMPHOCYTES # (AUTO) 1.5 K/uL (1.0-4.8); LYMPHOCYTES % (AUTO) 21.6 % (22.0-44.0); MEAN CORPUSCULAR HEMOGLOBIN 28.7 pg (26.0-34.0); MEAN CORPUSCULAR HGB CONC 31.5 G/dL (31.0-37.0); MEAN CORPUSCULAR VOLUME 91 fL (80-100); MONOCYTES # (AUTO) 0.7 K/uL (0.1-1.0); MONOCYTES % (AUTO) 10.1 % (2.0-9.0); NEUTROPHILS # (AUTO) 4.6 K/uL (1.8-7.7); NEUTROPHILS % (AUTO) 67.1 % (40.0-70.0); PLATELET COUNT (AUTO) 180 K/uL (150-450); RED BLOOD CELL COUNT(AUTO) 3.28 MIL/uL (4.00-5.20)
[2018-06-02 09:53] LABS: ANION GAP 8 mmol/L (8-16); CALCIUM, TOTAL 7.6 mg/dL (8.8-10.5); CARBON DIOXIDE 23 mmol/L (22-29); CHLORIDE 110 mmol/L (98-107); CREATININE 0.85 mg/dL (0.60-1.30); GLOMERULAR FILTR. RATE CALC > 60 mL/min (>60); GLUCOSE,RANDOM 96 mg/dL (70-110); POTASSIUM 3.7 mmol/L (3.5-5.1); SODIUM SERUM 141 mmol/L (136-145); UREA NITROGEN, BLOOD 6 mg/dL (7-18)
[2018-06-02 09:59] LABS: ALANINE AMINOTRANSFERASE 24 U/L (12-78); ALBUMIN 2.6 g/dL (3.4-5.0); ALKALINE PHOSPHATASE 88 U/L (46-116); ASPARTATE AMINOTRANSFERASE 30 U/L (15-37); BILIRUBIN,TOTAL 0.5 mg/dL (0.1-1.0); CREATINE KINASE, TOTAL ONLY 51 U/L (26-192); TOTAL PROTEIN, SERUM 6.6 g/dL (6.4-8.2)
[2018-06-02 10:15] LABS: B-TYPE NATRIURETIC PEPTIDE 1990 pg/mL (0-100)
[2018-06-02 11:46] VITALS: BP 122/74
== END 2018-06-02 12:01 | disposition home or self-care (01) ==
LOC: EMS 09:08
DX: S20.212A Contusion of left front wall of thorax, initial encounter (principal); I11.0 Hypertensive heart disease with heart failure; I50.9 Heart failure, unspecified; K21.9 Gastro-esophageal reflux disease without esophagitis; E07.9 Disorder of thyroid, unspecified; K76.9 Liver disease, unspecified; F12.90 Cannabis use, unspecified, uncomplicated; Z95.0 Presence of cardiac pacemaker; Z98.890 Other specified postprocedural states; Z79.82 Long term (current) use of aspirin; Z79.899 Other long term (current) drug therapy; W19.XXXA Unspecified fall, initial encounter; Y93.89 Activity, other specified; Y92.89 Other specified places as the place of occurrence of the external cause; Y99.8 Other external cause status
CPT/HCPCS: 93005

== ENCOUNTER 2018-06-14 20:01 | Emergency (ER) | payer OTHER, MEDICAID ==
[~2018-06-14] VITALS: Ht 167.6 cm; Wt 49.1 kg
[2018-06-14 21:39] LABS: BASOPHILS % (AUTO) 0.4 % (0.0-2.0); HEMATOCRIT 27.3 % (36-46); HEMOGLOBIN 8.6 g/dL (12.0-16.0); LYMPHOCYTES # (AUTO) 2.4 K/uL (1.0-4.8); LYMPHOCYTES % (AUTO) 54.4 % (22.0-44.0); MEAN CORPUSCULAR HEMOGLOBIN 28.8 pg (26.0-34.0); MEAN CORPUSCULAR HGB CONC 31.5 G/dL (31.0-37.0); MEAN CORPUSCULAR VOLUME 91 fL (80-100); MONOCYTES # (AUTO) 0.3 K/uL (0.1-1.0); MONOCYTES % (AUTO) 6.5 % (2.0-9.0); NEUTROPHILS # (AUTO) 1.7 K/uL (1.8-7.7); NEUTROPHILS % (AUTO) 37.7 % (40.0-70.0); PLATELET COUNT (AUTO) 176 K/uL (150-450); RED BLOOD CELL COUNT(AUTO) 2.99 MIL/uL (4.00-5.20); RED CELL DISTRIBUTION WIDTH 20.8 % (11.5-14.5)
[2018-06-14 21:47] LABS: ANION GAP 12 mmol/L (8-16); CALCIUM, TOTAL 6.8 mg/dL (8.8-10.5); CARBON DIOXIDE 22 mmol/L (22-29); CHLORIDE 113 mmol/L (98-107); CREATININE 0.68 mg/dL (0.60-1.30); GLOMERULAR FILTR. RATE CALC > 60 mL/min (>60); GLUCOSE,RANDOM 112 mg/dL (70-110); POTASSIUM 3.6 mmol/L (3.5-5.1); SODIUM SERUM 147 mmol/L (136-145); UREA NITROGEN, BLOOD 11 mg/dL (7-18)
[2018-06-14 21:55] LABS: ALANINE AMINOTRANSFERASE 59 U/L (12-78); ALBUMIN 2.7 g/dL (3.4-5.0); ALKALINE PHOSPHATASE 119 U/L (46-116); ASPARTATE AMINOTRANSFERASE 93 U/L (15-37); BILIRUBIN,TOTAL 0.4 mg/dL (0.1-1.0); TOTAL PROTEIN, SERUM 6.6 g/dL (6.4-8.2)
[2018-06-16 06:45] VITALS: BP 135/77
== END 2018-06-15 06:13 | disposition home or self-care (01) ==
LOC: EMS 20:02
DX: M79.622 Pain in left upper arm (principal); F10.20 Alcohol dependence, uncomplicated; I11.0 Hypertensive heart disease with heart failure; I50.9 Heart failure, unspecified; K21.9 Gastro-esophageal reflux disease without esophagitis; G89.29 Other chronic pain; E05.90 Thyrotoxicosis, unspecified without thyrotoxic crisis or storm; F12.90 Cannabis use, unspecified, uncomplicated; Z95.0 Presence of cardiac pacemaker; Z79.82 Long term (current) use of aspirin; Z79.899 Other long term (current) drug therapy; Y90.8 Blood alcohol level of 240 mg/100 ml or more
CPT/HCPCS: 36415; 70450; 73060; 80053; 85025; 99285; G0480

== ENCOUNTER 2018-07-12 04:29 | Emergency (ER) | payer OTHER ==
[~2018-07-12] VITALS: Ht 157.5 cm; Wt 57.6 kg
[2018-07-12 05:59] LABS: BASOPHILS % (AUTO) 0.6 % (0.0-2.0); EOSINOPHILS % (AUTO) 0.5 % (1.0-6.0); LYMPHOCYTES # (AUTO) 1.5 K/uL (1.0-4.8); LYMPHOCYTES % (AUTO) 24.5 % (22.0-44.0); MEAN CORPUSCULAR HEMOGLOBIN 26.8 pg (26.0-34.0); MEAN CORPUSCULAR HGB CONC 30.9 G/dL (31.0-37.0); MEAN CORPUSCULAR VOLUME 87 fL (80-100); MONOCYTES # (AUTO) 0.7 K/uL (0.1-1.0); MONOCYTES % (AUTO) 11.7 % (2.0-9.0); NEUTROPHILS # (AUTO) 3.9 K/uL (1.8-7.7); NEUTROPHILS % (AUTO) 62.7 % (40.0-70.0); PLATELET COUNT (AUTO) 199 K/uL (150-450); RED BLOOD CELL COUNT(AUTO) 2.14 MIL/uL (4.00-5.20); RED CELL DISTRIBUTION WIDTH 20.9 % (11.5-14.5)
[2018-07-12 06:08] LABS: ANION GAP 7 mmol/L (8-16); CALCIUM, TOTAL 7.1 mg/dL (8.8-10.5); CARBON DIOXIDE 25 mmol/L (22-29); CHLORIDE 112 mmol/L (98-107); CREATININE 0.78 mg/dL (0.60-1.30); GLOMERULAR FILTR. RATE CALC > 60 mL/min (>60); GLUCOSE,RANDOM 96 mg/dL (70-110); POTASSIUM 3.3 mmol/L (3.5-5.1); SODIUM SERUM 144 mmol/L (136-145); UREA NITROGEN, BLOOD 6 mg/dL (7-18)
[2018-07-12 06:11] LABS: INR 1.3 (0.9-1.1); PROTHROMBIN TIME 13.4 SEC (9.4-11.6)
[2018-07-12 06:15] LABS: ALANINE AMINOTRANSFERASE 19 U/L (12-78); ALBUMIN 2.4 g/dL (3.4-5.0); ALKALINE PHOSPHATASE 98 U/L (46-116); ASPARTATE AMINOTRANSFERASE 22 U/L (15-37); BILIRUBIN,TOTAL 0.4 mg/dL (0.1-1.0); CREATINE KINASE, TOTAL ONLY 25 U/L (26-192); HEMOGLOBIN 5.7 g/dL (12.0-16.0); TOTAL PROTEIN, SERUM 6.1 g/dL (6.4-8.2)
[2018-07-12 06:16] LABS: HEMATOCRIT 18.6 % (36-46)
[2018-07-12 06:41] LABS: THYROID STIMULATING HORMONE 1.51 uIU/mL (0.36-3.74)
[2018-07-12 06:42] LABS: B-TYPE NATRIURETIC PEPTIDE 1510 pg/mL (0-100)
[2018-07-12] MEDS ORDERED: POTASSIUM CHLORIDE 10% 40 MEQ/30 ML LIQUID UDCUP PO ONE (07:30)
[2018-07-12 10:07] VITALS: BP 118/78
== END 2018-07-12 10:07 | disposition short-term general hospital (02) ==
LOC: EMS 04:30
DX: I11.0 Hypertensive heart disease with heart failure (principal); I50.9 Heart failure, unspecified; E03.9 Hypothyroidism, unspecified; F12.90 Cannabis use, unspecified, uncomplicated; Z95.0 Presence of cardiac pacemaker; Z79.82 Long term (current) use of aspirin; Z79.899 Other long term (current) drug therapy
CPT/HCPCS: 36415; 71045; 80053; 82550; 83880; 84443; 84484; 85025; 85610; 85730; 86850; 86900; 86901; 86920; 93005; 99285; G0480

== ENCOUNTER 2018-07-18 03:58 | Emergency (ER) | payer OTHER ==
[~2018-07-18] VITALS: Ht 157.5 cm; Wt 50.3 kg
[2018-07-18 05:27] LABS: BASOPHILS % (AUTO) 0.6 % (0.0-2.0); EOSINOPHILS % (AUTO) 1.8 % (1.0-6.0); HEMATOCRIT 31.1 % (36-46); HEMOGLOBIN 9.8 g/dL (12.0-16.0); LYMPHOCYTES # (AUTO) 1.7 K/uL (1.0-4.8); LYMPHOCYTES % (AUTO) 25.7 % (22.0-44.0); MEAN CORPUSCULAR HEMOGLOBIN 28.1 pg (26.0-34.0); MEAN CORPUSCULAR HGB CONC 31.4 G/dL (31.0-37.0); MEAN CORPUSCULAR VOLUME 90 fL (80-100); MONOCYTES # (AUTO) 0.9 K/uL (0.1-1.0); MONOCYTES % (AUTO) 13.9 % (2.0-9.0); NEUTROPHILS # (AUTO) 3.8 K/uL (1.8-7.7); PLATELET COUNT (AUTO) 195 K/uL (150-450); RED BLOOD CELL COUNT(AUTO) 3.48 MIL/uL (4.00-5.20)
[2018-07-18 05:38] LABS: INR 1.3 (0.9-1.1); PROTHROMBIN TIME 13.6 SEC (9.4-11.6)
[2018-07-18 05:43] LABS: ANION GAP 7 mmol/L (8-16); CALCIUM, TOTAL 7.2 mg/dL (8.8-10.5); CARBON DIOXIDE 29 mmol/L (22-29); CHLORIDE 109 mmol/L (98-107); CREATININE 0.89 mg/dL (0.60-1.30); GLOMERULAR FILTR. RATE CALC > 60 mL/min (>60); GLUCOSE,RANDOM 105 mg/dL (70-110); POTASSIUM 3.6 mmol/L (3.5-5.1); SODIUM SERUM 145 mmol/L (136-145); UREA NITROGEN, BLOOD 4 mg/dL (7-18)
[2018-07-18 05:49] LABS: ALANINE AMINOTRANSFERASE 15 U/L (12-78); ALBUMIN 2.5 g/dL (3.4-5.0); ALKALINE PHOSPHATASE 99 U/L (46-116); ASPARTATE AMINOTRANSFERASE 22 U/L (15-37); B-TYPE NATRIURETIC PEPTIDE 1720 pg/mL (0-100); BILIRUBIN,TOTAL 0.5 mg/dL (0.1-1.0); CREATINE KINASE, TOTAL ONLY 34 U/L (26-192); TOTAL PROTEIN, SERUM 6.7 g/dL (6.4-8.2)
[2018-07-18] MEDS ORDERED: FUROSEMIDE 40 MG/4 ML VIAL IVP ONE (06:00)
[2018-07-18] MEDS ORDERED: NITROGLYCERIN 2% (1 GM=INCH) PACKET TP ONE (06:15)
[2018-07-18] MEDS ORDERED: ASPIRIN 81 MG CHEWABLE TABLET PO ONE (06:15)
[2018-07-18 07:50] LABS: APPEARANCE,URINE CLEAR (CLEAR); BILIRUBIN,URINE NEGATIVE (NEGATIVE); GLUCOSE, URINE (UA) NEGATIVE (NEGATIVE); KETONES,URINE NEGATIVE (NEGATIVE); LEUKOCYTE ESTERASE ,URINE NEGATIVE (NEGATIVE); NITRATE,URINE NEGATIVE (NEGATIVE); OCCULT BLOOD,URINE NEGATIVE (NEGATIVE); PH,URINE 6.5 (5.0-8.0); PROTEIN,URINE NEGATIVE (NEGATIVE); UROBILINOGEN,URINE 0.2 mg/dL (<=1.0)
[2018-07-18 09:09] VITALS: BP 112/87
== END 2018-07-18 09:11 | disposition short-term general hospital (02) ==
LOC: EMS 03:58
DX: I50.9 Heart failure, unspecified (principal); G89.29 Other chronic pain; K21.9 Gastro-esophageal reflux disease without esophagitis; F17.200 Nicotine dependence, unspecified, uncomplicated; F12.90 Cannabis use, unspecified, uncomplicated; Z79.82 Long term (current) use of aspirin; Z79.899 Other long term (current) drug therapy
CPT/HCPCS: 36415; 71045; 80053; 81003; 82550; 83880; 84484; 85025; 85610; 85730; 93005; 96374; 99285; J1940